=== PATIENT | female | born 1930 | race Caucasian/White ===

== ENCOUNTER 2016-08-28 20:53 | Emergency (ER) | payer MEDICARE, BC ==
[~2016-08-28] VITALS: Ht 154.9 cm; Wt 90.7 kg
[2016-08-28 22:00] VITALS: BP 139/90
[2016-08-28 22:04] LABS: BASO % 0 % (0-3); EOS % 2 % (0-3); HEMATOCRIT 35.1 % (36.0-47.0); HEMOGLOBIN 11.6 g/dL (12.0-15.5); LYMPH # 2.1 x10^3/uL (1.0-4.8); LYMPH % 24 % (24-48); MEAN CORPUSCULAR HEMOGLOBIN 31 pg (25-35); MEAN CORPUSCULAR HGB CONC 33 g/dL (31-37); MEAN CORPUSCULAR VOLUME 93 fL (79-100); MONO % 10 % (0-9); NEUT % 64 % (31-73); PLATELET COUNT 313 x10^3/uL (140-400); RED BLOOD COUNT 3.76 x10^6/uL (3.50-5.40); RED CELL DISTRIBUTION WIDTH 14.5 % (11.5-14.5); WHITE BLOOD COUNT 8.8 x10^3/uL (4.0-11.0)
[2016-08-28 22:15] LABS: CALCIUM 9.4 mg/dL (8.5-10.1); CREATININE 0.9 mg/dL (0.6-1.0); GFR 59.5; POTASSIUM 4.2 mmol/L (3.5-5.1)
[2016-08-28 22:22] LABS: ALBUMIN 3.1 g/dL (3.4-5.0); DIRECT BILIRUBIN 0.1 mg/dL (0.0-0.2); TOTAL BILIRUBIN 0.2 mg/dL (0.2-1.0); TOTAL PROTEIN 6.8 g/dL (6.4-8.2)
--- NOTE | 2016-08-28 22:51 | PHYS DOC ---
Past Medical History Past Medical History: Arthritis, Diabetes-Type II, Fibromyalgia, Hypertension Additional Past Medical Histor: NEUROPATHY Past Surgical History: Hysterectomy, Tonsillectomy Additional Past Surgical Histo: CATARACTS AND LENS IMPLANT TO BILAT EYES, COLON ABSCESS/RESECTION. Alcohol Use: None Drug Use: None Adult General Chief Complaint Chief Complaint: SHORTNESS OF BREATH HPI HPI Patient is a 85 year old female with history significant for hypertension and diabetes presents here today complaining of feeling short of breath earlier. Patient reports that she felt "weird feeling all over her body "with nausea. Patient reports that she thought that she was hungry earlier today so she walked over to the refrigerator to get something to eat while she was walking there she had a fleeting moment of shortness of breath. Patient reports she sat down and just didn't feel well. Patient reports his symptoms are pretty nonspecific. She ended up calling EMS because she still had this "weird feeling "all of her body. Patient is unable to levered any further about this weird feeling that she can't. Patient denies any fevers shakes chills, nausea vomiting diarrhea, chest pain, bowel pain, dysuria frequency or urgency. Patient denies any recent cough or URI symptoms. Patient denies any weakness, vision blurred vision headaches. Patient reports that she is had a full cardiac workup approximately 3-4 years ago and her implant polisher told her that her heart was normal. Patient is never had a cardiac catheter before. Patient has had a hysterectomy in the past however no other surgeries. She does not smoke drink or do any drugs. Patient is allergic to coffee. Patient's physical examination he has been unremarkable. Patient's alert awake and oriented 3. Patient's neuro exam is nonfocal. She is moving all her extremities well. Patient reports she normally walks with a walker.. Patient's heart-lung belly exam were all within normal limits. Patient was in no respiratory distress. Her lungs were clear with no wheezing rales or rhonchi. Her heart was regular rate and rhythm Patient's ER hospital course was significant for a normal workup in the ED. Patient's CBC chemistry troponin and BNP were all within normal limits. Patient' s chest x-ray revealed normal heart size without any infiltrates or effusions. A/P #1 short of breath. Etiology of the shortness of breath was unclear however the patient currently is asymptomatic. Patient's pulse ox is 95-99% in the ER. Patient's workup in the ER has not revealed any etiology for the "weird feeling " that she has been experiencing. Patient currently feels well. I discussed with the patient all the lab results and she feels very reassured and feels very comfortable with going home. Patient currently has no indication for further ER evaluation or inpatient. Review of Systems Review of Systems Constitutional: Denies fever or chills [] Eyes: Denies change in visual acuity, redness, or eye pain [] All other review systems are negative except as documented in the history of present illness portion Allergies Allergies Allergies Coded Allergies Type Severity Reaction Last Updated Verified Tetracyclines Allergy Intermediate 03/27/16 Yes amitriptyline Allergy Intermediate 03/27/16 Yes codeine Allergy Intermediate 03/27/16 Yes coffee (Coffea arabica) Allergy Intermediate 03/27/16 Yes erythromycin base Allergy Intermediate 03/27/16 Yes meperidine Allergy Intermediate 03/27/16 Yes morphine Allergy Intermediate 03/27/16 Yes prednisone Allergy Intermediate 03/27/16 Yes sucralose Allergy Intermediate 03/27/16 Yes Physical Exam Physical Exam Constitutional: Well developed, well nourished, no acute distress, non-toxic appearance. [] HENT: Normocephalic, atraumatic, bilateral external ears normal, oropharynx moist, no oral exudates, nose normal. [] Eyes: PERRLA, EOMI, conjunctiva normal, no discharge. [] Neck: Normal range of motion, no tenderness, supple, no stridor. [] Cardiovascular:Heart rate regular rhythm, no murmur [] Lungs & Thorax: Bilateral breath sounds clear to auscultation [] Abdomen: Bowel sounds normal, soft, no tenderness, no masses, no pulsatile masses. [] Skin: Warm, dry, no erythema, no rash. [] Back: No tenderness, no CVA tenderness. [] Extremities: No tenderness, no cyanosis, no clubbing, ROM intact, no edema. [] Neurologic: Alert and oriented X 3, normal motor function, normal sensory function, no focal deficits noted. [] Psychologic: Affect normal, judgement normal, mood normal. [] Current Patient Data Vital Signs Vital Signs Date Time Temp Pulse Resp B/P Pulse Ox O2 Delivery O2 Flow Rate FiO2 08/28/16 20:59 98.5 87 24 180/80 98 Room Air 98.5 Lab Values Laboratory Tests Test 08/28/16 21:38 White Blood Count 8.8x10^3/uL (4.0-11.0) Red Blood Count 3.76x10^6/uL (3.50-5.40) Hemoglobin 11.6g/dL (12.0-15.5) L Hematocrit 35.1% (36.0-47.0) L Mean Corpuscular Volume 93fL (79-100) Mean Corpuscular Hemoglobin 31pg (25-35) Mean Corpuscular Hemoglobin Concent 33g/dL (31-37) Red Cell Distribution Width 14.5% (11.5-14.5) Platelet Count 313x10^3/uL (140-400) Neutrophils (%) (Auto) 64% (31-73) Lymphocytes (%) (Auto) 24% (24-48) Monocytes (%) (Auto) 10% (0-9) H Eosinophils (%) (Auto) 2% (0-3) Basophils (%) (Auto) 0% (0-3) Neutrophils # (Auto) 5.7x10^3uL (1.8-7.7) Lymphocytes # (Auto) 2.1x10^3/uL (1.0-4.8) Monocytes # (Auto) 0.9x10^3/uL (0.0-1.1) Eosinophils # (Auto) 0.2x10^3/uL (0.0-0.7) Basophils # (Auto) 0.0x10^3/uL (0.0-0.2) Sodium Level 138mmol/L (136-145) Potassium Level 4.2mmol/L (3.5-5.1) Chloride Level 100mmol/L (98-107) Carbon Dioxide Level 28mmol/L (21-32) Anion Gap 10 (6-14) Blood Urea Nitrogen 27mg/dL (7-20) H Creatinine 0.9mg/dL (0.6-1.0) Estimated GFR (Cockcroft-Gault) 59.5 Glucose Level 176mg/dL (70-99) H Calcium Level 9.4mg/dL (8.5-10.1) Total Bilirubin 0.2mg/dL (0.2-1.0) Direct Bilirubin 0.1mg/dL (0.0-0.2) Aspartate Amino Transferase (AST) 20U/L (15-37) Alanine Aminotransferase (ALT) 14U/L (14-59) Alkaline Phosphatase 73U/L (46-116) Troponin I Quantitative < 0.017ng/mL (0.000-0.055) XP-Sin-V-Type Natriuretic Peptide 282pg/mL (0-449) Total Protein 6.8g/dL (6.4-8.2) Albumin 3.1g/dL (3.4-5.0) L Laboratory Tests 08/28/16 21:38 Laboratory Tests 08/28/16 21:38 EKG EKG [] Radiology/Procedures Radiology/Procedures [] Course & Med Decision Making Course & Med Decision Making Pertinent Labs and Imaging studies reviewed. (See chart for details) [] Dragon Disclaimer Dragon Disclaimer This electronic medical record was generated, in whole or in part, using a voice recognition dictation system. Departure Departure Impression: Primary Impression: Dyspnea Additional Impression: Weakness Disposition: 01 HOME, SELF-CARE Condition: IMPROVED Referrals: UNKNOWN PCP NAME (PCP) Patient Instructions: Shortness of Breath Additional Instructions: Please make an appointment to see her family doctor this week to be reevaluated. Please talk to him about whether or not you might need a B12 shot. Problem Qualifiers ANI PHAM MD Aug 28, 2016 22:51
--- NOTE | 2016-08-29 06:43 | EKG ---
[facility] [address] [place] [address] Test Date: 2016-08-28 Test Time: 21:00:55 Pat Name: JAMIE AGUILAR Department: Room: Gender: F [employer] Administrator: : 1930 Requested By: ANI PHAM Order Number: [id number] Reading MD: Virgil Cerna Measurements Intervals Gerald Rate: 89 P: 14 IN: 156 QRS: 12 QRSD: 66 T: 68 QT: 316 QTc: 390 Interpretive Statements SINUS RHYTHM LOW LIMB LEAD VOLTAGE T ABNORMALITY IN HIGH LATERAL LEADS RI6.01 Unconfirmed report No previous ECG available for comparison Electronically Signed On 08-29-2016 14:15:41 FIELD TRAINER by Virgil Cerna
--- NOTE | 2016-08-29 07:32 | RAD ---
EXAM: Chest one view. HISTORY: Shortness of breath, hypertension. COMPARISON: None. FINDINGS: A frontal view of the chest is obtained. Hyperinflation suggests chronic obstructive pulmonary disease. A mild opacity in the left costophrenic angle is most likely a fat pad versus atelectasis/scarring. There is no pneumothorax or pleural effusion. The heart is not enlarged. There are atherosclerotic calcifications of the aorta. IMPRESSION: 1. Hyperinflation suggests chronic obstructive pulmonary disease. 2. Mild left basilar atelectasis versus an epicardial fat pad.
== END 2016-08-28 23:30 | disposition home or self-care (01) ==
LOC: ER 20:53
DX: R06.00 Dyspnea, unspecified (principal); R53.1 Weakness; R11.0 Nausea; M19.90 Unspecified osteoarthritis, unspecified site; E11.40 Type 2 diabetes mellitus with diabetic neuropathy, unspecified; I10 Essential (primary) hypertension; M79.7 Fibromyalgia; Z90.710 Acquired absence of both cervix and uterus; Z88.5 Allergy status to narcotic agent; Z88.1 Allergy status to other antibiotic agents; Z88.8 Allergy status to other drugs, medicaments and biological substances; Z91.018 Allergy to other foods
CPT/HCPCS: 36415; 71010; 80048; 80076; 83880; 84484; 85027; 93005; 99285-25

== ENCOUNTER 2018-06-17 10:50 | Emergency (ER) | payer MEDICARE, BC ==
[~2018-06-17] VITALS: Ht 154.9 cm; Wt 90.7 kg
[2018-06-17] MEDS ORDERED: IV NORMAL SALINE 1000ML BAG 1,000 ML IV SCH (11:17)
--- NOTE | 2018-06-17 11:21 | PHYS DOC ---
Past Medical History Past Medical History: Arthritis, Diabetes-Type II, Fibromyalgia, Hypertension Additional Past Medical Histor: NEUROPATHY Past Surgical History: Hysterectomy, Tonsillectomy Additional Past Surgical Histo: CATARACTS AND LENS IMPLANT TO BILAT EYES, COLON ABSCESS/RESECTION. Alcohol Use: None Drug Use: None Adult General Chief Complaint Chief Complaint: DIARRHEA HPI HPI Patient is an 87-year-old female who arrives via EMS from her independent living facility, for complaints of diarrhea. She states she has been having diarrhea for about a month, but particularly worsened over the past week. She also complains of some generalized abdominal pain. She has not had any definite bloody stools. She has not had any fevers or chills, nausea or vomiting. She denies any recent travel or antibiotic use. There are no alleviating, or exacerbating factors to the patient's symptoms otherwise. Review of Systems Review of Systems Constitutional: Denies fever or chills [] Eyes: Denies change in visual acuity, redness, or eye pain [] HENT: Denies nasal congestion or sore throat [] Respiratory: Denies cough or shortness of breath [] Cardiovascular: The patient denies any shortness of breath, chest pain, palpitations, or orthopnea[] GI: No additional information not addressed in HPI [] : Denies dysuria or hematuria [] Musculoskeletal: Denies back pain or joint pain [] Integument: Denies rash or skin lesions [] Neurologic: Denies headache, focal weakness or sensory changes [] Endocrine: Denies polyuria or polydipsia [] All other systems were reviewed and found to be within normal limits, except as documented in this note. Current Medications Current Medications Current Medications Medications (Trade) Dose Ordered Sig/Ester Start Time Stop Time Status Last Admin Dose Admin Info (CONTRAST GIVEN -- Rx MONITORING) 1 each PRN DAILY PRN 06/17/18 13:30 06/19/18 13:29 Iohexol (Omnipaque 300 Mg/ml) 60 ml 1X ONCE 06/17/18 13:30 06/17/18 13:31 DC 06/17/18 13:47 60 ML Sodium Chloride 1,000 ml @ 100 mls/hr Q10H 06/17/18 11:17 06/17/18 21:16 06/17/18 11:17 100 MLS/HR Allergies Allergies Allergies Coded Allergies Type Severity Reaction Last Updated Verified Tetracyclines Allergy Intermediate 03/27/16 Yes amitriptyline Allergy Intermediate 03/27/16 Yes codeine Allergy Intermediate 03/27/16 Yes coffee (Coffea arabica) Allergy Intermediate 03/27/16 Yes erythromycin base Allergy Intermediate 03/27/16 Yes meperidine Allergy Intermediate 03/27/16 Yes morphine Allergy Intermediate 03/27/16 Yes prednisone Allergy Intermediate 03/27/16 Yes sucralose Allergy Intermediate 03/27/16 Yes Physical Exam Physical Exam PHYSICAL EXAM: CONSTITUTIONAL: Well developed, well nourished HEAD: normocephalic, atraumatic EENT: PERRL, EOMI. Conjunctivae normal color, sclerae non-icteric; moist mucous membranes. NECK: Supple, non-tender; no meningismus. LUNGS: Lungs CTA, breathing even and unlabored. Normal air movement. HEART: Regular rate and rhythm, no murmur CHEST: No deformity; non-tender ABDOMEN: The abdomen is soft, there is mild diffuse tenderness to palpation of the abdomen, without focal tenderness, rebound, or guarding, normal bowel sounds are present, no masses or bruits. EXTREM: Normal ROM; no deformity, no calf tenderness. Normal pulses palpable in all extremities. There is mild bilateral nonpitting pedal edema. SKIN: No rash; no diaphoresis NEURO: Alert; normal speech and cognition; CN's grossly intact; strength grossly intact without focal deficit. BACK: No CVA TTP. Current Patient Data Vital Signs Vital Signs Date Time Temp Pulse Resp B/P (MAP) Pulse Ox O2 Delivery O2 Flow Rate FiO2 06/17/18 10:50 98.0 72 16 181/82 (115) 99 Room Air 98.0 Lab Values Laboratory Tests Test 06/17/18 11:45 06/17/18 12:27 White Blood Count 8.7 x10^3/uL (4.0-11.0) Red Blood Count 4.01 x10^6/uL (3.50-5.40) Hemoglobin 12.4 g/dL (12.0-15.5) Hematocrit 37.5 % (36.0-47.0) Mean Corpuscular Volume 94 fL (79-100) Mean Corpuscular Hemoglobin 31 pg (25-35) Mean Corpuscular Hemoglobin Concent 33 g/dL (31-37) Red Cell Distribution Width 14.3 % (11.5-14.5) Platelet Count 326 x10^3/uL (140-400) Neutrophils (%) (Auto) 60 % (31-73) Lymphocytes (%) (Auto) 24 % (24-48) Monocytes (%) (Auto) 10 % (0-9) H Eosinophils (%) (Auto) 5 % (0-3) H Basophils (%) (Auto) 1 % (0-3) Neutrophils # (Auto) 5.2 x10^3uL (1.8-7.7) Lymphocytes # (Auto) 2.1 x10^3/uL (1.0-4.8) Monocytes # (Auto) 0.9 x10^3/uL (0.0-1.1) Eosinophils # (Auto) 0.5 x10^3/uL (0.0-0.7) Basophils # (Auto) 0.0 x10^3/uL (0.0-0.2) Sodium Level 141 mmol/L (136-145) Potassium Level 3.9 mmol/L (3.5-5.1) Chloride Level 103 mmol/L (98-107) Carbon Dioxide Level 31 mmol/L (21-32) Anion Gap 7 (6-14) Blood Urea Nitrogen 15 mg/dL (7-20) Creatinine 1.2 mg/dL (0.6-1.0) H Estimated GFR (Cockcroft-Gault) 42.5 BUN/Creatinine Ratio 13 (6-20) Glucose Level 107 mg/dL (70-99) H Lactic Acid Level 1.3 mmol/L (0.4-2.0) Calcium Level 9.5 mg/dL (8.5-10.1) Total Bilirubin 0.5 mg/dL (0.2-1.0) Aspartate Amino Transferase (AST) 24 U/L (15-37) Alanine Aminotransferase (ALT) 20 U/L (14-59) Alkaline Phosphatase 75 U/L (46-116) Total Protein 7.6 g/dL (6.4-8.2) Albumin 3.6 g/dL (3.4-5.0) Albumin/Globulin Ratio 0.9 (1.0-1.7) L Lipase 81 U/L (73-393) Urine Collection Type Unknown Urine Color Yellow Urine Clarity Clear Urine pH 8.0 Urine Specific [place] 1.010 Urine Protein Negative mg/dL (NEG-TRACE) Urine Glucose (UA) Negative mg/dL (NEG) Urine Ketones (Stick) Negative mg/dL (NEG) Urine Blood Negative (NEG) Urine Nitrite Negative (NEG) Urine Bilirubin Negative (NEG) Urine Urobilinogen Dipstick 0.2 mg/dL (0.2 mg/dL) Urine Leukocyte Esterase Moderate (NEG) Urine RBC 1-2 /HPF (0-2) Urine WBC 1-4 /HPF (0-4) Urine Squamous Epithelial Cells Few /LPF Urine Amorphous Sediment Present /HPF Urine Bacteria Many /HPF (0-FEW) Urine Hyaline Casts Few /HPF Urine Mucus Slight /LPF Urine Yeast Present /HPF Laboratory Tests 06/17/18 11:45 Laboratory Tests 06/17/18 11:45 EKG EKG [] Radiology/Procedures Radiology/Procedures [PROCEDURE: CT ABD PELV W/ IV CONTRST ONLY PQRS Compliance statement: One or more of the following individualized dose reduction techniques were utilized for this examination: 1. Automated exposure control. 2. Adjustment of the mA and/or kV according to patient size. 3. Use of iterative reconstruction technique. Indication:ABD PAIN, DIARRHEA. TECHNIQUE: CT abdomen and pelvis with IV contrast with multiplanar reformats. COMPARISON: None FINDINGS: Heart is normal in size. No pericardial or pleural effusion. Clear lung bases. Moderate sliding hiatal hernia. Liver, spleen, gallbladder, pancreas, adrenals within normal limits. No nephrolithiasis or hydronephrosis. No free pelvic fluid or ascites. No enlarged retroperitoneal or pelvic adenopathy. Moderate diffuse abdominal aortic atherosclerotic disease. Anastomotic sutures are seen in the rectosigmoid colon. Mild sigmoid diverticulosis. No bowel obstruction. Normal appendix. Status post hysterectomy. Urinary bladder is within normal limits. No pneumoperitoneum. No suspicious bony lesion. Lower lumbar spine facet arthropathy. Multilevel degenerative disc disease in the lumbar spine. IMPRESSION: 1. No acute findings. 2. Moderate sliding hiatal hernia. No bowel obstruction. ] Course & Med Decision Making Course & Med Decision Making Pertinent Labs and Imaging studies reviewed. (See chart for details) [3:10 PM: The patient's daughter arrived in the emergency department. She states that the patient has been having diarrhea for about a week or so, not for a month as the patient stated. She also states that several other family members have had symptoms consistent with gastroenteritis over the past several days. She is currently living in an independent living facility, but the facility also does have assisted living, and the patient's daughter states that she is in process in transferring the patient to the assisted living side of the facility. I discussed the continued use of Imodium, and need for close outpatient follow-up for stool studies if the patient's symptoms persist. She has not had a bowel movement since arrival in the emergency department, she is still unable to provide a stool specimen. I did discuss the case with the patient's daughter extensively. There is no dictation for admission at this time. The patient does walk with a walker at home and is no more unsteady at this time and she has been chronically. I do think she would benefit from assisted living instead of independent living, and the daughter agrees. I did run the case by the hospitalist, but we both agree there is no indication for admission at this time. Dragon Disclaimer Dragon Disclaimer This electronic medical record was generated, in whole or in part, using a voice recognition dictation system. Departure Departure Impression: Primary Impression: Diarrhea Disposition: 01 HOME, SELF-CARE Condition: STABLE Referrals: SALTY COOPER MD Patient Instructions: Diarrhea Additional Instructions: Return to medical care for any new or worsening symptoms, development of abdominal pain, confusion, weakness, fever, bloody diarrhea, or any other new or concerning symptoms. Follow-up with your primary care provider for further evaluation and treatment, and to provide a stool specimen if symptoms persist. GOOD ALVES MD Jun 17, 2018 11:21
[2018-06-17 12:37] LABS: BILIRUBIN,URINE NEGATIVE (NEG); CLARITY,URINE CLEAR; COLOR,URINE YELLOW; NITRITE,URINE NEGATIVE (NEG); PROTEIN,URINE NEGATIVE (NEG-TRACE); UROBILINOGEN,URINE 0.2 mg/dL (0.2 mg/dL)
[2018-06-17 12:58] LABS: BASO % 1 % (0-3); EOS # 0.5 x10^3/uL (0.0-0.7); EOS % 5 % (0-3); HEMATOCRIT 37.5 % (36.0-47.0); HEMOGLOBIN 12.4 g/dL (12.0-15.5); LYMPH # 2.1 x10^3/uL (1.0-4.8); LYMPH % 24 % (24-48); MEAN CORPUSCULAR HEMOGLOBIN 31 pg (25-35); MEAN CORPUSCULAR HGB CONC 33 g/dL (31-37); MEAN CORPUSCULAR VOLUME 94 fL (79-100); MONO # 0.9 x10^3/uL (0.0-1.1); MONO % 10 % (0-9); NEUT # 5.2 x10^3uL (1.8-7.7); NEUT % 60 % (31-73); PLATELET COUNT 326 x10^3/uL (140-400); RED BLOOD COUNT 4.01 x10^6/uL (3.50-5.40); RED CELL DISTRIBUTION WIDTH 14.3 % (11.5-14.5); WHITE BLOOD COUNT 8.7 x10^3/uL (4.0-11.0)
[2018-06-17 13:01] LABS: SQUAMOUS EPITHELIAL CELL,UR FEW /LPF
[2018-06-17 13:02] LABS: AMORPHOUS SEDIMENT,UR PRESENT /HPF; BACTERIA,URINE MANY /HPF (0-FEW); HYALINE CASTS, URINE FEW /HPF; YEAST,URINE PRESENT /HPF
[2018-06-17 13:07] LABS: CALCIUM 9.5 mg/dL (8.5-10.1); CREATININE 1.2 mg/dL (0.6-1.0); GFR 42.5; POTASSIUM 3.9 mmol/L (3.5-5.1)
[2018-06-17 13:18] LABS: ALBUMIN 3.6 g/dL (3.4-5.0); ALBUMIN/GLOBULIN RATIO 0.9 (1.0-1.7); TOTAL BILIRUBIN 0.5 mg/dL (0.2-1.0); TOTAL PROTEIN 7.6 g/dL (6.4-8.2)
[2018-06-17] MEDS ORDERED: IOHEXOL 300 MG/ML 100ML VIAL. IV ONE (13:30)
[2018-06-17] MEDS ORDERED: CONTRAST GIVEN. MC PRN (13:30)
--- NOTE | 2018-06-17 13:56 | RAD ---
PQRS Compliance statement: One or more of the following individualized dose reduction techniques were utilized for this examination: 1. Automated exposure control. 2. Adjustment of the mA and/or kV according to patient size. 3. Use of iterative reconstruction technique. Indication:ABD PAIN, DIARRHEA. TECHNIQUE: CT abdomen and pelvis with IV contrast with multiplanar reformats. COMPARISON: None FINDINGS: Heart is normal in size. No pericardial or pleural effusion. Clear lung bases. Moderate sliding hiatal hernia. Liver, spleen, gallbladder, pancreas, adrenals within normal limits. No nephrolithiasis or hydronephrosis. No free pelvic fluid or ascites. No enlarged retroperitoneal or pelvic adenopathy. Moderate diffuse abdominal aortic atherosclerotic disease. Anastomotic sutures are seen in the rectosigmoid colon. Mild sigmoid diverticulosis. No bowel obstruction. Normal appendix. Status post hysterectomy. Urinary bladder is within normal limits. No pneumoperitoneum. No suspicious bony lesion. Lower lumbar spine facet arthropathy. Multilevel degenerative disc disease in the lumbar spine. IMPRESSION: 1. No acute findings. 2. Moderate sliding hiatal hernia. No bowel obstruction. Electronically signed by: Herbie Membreno DO (06/17/2018 1:52 PM) [facility]
[2018-06-17 16:00] VITALS: BP 187/70
== END 2018-06-17 16:16 | disposition home or self-care (01) ==
LOC: ER 10:50
DX: R19.7 Diarrhea, unspecified (principal); K44.9 Diaphragmatic hernia without obstruction or gangrene; R10.84 Generalized abdominal pain; I10 Essential (primary) hypertension; E11.40 Type 2 diabetes mellitus with diabetic neuropathy, unspecified; Z90.710 Acquired absence of both cervix and uterus; Z88.1 Allergy status to other antibiotic agents; Z88.5 Allergy status to narcotic agent; Z91.011 Allergy to milk products; Z91.018 Allergy to other foods
CPT/HCPCS: 36415; 74177; 80053; 81001; 83605; 83690; 85025; 87086; 96360; 99284; J7030; Q9967

== ENCOUNTER 2019-03-28 16:38 | Emergency (ER) | payer BC, MEDICARE ==
[~2019-03-28] VITALS: Ht 157.5 cm; Wt 74.8 kg
--- NOTE | 2019-03-28 17:32 | RAD ---
KNEE LEFT 3V History: Pain. History of trauma. Technique: 3 views left knee Comparison: None. Findings: Normal alignment. No fracture. Vascular calcifications. No significant knee joint effusion. Dystrophic soft tissue calcifications. Mild medial and patellofemoral compartment DJD. Impression: 1. No acute osseous abnormality. Electronically signed by: Arnulfo Rausch DO (03/28/2019 5:29 PM) [id number]
--- NOTE | 2019-03-28 17:49 | RAD ---
CT Head W/O Contrast: History: Status post fall Comparison: March 27, 2016 Axial images were obtained without contrast. There is moderate diffuse atrophy. There is no mass effect, extraaxial fluid collections or hydrocephalus. There is no gross bleed. Mild to moderate, patchy periventricular and subcortical white matter hypoattenuation is seen. There is no focal loss of garcia-white matter distinction to suggest acute ischemia, i.e. stroke. There is mild motion artifact. Impression: No acute findings. RS Compliance Statement: One or more of the following individualized dose reduction techniques were utilized for this examination: 1. Automated exposure control 2. Adjustment of the mA and/or kV according to patient size 3. Use of iterative reconstruction technique Electronically signed by: Eusebio العلي III, MD (03/28/2019 5:46 PM) [id number]
--- NOTE | 2019-03-28 17:56 | RAD ---
Exam: CT lumbar spine without contrast INDICATION: Fall TECHNIQUE: Sequential axial images through the lumbar spine obtained without IV contrast. Sagittal and coronal reformatted images were reconstructed from the axial data and reviewed. Comparisons: None FINDINGS: Vertebral body heights are well-maintained. Grade 1 retrolisthesis of L1 on L2, L2 on L3. There is a grade 1 anterolisthesis of L5 on S1. No acute fracture in the lumbar spine. There is multilevel spondylotic changes lumbar spine, with broad-based disc bulges throughout the lumbar spine with varying degrees of facet arthropathy mild to moderate spinal canal stenosis is noted at L4-L5 secondary to disc bulge, ligament flavum thickening and facet arthropathy. Moderate-sized hiatal hernia is noted. Otherwise, Visualized paraspinal soft tissues are unremarkable. IMPRESSION: 1. Negative CT L-spine for acute traumatic injury. 2. Spondylotic changes described above. 3. Moderate-sized hiatal hernia. Exposure: One or more of the following in the visualized dose reduction techniques were utilized for this examination: 1. Automated exposure control 2. Adjustment of the MA and/or KV according to patient size 3. Use of iterative of reconstructive technique Electronically signed by: Aleksandr Triana MD (03/28/2019 5:53 PM) [facility]
[2019-03-28 18:22] LABS: BILIRUBIN,URINE NEGATIVE (NEG); CLARITY,URINE CLEAR; COLOR,URINE YELLOW; NITRITE,URINE NEGATIVE (NEG); PH,URINE 7.5; PROTEIN,URINE NEGATIVE (NEG-TRACE); UROBILINOGEN,URINE 0.2 mg/dL (0.2 mg/dL)
[2019-03-28 18:26] LABS: HYALINE CASTS, URINE MANY /HPF; SQUAMOUS EPITHELIAL CELL,UR MANY /LPF
[2019-03-28 18:27] LABS: BACTERIA,URINE FEW /HPF (0-FEW); WBC,URINE TNTC /HPF (0-4)
[2019-03-28] MEDS ORDERED: NITR100C62 PO (19:39)
--- NOTE | 2019-03-28 19:40 | PHYS DOC ---
Past Medical History Past Medical History: Arthritis, Diabetes-Type II, Fibromyalgia, Hypertension Additional Past Medical Histor: NEUROPATHY (ORQUIDEA LEE APRN) Past Surgical History: Hysterectomy, Tonsillectomy Additional Past Surgical Histo: CATARACTS AND LENS IMPLANT TO BILAT EYES, COLON ABSCESS/RESECTION. (ORQUIDEA LEE APRN) Alcohol Use: None Drug Use: None (ORQUIDEA LEE APRN) Attending Signature I have participated in the care of this patient and I have reviewed and agree with all pertinent clinical information above including history, exam, and recommendations. (DEWEY SARGENT MD) Adult General Chief Complaint Chief Complaint: MECHANICAL FALL HPI HPI Patient is a 88 year old with history of diabetes, hypertension, fibromyalgia, who presents to the ED today to be evaluated status post falling. Patient states she was walking outside with her walker when she got tangled up with her own pants and fell down. She states she landed on her buttocks. She denies any loss of consciousness. She really doesn't have any complaints of pain but she states she landed on her buttocks which is sore. Denies hitting her head on the ground. (ORQUIDEA LEE APRN) Review of Systems Review of Systems Constitutional: Denies fever or chills [] Eyes: Denies change in visual acuity, redness, or eye pain [] HENT: Denies nasal congestion or sore throat [] Respiratory: Denies cough or shortness of breath [] Cardiovascular: No additional information not addressed in HPI [] GI: Denies abdominal pain, nausea, vomiting, bloody stools or diarrhea [] : Denies dysuria or hematuria [] Musculoskeletal: Reports low back Integument: Denies rash or skin lesions [] Neurologic: Denies headache, focal weakness or sensory changes [] All other systems were reviewed and found to be within normal limits, except as documented in this note. (ORQUIDEA LEE APRN) Current Medications Current Medications Current Medications Medications (Trade) Dose Ordered Sig/Ester Start Time Stop Time Status Last Admin Dose Admin Ceftriaxone Sodium (Rocephin Im) 1 gm 1X ONCE 03/28/19 21:00 03/28/19 21:01 DC 03/28/19 21:57 1 GM Lidocaine HCl (Xylocaine-Mpf 1% 2ml Vial) 2 ml 1X ONCE 03/28/19 21:00 03/28/19 21:01 DC 03/28/19 21:57 2 ML (DEWEY SARGENT MD) Allergies Allergies Allergies Coded Allergies Type Severity Reaction Last Updated Verified Tetracyclines Allergy Intermediate 03/27/16 Yes amitriptyline Allergy Intermediate 03/27/16 Yes codeine Allergy Intermediate 03/27/16 Yes coffee (Coffea arabica) Allergy Intermediate 03/27/16 Yes erythromycin base Allergy Intermediate 03/27/16 Yes meperidine Allergy Intermediate 03/27/16 Yes morphine Allergy Intermediate 03/27/16 Yes prednisone Allergy Intermediate 03/27/16 Yes sucralose Allergy Intermediate 03/27/16 Yes (DEWEY SARGENT MD) Physical Exam Physical Exam Constitutional: Well developed, well nourished, no acute distress, non-toxic appearance. [] HENT: Normocephalic, atraumatic, bilateral external ears normal, oropharynx moist, no oral exudates, nose normal. [] Eyes: PERRLA, EOMI, conjunctiva normal, no discharge. [] Neck: Normal range of motion, no tenderness, supple, no stridor. [] Cardiovascular:Heart rate regular rhythm, no murmur [] Lungs & Thorax: Bilateral breath sounds clear to auscultation [] Abdomen: Bowel sounds normal, soft, no tenderness, no masses, no pulsatile masses. [] Skin: Warm, dry, no erythema, no rash. Bruising noted on the left elbow with no pain Back: No tenderness, no CVA tenderness. [] Extremities: No tenderness, no cyanosis, no clubbing, ROM intact, no edema. [] Neurologic: Alert and oriented X 3, normal motor function, normal sensory function, no focal deficits noted. Cranial nerves II through XII intact Psychologic: Affect normal, judgement normal, mood normal. [] (ORQUIDEA LEE APRN) Current Patient Data Vital Signs Vital Signs Date Time Temp Pulse Resp B/P (MAP) Pulse Ox O2 Delivery O2 Flow Rate FiO2 03/28/19 22:00 98 20 94 03/28/19 16:38 98.9 152/67 (95) Room Air 98.9 (DEWEY SARGENT MD) Lab Values Laboratory Tests Test 03/28/19 18:10 Urine Collection Type Unknown Urine Color Yellow Urine Clarity Clear Urine pH 7.5 Urine Specific [place] 1.015 Urine Protein Negative mg/dL (NEG-TRACE) Urine Glucose (UA) 100 mg/dL (NEG) Urine Ketones (Stick) Trace mg/dL (NEG) Urine Blood Small (NEG) Urine Nitrite Negative (NEG) Urine Bilirubin Negative (NEG) Urine Urobilinogen Dipstick 0.2 mg/dL (0.2 mg/dL) Urine Leukocyte Esterase Large (NEG) Urine RBC 6-10 /HPF (0-2) Urine WBC Tntc /HPF (0-4) Urine Squamous Epithelial Cells Many /LPF Urine Bacteria Few /HPF (0-FEW) Urine Hyaline Casts Many /HPF Urine Mucus Marked /LPF (DEWEY SARGENT MD) EKG EKG [] (ORQUIDEA LEE APRN) Radiology/Procedures Radiology/Procedures []PROCEDURE: CT HEAD WO CONTRAST CT Head W/O Contrast: History: Status post fall Comparison: March 27, 2016 Axial images were obtained without contrast. There is moderate diffuse atrophy. There is no mass effect, extraaxial fluid collections or hydrocephalus. There is no gross bleed. Mild to moderate, patchy periventricular and subcortical white matter hypoattenuation is seen. There is no focal loss of garcia-white matter distinction to suggest acute ischemia, i.e. stroke. There is mild motion artifact. Impression: No acute findings. PQRS Compliance Statement: One or more of the following individualized dose reduction techniques were utilized for this examination: 1. Automated exposure control 2. Adjustment of the mA and/or kV according to patient size 3. Use of iterative reconstruction technique Electronically signed by: Tima Mohr III, MD (03/28/2019 5:46 PM) [facility] DICTATED and SIGNED BY: TIMA MOHR III, MD DATE: 03/28/19 3644 PROCEDURE: KNEE LEFT 3V KNEE LEFT 3V History: Pain. History of trauma. Technique: 3 views left knee Comparison: None. Findings: Normal alignment. No fracture. Vascular calcifications. No significant knee joint effusion. Dystrophic soft tissue calcifications. Mild medial and patellofemoral compartment DJD. Impression: 1. No acute osseous abnormality. Electronically signed by: Arnulfo Rausch DO (03/28/2019 5:29 PM) [id number] DICTATED and SIGNED BY: ARNULFO RAUSCH DO DATE: 03/28/19 7029 PROCEDURE: CT LUMBAR SPINE WO CONTRAST Exam: CT lumbar spine without contrast INDICATION: Fall TECHNIQUE: Sequential axial images through the lumbar spine obtained without IV contrast. Sagittal and coronal reformatted images were reconstructed from the axial data and reviewed. Comparisons: None FINDINGS: Vertebral body heights are well-maintained. Grade 1 retrolisthesis of L1 on L2, L2 on L3. There is a grade 1 anterolisthesis of L5 on S1. No acute fracture in the lumbar spine. There is multilevel spondylotic changes lumbar spine, with broad-based disc bulges throughout the lumbar spine with varying degrees of facet arthropathy mild to moderate spinal canal stenosis is noted at L4-L5 secondary to disc bulge, ligament flavum thickening and facet arthropathy. Moderate-sized hiatal hernia is noted. Otherwise, Visualized paraspinal soft tissues are unremarkable. IMPRESSION: 1. Negative CT L-spine for acute traumatic injury. 2. Spondylotic changes described above. 3. Moderate-sized hiatal hernia. Exposure: One or more of the following in the visualized dose reduction techniques were utilized for this examination: 1. Automated exposure control 2. Adjustment of the MA and/or KV according to patient size 3. Use of iterative of reconstructive technique Electronically signed by: Aleksandr Stanley MD (03/28/2019 5:53 PM) [facility] DICTATED and SIGNED BY: ALEKSANDR STANLEY MD DATE: 03/28/19 1754 (ORQUIDEA LEE APRN) Course & Med Decision Making Course & Med Decision Making Pertinent Labs and Imaging studies reviewed. (See chart for details) This is a 88-year-old female patient presented to the ED today to be evaluated for status post falling, no loss of consciousness. CT of the head is negative for any acute findings. Left knee and lumbar spine CT is negative for any acute findings. Urine analysis is noted for UTI, discharged on MicroBid. Follow-up with PCP in one week. Patient was given Rocephin 1 g IM in the ED. I spoke to patient's daughter before patient was discharged, patient at times appears slightly confused. Daughter stated this has been going on for a while and she was suspicious patient could be having a UTI. Inquired from patient's daughter how safe patient will be discharged back to the independent living facility she came from, daughter states patient will be very safe and she prefers patient to be discharged back. (ORQUIDEA LEE APRN) Dragon Disclaimer Dragon Disclaimer This electronic medical record was generated, in whole or in part, using a voice recognition dictation system. (ORQUIDEA LEE APRN) Departure Departure Impression: Primary Impression: Lumbar contusion Additional Impressions: Fall from standing Urinary tract infection Disposition: 01 HOME, SELF-CARE Condition: STABLE Referrals: UNKNOWN PCP NAME (PCP) follow up with your doctor in one week Patient Instructions: Contusion, [id number], Urinary Tract Infection Additional Instructions: You were evaluated after falling. Your CAT scan of the head and lumbar spine as well as left knee x-rays are negative. You have urinary tract infection, we put you on antibiotics, ensure you complete them. Scripts [mac] 25 mg/ 5 ml No Conflict Check 20 ML PO for 7 Days, #280 ML 0 Refills Prov: DEWEY SARGENT MD 03/28/19 Nitrofurantoin Monohyd/M-Cryst (MACROBID 100 MG CAPSULE) 100 Mg Capsule 1 CAP PO BID, #14 CAP Prov: ORQUIDEA LEE APRN 03/28/19 Problem Qualifiers Primary Impression: Lumbar contusion Encounter type: initial encounter Qualified Codes: S30.0XXA - Contusion of lower back and pelvis, initial encounter Additional Impressions: Fall from standing Encounter type: initial encounter Qualified Codes: W19.XXXA - Unspecified fall, initial encounter Urinary tract infection Urinary tract infection type: site unspecified Hematuria presence: without hematuria Qualified Codes: N39.0 - Urinary tract infection, site not specified ORQUIDEA LEE APRN Mar 28, 2019 19:40 DEWEY SARGENT MD Mar 29, 2019 04:01
[2019-03-28] MEDS ORDERED: cefTRIAXone IM 1 GM VIAL IM ONE (21:00)
[2019-03-28] MEDS ORDERED: LIDOCAINE 1% PF 2 ML VIAL. INJ ONE (21:00)
[2019-03-28] MEDS ORDERED: [UNRECOGNIZED DRUG - OTHER] PO (21:43)
[2019-03-28 22:00] VITALS: BP 161/69
== END 2019-03-28 22:52 | disposition home or self-care (01) ==
LOC: ER 16:38
DX: S30.0XXA Contusion of lower back and pelvis, initial encounter (principal); N39.0 Urinary tract infection, site not specified; M25.462 Effusion, left knee; R51 Headache; K44.9 Diaphragmatic hernia without obstruction or gangrene; E11.40 Type 2 diabetes mellitus with diabetic neuropathy, unspecified; I10 Essential (primary) hypertension; Z90.710 Acquired absence of both cervix and uterus; Z88.1 Allergy status to other antibiotic agents; Z88.5 Allergy status to narcotic agent; Z91.011 Allergy to milk products; Z88.8 Allergy status to other drugs, medicaments and biological substances; W18.39XA Other fall on same level, initial encounter; Y93.89 Activity, other specified; Y92.89 Other specified places as the place of occurrence of the external cause; Y99.8 Other external cause status
CPT/HCPCS: 70450; 72131; 73562; 81001; 87086; 96372; 99285; J0696

== ENCOUNTER 2019-04-05 16:59 | Inpatient (IN) | payer MEDICARE, OTHER ==
[~2019-04-05] VITALS: Ht 154.9 cm; Wt 76.2 kg
[~2019-04-05 16:59] MED LIST: NITR100C62 PO; [UNRECOGNIZED DRUG - OTHER] PO
--- NOTE | 2019-04-05 17:32 | PHYS DOC ---
Past Medical History Past Medical History: Arthritis, Diabetes-Type II, Fibromyalgia, Hypertension, Other Additional Past Medical Histor: NEUROPATHY (CHUY GUTIÉRREZ APRN) Past Surgical History: Hysterectomy, Tonsillectomy, Other Additional Past Surgical Histo: CATARACTS AND LENS IMPLANT TO BILAT EYES, COLON ABSCESS/RESECTION. (CHUY GUTIÉRREZ APRN) Alcohol Use: None Drug Use: None (CHUY GUTIÉRREZ APRN) Attending Signature I have participated in the care of this patient and I have reviewed and agree with all pertinent clinical information above including history, exam, and recommendations. (DEWEY SARGENT MD) Adult General Chief Complaint Chief Complaint: ALTERED MENTAL STATUS HPI HPI Patient is a 88 year old female who presents with was brought in by EMS because daughter called and stated that the mother was acting more altered than usual and has not been taking her medications. Patient was diagnosed with a urinary tract infection on March 28, 2019 and was put on Macrobid. Daughter states s he's not been taking any of her medications. Patient states she has been taking her medications and she is unsure of why the daughter called EMS. (CHUY GUTIÉRREZ APRN) Review of Systems Review of Systems Neurologic: AMS. Denies headache, focal weakness or sensory changes [] All other systems were reviewed and found to be within normal limits, except as documented in this note. (CHUY GUTIÉRREZ APRN) Current Medications Current Medications Current Medications Medications (Trade) Dose Ordered Sig/Ester Start Time Stop Time Status Last Admin Dose Admin Acetaminophen (Tylenol) 650 mg PRN Q4HRS PRN 04/05/19 19:15 04/06/19 19:14 Fentanyl Citrate (Fentanyl 2ml Vial) 50 mcg PRN Q1HR PRN 04/05/19 19:15 04/06/19 19:14 UNV Ondansetron HCl (Zofran) 4 mg PRN Q8HRS PRN 04/05/19 19:15 04/06/19 19:14 Sodium Chloride 1,000 ml @ 1,000 mls/hr 1X ONCE 04/05/19 17:45 04/05/19 18:44 DC 04/05/19 18:20 1,000 MLS/HR (DEWEY SARGENT MD) Allergies Allergies Allergies Coded Allergies Type Severity Reaction Last Updated Verified Tetracyclines Allergy Intermediate 03/27/16 Yes amitriptyline Allergy Intermediate 03/27/16 Yes codeine Allergy Intermediate 03/27/16 Yes coffee (Coffea arabica) Allergy Intermediate 03/27/16 Yes erythromycin base Allergy Intermediate 03/27/16 Yes meperidine Allergy Intermediate 03/27/16 Yes morphine Allergy Intermediate 03/27/16 Yes prednisone Allergy Intermediate 03/27/16 Yes sucralose Allergy Intermediate 03/27/16 Yes (DEWEY SARGENT MD) Physical Exam Physical Exam Constitutional: Well developed, well nourished, no acute distress, non-toxic appearance. [] HENT: Normocephalic, atraumatic, bilateral external ears normal, oropharynx moist, no oral exudates, nose normal. [] Eyes: PERRLA, EOMI, conjunctiva normal, no discharge. [] Neck: Normal range of motion, no tenderness, supple, no stridor. [] Cardiovascular:Heart rate regular rhythm, no murmur [] Lungs & Thorax: Bilateral upper breath sounds clear and lower diminished to auscultation [] Abdomen: Bowel sounds normal, soft, no tenderness, no masses, no pulsatile masses. [] Skin: Warm, dry, no erythema, no rash. [] Back: No tenderness, no CVA tenderness. [] Extremities: No tenderness, no cyanosis, no clubbing, ROM intact, Right leg 1+ a nd left leg 2+ edema. [] Neurologic: Alert and oriented X 3, normal motor function, normal sensory function, no focal deficits noted. [] Psychologic: Affect normal, judgement normal, mood normal. [] (CHUY GUTIÉRREZ APRN) Current Patient Data Vital Signs Vital Signs Date Time Temp Pulse Resp B/P (MAP) Pulse Ox O2 Delivery O2 Flow Rate FiO2 04/05/19 19:33 85 24 99 04/05/19 17:05 98.3 200/92 (128) Room Air 98.3 (DEWEY SARGENT MD) Lab Values Laboratory Tests Test 04/05/19 18:15 04/05/19 19:08 White Blood Count 10.0 x10^3/uL (4.0-11.0) Red Blood Count 4.18 x10^6/uL (3.50-5.40) Hemoglobin 12.4 g/dL (12.0-15.5) Hematocrit 36.9 % (36.0-47.0) Mean Corpuscular Volume 88 fL (79-100) Mean Corpuscular Hemoglobin 30 pg (25-35) Mean Corpuscular Hemoglobin Concent 34 g/dL (31-37) Red Cell Distribution Width 13.9 % (11.5-14.5) Platelet Count 319 x10^3/uL (140-400) Neutrophils (%) (Auto) 55 % (31-73) Lymphocytes (%) (Auto) 31 % (24-48) Monocytes (%) (Auto) 11 % (0-9) H Eosinophils (%) (Auto) 2 % (0-3) Basophils (%) (Auto) 1 % (0-3) Neutrophils # (Auto) 5.4 x10^3/uL (1.8-7.7) Lymphocytes # (Auto) 3.1 x10^3/uL (1.0-4.8) Monocytes # (Auto) 1.1 x10^3/uL (0.0-1.1) Eosinophils # (Auto) 0.2 x10^3/uL (0.0-0.7) Basophils # (Auto) 0.1 x10^3/uL (0.0-0.2) Sodium Level 143 mmol/L (136-145) Potassium Level 3.4 mmol/L (3.5-5.1) L Chloride Level 105 mmol/L (98-107) Carbon Dioxide Level 29 mmol/L (21-32) Anion Gap 9 (6-14) Blood Urea Nitrogen 22 mg/dL (7-20) H Creatinine 0.8 mg/dL (0.6-1.0) Estimated GFR (Cockcroft-Gault) 67.7 BUN/Creatinine Ratio 28 (6-20) H Glucose Level 169 mg/dL (70-99) H Lactic Acid Level 2.0 mmol/L (0.4-2.0) Calcium Level 9.4 mg/dL (8.5-10.1) Total Bilirubin 0.5 mg/dL (0.2-1.0) Aspartate Amino Transferase (AST) 21 U/L (15-37) Alanine Aminotransferase (ALT) 17 U/L (14-59) Alkaline Phosphatase 84 U/L (46-116) Troponin I Quantitative < 0.017 ng/mL (0.000-0.055) Total Protein 6.8 g/dL (6.4-8.2) Albumin 3.3 g/dL (3.4-5.0) L Albumin/Globulin Ratio 0.9 (1.0-1.7) L Urine Collection Type Unknown Urine Color Yellow Urine Clarity Clear Urine pH 7.5 Urine Specific [place] 1.015 Urine Protein Negative mg/dL (NEG-TRACE) Urine Glucose (UA) 100 mg/dL (NEG) Urine Ketones (Stick) Trace mg/dL (NEG) Urine Blood Trace (NEG) Urine Nitrite Negative (NEG) Urine Bilirubin Negative (NEG) Urine Urobilinogen Dipstick 1.0 mg/dL (0.2 mg/dL) Urine Leukocyte Esterase Large (NEG) Urine RBC 3-5 /HPF (0-2) Urine WBC Tntc /HPF (0-4) Urine Squamous Epithelial Cells Many /LPF Urine Bacteria Few /HPF (0-FEW) Urine Hyaline Casts Moderate /HPF Urine Mucus Marked /LPF Laboratory Tests 04/05/19 18:15 Laboratory Tests 04/05/19 18:15 (DEWEY SARGENT MD) Lab Values Laboratory Tests Test 04/05/19 18:15 White Blood Count 10.0 x10^3/uL (4.0-11.0) Red Blood Count 4.18 x10^6/uL (3.50-5.40) Hemoglobin 12.4 g/dL (12.0-15.5) Hematocrit 36.9 % (36.0-47.0) Mean Corpuscular Volume 88 fL (79-100) Mean Corpuscular Hemoglobin 30 pg (25-35) Mean Corpuscular Hemoglobin Concent 34 g/dL (31-37) Red Cell Distribution Width 13.9 % (11.5-14.5) Platelet Count 319 x10^3/uL (140-400) Neutrophils (%) (Auto) 55 % (31-73) Lymphocytes (%) (Auto) 31 % (24-48) Monocytes (%) (Auto) 11 % (0-9) H Eosinophils (%) (Auto) 2 % (0-3) Basophils (%) (Auto) 1 % (0-3) Neutrophils # (Auto) 5.4 x10^3/uL (1.8-7.7) Lymphocytes # (Auto) 3.1 x10^3/uL (1.0-4.8) Monocytes # (Auto) 1.1 x10^3/uL (0.0-1.1) Eosinophils # (Auto) 0.2 x10^3/uL (0.0-0.7) Basophils # (Auto) 0.1 x10^3/uL (0.0-0.2) Sodium Level 143 mmol/L (136-145) Potassium Level 3.4 mmol/L (3.5-5.1) L Chloride Level 105 mmol/L (98-107) Carbon Dioxide Level 29 mmol/L (21-32) Anion Gap 9 (6-14) Blood Urea Nitrogen 22 mg/dL (7-20) H Creatinine 0.8 mg/dL (0.6-1.0) Estimated GFR (Cockcroft-Gault) 67.7 BUN/Creatinine Ratio 28 (6-20) H Glucose Level 169 mg/dL (70-99) H Lactic Acid Level 2.0 mmol/L (0.4-2.0) Calcium Level 9.4 mg/dL (8.5-10.1) Total Bilirubin 0.5 mg/dL (0.2-1.0) Aspartate Amino Transferase (AST) 21 U/L (15-37) Alanine Aminotransferase (ALT) 17 U/L (14-59) Alkaline Phosphatase 84 U/L (46-116) Troponin I Quantitative < 0.017 ng/mL (0.000-0.055) Total Protein 6.8 g/dL (6.4-8.2) Albumin 3.3 g/dL (3.4-5.0) L Albumin/Globulin Ratio 0.9 (1.0-1.7) L Laboratory Tests 04/05/19 18:15 Laboratory Tests 04/05/19 18:15 (CHUY GUTIÉRREZ APRN) EKG EKG Sinus Rhythm and no STEMI[] Interpretation Time: [address] Sargent (CHUY GUTIÉRREZ APRN) Radiology/Procedures Radiology/Procedures [] (CHUY GUTIÉRREZ APRN) Impressions: [facility] [address] [place] [address] IMAGING REPORT Signed PATIENT: JAIME AGUILAR ACCOUNT: [id number] : 1930 LOCATION: ER AGE: 88 SEX: F EXAM STATUS: PRE ER ORD. PHYSICIAN: CHUY GUTIÉRREZ APRN REASON: ams PROCEDURE: CT HEAD WO CONTRAST Exam: CT head INDICATION: Altered mental status TECHNIQUE: Sequential axial images through the head were obtained without the administration of IV contrast. Comparisons: 03/28/2019 FINDINGS: No focal parenchymal lesion or hemorrhage is identified. There is no midline shift or sulcal effacement. Hypodense area in the right posterior parietal lobe. Patchy hypodensity in the periventricular white matter which is similar when compared to the prior exam. Agosto-white distinction is preserved. The ventricular system is within normal limits without compression hydrocephalus. The basal cisterns are well maintained. The visualized portions of the paranasal sinuses and mastoid air cells are well-pneumatized. No acute fractures. IMPRESSION: Hypodense area in the posterior right parietal lobe, may represent an area of subacute ischemia. MRI is recommended for further evaluation. Exposure: One or more of the following in the visualized dose reduction techniques were utilized for this examination: 1. Automated exposure control 2. Adjustment of the MA and/or KV according to patient size Use of iterative of reconstructive technique Electronically signed by: Aleksandr Stanley MD (04/05/2019 5:36 PM) [facility] DICTATED and SIGNED BY: ALEKSANDR STANLEY MD DATE: 04/05/19 1736 [facility] [address] [place] [address] IMAGING REPORT Signed PATIENT: JAMIE AGUILAR ACCOUNT: [id number] : 1930 LOCATION: ER AGE: 88 SEX: F EXAM STATUS: PRE ER ORD. PHYSICIAN: CHUY GUTIÉRREZ APRN REASON: ams PROCEDURE: PORTABLE CHEST 1V PORTABLE CHEST 1V History: Altered mental status. Comparison: August 28, 2016 Findings: No consolidation or pleural effusion. Normal heart size. Hyperinflation. Impression: 1. Hyperinflation. 2. Otherwise, negative chest. Electronically signed by: Arnulfo Casas DO (04/05/2019 5:30 PM) [facility] DICTATED and SIGNED BY: ARNULFO CASAS DO DATE: 04/05/191729 [facility] [address] [place] [address] IMAGING REPORT Signed PATIENT: JAMIE AGUILAR ACCOUNT: [id number] : 1930 LOCATION: ER AGE: 88 SEX: F EXAM STATUS: REG ER ORD. PHYSICIAN: CHUY GUTIÉRREZ APRN REASON: swelling PROCEDURE: VENOUS LOWER EXTREMITY LEFT Exam: Left lower extremity venous duplex study INDICATION: Leg swelling TECHNIQUE: Using a combination of real-time ultrasound imaging and color-flow and pulse Doppler imaging techniques along with graded compression and augmentation, duplex evaluation of the deep venous systems of leftlower extremity was performed. Multiple images were obtained. Findings: Left posterior tibial veins not well visualized. Otherwise, There is no sonographic evidence for deep venous thrombosis involving the visualized deep venous structures of the left lower extremity. IMPRESSION: No acute DVT in the left lower extremity. Calf veins not well visualized. Electronically signed by: Aleksandr Stanley MD (04/05/2019 7:04 PM) [facility] DICTATED and SIGNED BY: ALEKSANDR STANLEY MD DATE: 04/05/191903 (CHUY GUTIÉRREZ APRN) Course & Med Decision Making Course & Med Decision Making Patient is a 88 year old female who presents with was brought in by EMS because daughter called and stated that the mother was acting more altered than usual and has not been taking her medications. Patient was diagnosed with a urinary tract infection on March 28, 2019 and was put on Macrobid. Daughter states s he's not been taking any of her medications. Patient states she has been taking her medications and she is unsure of why the daughter called EMS. Alert and oriented. Speaks in full clear sentences. Answers all questions appropriately. Patient had sex swelling to the left lower leg at 2+ is swelling to the right lower leg and 1+. Patient states that it's been there for a long time. Denies calf tenderness. Skin is pink warm and dry. Pedal pulses are strong and present. Cap refill less than 3 seconds. Lungs are clear in upper lobes but diminished in lower lobes. PERRLA. Patient denies dizziness, headache, abdominal pain, chest pain, shortness of air, nausea, vomiting, diarrhea, fever, numbness or tingling, visual changes, weakness. She denies any pain. She smells strongly of urine. Ct head shows: Hypodense area in the posterior right parietal lobe, may represent an area of subacute ischemia. MRI is recommended for further evaluation. I have consulted with Dr Sargent about this patient and the above findings. Daughter states that the patient has become more altered over the last week. Daughter states that the nursing facility of which the patient stays states that the patient has been wandering in and out of other peoples rooms and acting more confused than usual. I have spoken to the patient and to Dr. Priest for Admission. (CHUY GUTIÉRREZ APRN) Dragon Disclaimer Dragon Disclaimer This electronic medical record was generated, in whole or in part, using a voice recognition dictation system. (CHUY GUTIÉRREZ APRN) NIHSS Stroke Scale NIH Stroke Scale: NIH Stroke Scale Response (Comments) Value Level of Consciousness: 0 Alert/Responsive 0 LOC Questions: 0 Answers both correctly 0 LOC Commands: 0 Performs both tasks 0 Best Gaze: 0 Normal 0 Visual: 0 No visual loss 0 Facial Palsy: 0 Normal, symmetrical 0 Motor - Left Arm 0 No drift 0 Motor - Right Arm 0 No drift 0 Motor - Left Leg 0 No drift 0 Motor: Right Leg 0 No drift 0 Limb Ataxia: 0 Absent 0 Sensory: 0 No loss 0 Best Language: 0 Normal 0 Dysathria: 0 Normal 0 Extinction and Inattention: 0 Normal 0 Total 0 Departure Departure Impression: Primary Impression: Altered mental status Disposition: 09 ADMITTED INPATIENT Admitting Physician: WYATT (CHUY GUTIÉRREZ APRN) Condition: STABLE Referrals: UNKNOWN PCP NAME (PCP) Problem Qualifiers Primary Impression: Altered mental status Altered mental status type: unspecified Qualified Codes: R41.82 - Altered mental status, unspecified CHUY GUTIÉRREZ APRN Apr 05, 2019 17:32 DEWEY SARGENT MD Apr 06, 2019 09:39
--- NOTE | 2019-04-05 17:39 | RAD ---
Exam: CT head INDICATION: Altered mental status TECHNIQUE: Sequential axial images through the head were obtained without the administration of IV contrast. Comparisons: 03/28/2019 FINDINGS: No focal parenchymal lesion or hemorrhage is identified. There is no midline shift or sulcal effacement. Hypodense area in the right posterior parietal lobe. Patchy hypodensity in the periventricular white matter which is similar when compared to the prior exam. Agosto-white distinction is preserved. The ventricular system is within normal limits without compression hydrocephalus. The basal cisterns are well maintained. The visualized portions of the paranasal sinuses and mastoid air cells are well-pneumatized. No acute fractures. IMPRESSION: Hypodense area in the posterior right parietal lobe, may represent an area of subacute ischemia. MRI is recommended for further evaluation. Exposure: One or more of the following in the visualized dose reduction techniques were utilized for this examination: 1. Automated exposure control 2. Adjustment of the MA and/or KV according to patient size Use of iterative of reconstructive technique Electronically signed by: Aleksandr Triana MD (04/05/2019 5:36 PM) [facility]
[2019-04-05] MEDS ORDERED: IV NORMAL SALINE 1000ML BAG 1,000 ML IV ONE (17:45)
[2019-04-05 18:29] LABS: BASO # 0.1 x10^3/uL (0.0-0.2); BASO % 1 % (0-3); EOS # 0.2 x10^3/uL (0.0-0.7); EOS % 2 % (0-3); HEMATOCRIT 36.9 % (36.0-47.0); HEMOGLOBIN 12.4 g/dL (12.0-15.5); LYMPH # 3.1 x10^3/uL (1.0-4.8); LYMPH % 31 % (24-48); MEAN CORPUSCULAR HEMOGLOBIN 30 pg (25-35); MEAN CORPUSCULAR HGB CONC 34 g/dL (31-37); MEAN CORPUSCULAR VOLUME 88 fL (79-100); MONO # 1.1 x10^3/uL (0.0-1.1); MONO % 11 % (0-9); NEUT # 5.4 x10^3/uL (1.8-7.7); NEUT % 55 % (31-73); PLATELET COUNT 319 x10^3/uL (140-400); RED BLOOD COUNT 4.18 x10^6/uL (3.50-5.40); RED CELL DISTRIBUTION WIDTH 13.9 % (11.5-14.5)
[2019-04-05 18:39] LABS: CALCIUM 9.4 mg/dL (8.5-10.1); CREATININE 0.8 mg/dL (0.6-1.0); GFR 67.7; POTASSIUM 3.4 mmol/L (3.5-5.1)
[2019-04-05 18:46] LABS: ALBUMIN 3.3 g/dL (3.4-5.0); ALBUMIN/GLOBULIN RATIO 0.9 (1.0-1.7); TOTAL BILIRUBIN 0.5 mg/dL (0.2-1.0); TOTAL PROTEIN 6.8 g/dL (6.4-8.2)
--- NOTE | 2019-04-05 19:07 | RAD ---
Exam: Left lower extremity venous duplex study INDICATION: Leg swelling TECHNIQUE: Using a combination of real-time ultrasound imaging and color-flow and pulse Doppler imaging techniques along with graded compression and augmentation, duplex evaluation of the deep venous systems of leftlower extremity was performed. Multiple images were obtained. Findings: Left posterior tibial veins not well visualized. Otherwise, There is no sonographic evidence for deep venous thrombosis involving the visualized deep venous structures of the left lower extremity. IMPRESSION: No acute DVT in the left lower extremity. Calf veins not well visualized. Electronically signed by: Aleksandr Triana MD (04/05/2019 7:04 PM) [facility]
[2019-04-05] MEDS ORDERED: ONDANSETRON PF 4 MG/2 ML VIAL. IV PRN (19:15)
[2019-04-05] MEDS ORDERED: fentaNYL PF VIAL 100 MCG/2 ML VIAL IV PRN (19:15)
[2019-04-05] MEDS ORDERED: ACETAMINOPHEN 325 MG TABLET. PO PRN (19:15)
[2019-04-05 19:20] LABS: BILIRUBIN,URINE NEGATIVE (NEG); CLARITY,URINE CLEAR; COLOR,URINE YELLOW; NITRITE,URINE NEGATIVE (NEG); PH,URINE 7.5; PROTEIN,URINE NEGATIVE (NEG-TRACE)
[2019-04-05 19:32] LABS: HYALINE CASTS, URINE MODERATE /HPF; SQUAMOUS EPITHELIAL CELL,UR MANY /LPF
[2019-04-05 19:33] LABS: BACTERIA,URINE FEW /HPF (0-FEW); WBC,URINE TNTC /HPF (0-4)
--- NOTE | 2019-04-05 20:08 | HP ---
ADMIT DATE: 04/05/2019 CHIEF COMPLAINT: Mental status change, weakness. HISTORY OF PRESENT ILLNESS: The patient is a pleasant elderly female who presented with weakness and mental status change. Her daughter states she is not acting herself. She was brought in by ambulance. We checked a urinalysis. She does have a UTI. Her CAT scan of the brain is also a little abnormal. They recommended an MRI. I discussed the case with ER physician. We are going to admit the patient and consult Neurology. PAST MEDICAL HISTORY: Arthritis, diabetes, fibromyalgia, hypertension, neuropathy, hysterectomy, tonsillectomy, cataracts, colon abscess and resection. ALLERGIES: TETRACYCLINE, AMITRIPTYLINE, CODEINE, COFFEE, ERYTHROMYCIN, MEPERIDINE, MORPHINE, PREDNISONE AND SUCRALOSE. FAMILY HISTORY: Coronary artery disease. SOCIAL HISTORY: I think she lives with her daughter. She does not drink, smoke or take drugs. MEDICATIONS: Reviewed, please refer to the MRAD. REVIEW OF SYSTEMS: Unable to obtain. The patient is too confused. PHYSICAL EXAMINATION: VITALS: Within normal limits and are stable. GENERAL: No apparent distress. Alert and oriented. HEENT: Head is normocephalic, atraumatic, pupils were equally round and reactive to light and accommodation. NECK: Supple, no JVD, no thyromegaly was noted. LUNGS: Clear to auscultation in all lung english without rhonchi or wheezing. HEART: RRR, S1, S2 present. Peripheral pulses intact, no obvious murmurs were noted. ABDOMEN: Soft, nontender. Positive bowel sounds no organomegaly, normal bowel sounds. EXTREMITIES: The feet are very dirty, especially the left foot has got fecal debris on it. She has a massive bunion, the biggest I have ever seen. The toes are scrunched together also on the left. NEUROLOGIC: She is very confused. PSYCHIATRIC: Normal affect, normal mood. Stable. SKIN: No ulcerations or rashes, good skin turgor, no jaundice. VASCULAR: Good capillary refill, neurovascular bundle appears to be intact. LABORATORY DATA: White count is 10. Electrolytes, potassium is low at 3.4, BUN is high at 22. Urinalysis shows a large amount of leukocyte esterase. CT of the head shows a hypodense area in the posterior right parietal lobe, may represent a subacute stroke. ASSESSMENT AND PLAN: Mental status change, urinary tract infection, abnormal CAT scan, hypokalemia, foot wounds. The patient is being admitted. We will start IV antibiotics, IV fluids. Consult Neurology. Home meds, PT, OT, frequent labs. DVT prophylaxis. Full code. PROGNOSIS: Guarded. BIJUL Les MALDONADO DO DR: AARON/todd JOB#: [id number] / [id number]
[2019-04-05 21:45] VITALS: BP 186/75
[2019-04-05 23:15] VITALS: BP 185/61
[2019-04-06 02:51] VITALS: BP 146/70
[2019-04-06] MEDS ORDERED: OMEG-141 PO (04:54)
[2019-04-06] MEDS ORDERED: GABA300C18 PO (04:54)
[2019-04-06] MEDS ORDERED: MAGN400C PO (04:54)
[2019-04-06] MEDS ORDERED: INSU100V6 SQ (04:54)
[2019-04-06] MEDS ORDERED: INSU100I13 SQ (04:54)
[2019-04-06] MEDS ORDERED: FOLI1CAP10 PO (04:54)
[2019-04-06] MEDS ORDERED: BENA40TA3 PO (04:54)
[2019-04-06] MEDS ORDERED: ASPI325T8 PO (04:54)
[2019-04-06 07:00] VITALS: BP 154/71
[2019-04-06] MEDS: FOLIC/VIT B COMP W-C (RENAL) TABLET. PO SCH (08:30)
[2019-04-06] MEDS: GABAPENTIN 300 MG CAPSULE. PO SCH ×2 (08:30→22:05)
[2019-04-06] MEDS: MAGNESIUM OXIDE 400 MG TABLET PO SCH (08:30)
[2019-04-06] MEDS: OMEGA-3 FATTY ACIDS/FISH OIL 1,000 MG CAPSULE. PO SCH (08:30)
[2019-04-06] MEDS: LISINOPRIL 20 MG TABLET PO SCH (08:32)
[2019-04-06] MEDS: INSULIN LISPRO 300 UNITS/3 ML VIAL. SQ SCH ×3 (08:43→17:00)
[2019-04-06] MEDS ORDERED: ASPIRIN 325 MG TABLET PO SCH ×2 (09:00→21:00)
--- NOTE | 2019-04-06 09:18 | PDOC ---
PROGRESS NOTES History of Present Illness History of Present Illness ASSESSMENT AND PLAN: Mental status change, urinary tract infection, abnormal CAT scan head , Hypodense area in the right posterior parietal lobe. Patchy hypodensity in the periventricular white matter which is similar when compared to the prior exam. Agosto-white distinction is preserved. The ventricular system is within normal limits without compression hydrocephalus. The basal cisterns are well maintained. hypokalemia, foot wounds. admitted. IV antibiotics, IV fluid support. Consult Neurology. Home meds, PT, OT, frequent labs. DVT prophylaxis. Full code. 37 min pt exam, chart review, > 50% of time spent with exam, chart review, pt care coordination Vitals Vitals Vital Signs Date Time Temp Pulse Resp B/P (MAP) Pulse Ox O2 Delivery O2 Flow Rate FiO2 04/06/19 08:32 80 154/71 04/06/19 07:00 98.4 18 96 Room Air 98.4 Physical Exam Physical Exam VITALS: Within normal limits and are stable. GENERAL: No apparent distress. Alert and oriented. HEENT: Head is normocephalic, atraumatic, pupils were equally round and reactive to light and accommodation. NECK: Supple, no JVD, no thyromegaly was noted. LUNGS: Clear to auscultation in all lung english without rhonchi or wheezing. HEART: RRR, S1, S2 present. Peripheral pulses intact, no obvious murmurs were noted. ABDOMEN: Soft, nontender. Positive bowel sounds no organomegaly, normal bowel sounds. EXTREMITIES: feet fecal bunion, the biggest I have ever seen. The toes are pressured together also on the left. NEUROLOGIC: very confused. PSYCHIATRIC: Normal affect, normal mood. Stable. SKIN: No ulcerations or rashes, good skin turgor, no jaundice. VASCULAR: Good capillary refill, neurovascular bundle appears to be intact. Labs LABS Exam: CT head INDICATION: Altered mental status TECHNIQUE: Sequential axial images through the head were obtained without the administration of IV contrast. Comparisons: 03/28/2019 FINDINGS: No focal parenchymal lesion or hemorrhage is identified. There is no midline shift or sulcal effacement. Hypodense area in the right posterior parietal lobe. Patchy hypodensity in the periventricular white matter which is similar when compared to the prior exam. Agosto-white distinction is preserved. The ventricular system is within normal limits without compression hydrocephalus. The basal cisterns are well maintained. The visualized portions of the paranasal sinuses and mastoid air cells are well-pneumatized. No acute fractures. IMPRESSION: Hypodense area in the posterior right parietal lobe, may represent an area of subacute ischemia. MRI is recommended for further evaluation. Exposure: One or more of the following in the visualized dose reduction techniques were utilized for this examination: 1. Automated exposure control 2. Adjustment of the MA and/or KV according to patient size Use of iterative of reconstructive technique Electronically signed by: Aleksandr Stanley MD (04/05/2019 5:36 PM) [facility] DICTATED and SIGNED BY: ALEKSANDR STANLEY MD DATE: 04/05/19 1736 Laboratory Tests Test 04/05/19 18:15 04/05/19 19:08 04/05/19 21:45 04/05/19 22:30 White Blood Count 10.0 x10^3/uL (4.0-11.0) Red Blood Count 4.18 x10^6/uL (3.50-5.40) Hemoglobin 12.4 g/dL (12.0-15.5) Hematocrit 36.9 % (36.0-47.0) Mean Corpuscular Volume 88 fL (79-100) Mean Corpuscular Hemoglobin 30 pg (25-35) Mean Corpuscular Hemoglobin Concent 34 g/dL (31-37) Red Cell Distribution Width 13.9 % (11.5-14.5) Platelet Count 319 x10^3/uL (140-400) Neutrophils (%) (Auto) 55 % (31-73) Lymphocytes (%) (Auto) 31 % (24-48) Monocytes (%) (Auto) 11 % (0-9) Eosinophils (%) (Auto) 2 % (0-3) Basophils (%) (Auto) 1 % (0-3) Neutrophils # (Auto) 5.4 x10^3/uL (1.8-7.7) Lymphocytes # (Auto) 3.1 x10^3/uL (1.0-4.8) Monocytes # (Auto) 1.1 x10^3/uL (0.0-1.1) Eosinophils # (Auto) 0.2 x10^3/uL (0.0-0.7) Basophils # (Auto) 0.1 x10^3/uL (0.0-0.2) Sodium Level 143 mmol/L (136-145) Potassium Level 3.4 mmol/L (3.5-5.1) Chloride Level 105 mmol/L (98-107) Carbon Dioxide Level 29 mmol/L (21-32) Anion Gap 9 (6-14) Blood Urea Nitrogen 22 mg/dL (7-20) Creatinine 0.8 mg/dL (0.6-1.0) Estimated GFR (Cockcroft-Gault) 67.7 BUN/Creatinine Ratio 28 (6-20) Glucose Level 169 mg/dL (70-99) Lactic Acid Level 2.0 mmol/L (0.4-2.0) 0.8 mmol/L (0.4-2.0) Calcium Level 9.4 mg/dL (8.5-10.1) Total Bilirubin 0.5 mg/dL (0.2-1.0) Aspartate Amino Transf (AST/SGOT) 21 U/L (15-37) Alanine Aminotransferase (ALT/SGPT) 17 U/L (14-59) Alkaline Phosphatase 84 U/L (46-116) Troponin I Quantitative < 0.017 ng/mL (0.000-0.055) < 0.017 ng/mL (0.000-0.055) Total Protein 6.8 g/dL (6.4-8.2) Albumin 3.3 g/dL (3.4-5.0) Albumin/Globulin Ratio 0.9 (1.0-1.7) Urine Collection Type Unknown Urine Color Yellow Urine Clarity Clear Urine pH 7.5 Urine Specific [place] 1.015 Urine Protein Negative mg/dL (NEG-TRACE) Urine Glucose (UA) 100 mg/dL (NEG) Urine Ketones (Stick) Trace mg/dL (NEG) Urine Blood Trace (NEG) Urine Nitrite Negative (NEG) Urine Bilirubin Negative (NEG) Urine Urobilinogen Dipstick 1.0 mg/dL (0.2 mg/dL) Urine Leukocyte Esterase Large (NEG) Urine RBC 3-5 /HPF (0-2) Urine WBC Tntc /HPF (0-4) Urine Squamous Epithelial Cells Many /LPF Urine Bacteria Few /HPF (0-FEW) Urine Hyaline Casts Moderate /HPF Urine Mucus Marked /LPF Glucose (Fingerstick) 155 mg/dL (70-99) Test 04/06/19 07:15 Glucose (Fingerstick) 182 mg/dL (70-99) Assessment and Plan Assessmemt and Plan Problems Medical Problems: (1) Altered mental status Status: Acute Comment Review of Relevant I have reviewed the following items nathaniel (where applicable) has been applied. Labs Laboratory Tests Test 04/05/19 18:15 04/05/19 19:08 04/05/19 21:45 04/05/19 22:30 White Blood Count 10.0 x10^3/uL (4.0-11.0) Red Blood Count 4.18 x10^6/uL (3.50-5.40) Hemoglobin 12.4 g/dL (12.0-15.5) Hematocrit 36.9 % (36.0-47.0) Mean Corpuscular Volume 88 fL (79-100) Mean Corpuscular Hemoglobin 30 pg (25-35) Mean Corpuscular Hemoglobin Concent 34 g/dL (31-37) Red Cell Distribution Width 13.9 % (11.5-14.5) Platelet Count 319 x10^3/uL (140-400) Neutrophils (%) (Auto) 55 % (31-73) Lymphocytes (%) (Auto) 31 % (24-48) Monocytes (%) (Auto) 11 % (0-9) Eosinophils (%) (Auto) 2 % (0-3) Basophils (%) (Auto) 1 % (0-3) Neutrophils # (Auto) 5.4 x10^3/uL (1.8-7.7) Lymphocytes # (Auto) 3.1 x10^3/uL (1.0-4.8) Monocytes # (Auto) 1.1 x10^3/uL (0.0-1.1) Eosinophils # (Auto) 0.2 x10^3/uL (0.0-0.7) Basophils # (Auto) 0.1 x10^3/uL (0.0-0.2) Sodium Level 143 mmol/L (136-145) Potassium Level 3.4 mmol/L (3.5-5.1) Chloride Level 105 mmol/L (98-107) Carbon Dioxide Level 29 mmol/L (21-32) Anion Gap 9 (6-14) Blood Urea Nitrogen 22 mg/dL (7-20) Creatinine 0.8 mg/dL (0.6-1.0) Estimated GFR (Cockcroft-Gault) 67.7 BUN/Creatinine Ratio 28 (6-20) Glucose Level 169 mg/dL (70-99) Lactic Acid Level 2.0 mmol/L (0.4-2.0) 0.8 mmol/L (0.4-2.0) Calcium Level 9.4 mg/dL (8.5-10.1) Total Bilirubin 0.5 mg/dL (0.2-1.0) Aspartate Amino Transf (AST/SGOT) 21 U/L (15-37) Alanine Aminotransferase (ALT/SGPT) 17 U/L (14-59) Alkaline Phosphatase 84 U/L (46-116) Troponin I Quantitative < 0.017 ng/mL (0.000-0.055) < 0.017 ng/mL (0.000-0.055) Total Protein 6.8 g/dL (6.4-8.2) Albumin 3.3 g/dL (3.4-5.0) Albumin/Globulin Ratio 0.9 (1.0-1.7) Urine Collection Type Unknown Urine Color Yellow Urine Clarity Clear Urine pH 7.5 Urine Specific [place] 1.015 Urine Protein Negative mg/dL (NEG-TRACE) Urine Glucose (UA) 100 mg/dL (NEG) Urine Ketones (Stick) Trace mg/dL (NEG) Urine Blood Trace (NEG) Urine Nitrite Negative (NEG) Urine Bilirubin Negative (NEG) Urine Urobilinogen Dipstick 1.0 mg/dL (0.2 mg/dL) Urine Leukocyte Esterase Large (NEG) Urine RBC 3-5 /HPF (0-2) Urine WBC Tntc /HPF (0-4) Urine Squamous Epithelial Cells Many /LPF Urine Bacteria Few /HPF (0-FEW) Urine Hyaline Casts Moderate /HPF Urine Mucus Marked /LPF Glucose (Fingerstick) 155 mg/dL (70-99) Test 04/06/19 07:15 Glucose (Fingerstick) 182 mg/dL (70-99) Laboratory Tests Test 04/05/19 18:15 04/05/19 19:08 04/05/19 21:45 10/11/19 22:30 White Blood Count 10.0 x10^3/uL (4.0-11.0) Red Blood Count 4.18 x10^6/uL (3.50-5.40) Hemoglobin 12.4 g/dL (12.0-15.5) Hematocrit 36.9 % (36.0-47.0) Mean Corpuscular Volume 88 fL (79-100) Mean Corpuscular Hemoglobin 30 pg (25-35) Mean Corpuscular Hemoglobin Concent 34 g/dL (31-37) Red Cell Distribution Width 13.9 % (11.5-14.5) Platelet Count 319 x10^3/uL (140-400) Neutrophils (%) (Auto) 55 % (31-73) Lymphocytes (%) (Auto) 31 % (24-48) Monocytes (%) (Auto) 11 % (0-9) Eosinophils (%) (Auto) 2 % (0-3) Basophils (%) (Auto) 1 % (0-3) Neutrophils # (Auto) 5.4 x10^3/uL (1.8-7.7) Lymphocytes # (Auto) 3.1 x10^3/uL (1.0-4.8) Monocytes # (Auto) 1.1 x10^3/uL (0.0-1.1) Eosinophils # (Auto) 0.2 x10^3/uL (0.0-0.7) Basophils # (Auto) 0.1 x10^3/uL (0.0-0.2) Sodium Level 143 mmol/L (136-145) Potassium Level 3.4 mmol/L (3.5-5.1) Chloride Level 105 mmol/L (98-107) Carbon Dioxide Level 29 mmol/L (21-32) Anion Gap 9 (6-14) Blood Urea Nitrogen 22 mg/dL (7-20) Creatinine 0.8 mg/dL (0.6-1.0) Estimated GFR (Cockcroft-Gault) 67.7 BUN/Creatinine Ratio 28 (6-20) Glucose Level 169 mg/dL (70-99) Lactic Acid Level 2.0 mmol/L (0.4-2.0) 0.8 mmol/L (0.4-2.0) Calcium Level 9.4 mg/dL (8.5-10.1) Total Bilirubin 0.5 mg/dL (0.2-1.0) Aspartate Amino Transf (AST/SGOT) 21 U/L (15-37) Alanine Aminotransferase (ALT/SGPT) 17 U/L (14-59) Alkaline Phosphatase 84 U/L (46-116) Troponin I Quantitative < 0.017 ng/mL (0.000-0.055) < 0.017 ng/mL (0.000-0.055) Total Protein 6.8 g/dL (6.4-8.2) Albumin 3.3 g/dL (3.4-5.0) Albumin/Globulin Ratio 0.9 (1.0-1.7) Urine Collection Type Unknown Urine Color Yellow Urine Clarity Clear Urine pH 7.5 Urine Specific [place] 1.015 Urine Protein Negative mg/dL (NEG-TRACE) Urine Glucose (UA) 100 mg/dL (NEG) Urine Ketones (Stick) Trace mg/dL (NEG) Urine Blood Trace (NEG) Urine Nitrite Negative (NEG) Urine Bilirubin Negative (NEG) Urine Urobilinogen Dipstick 1.0 mg/dL (0.2 mg/dL) Urine Leukocyte Esterase Large (NEG) Urine RBC 3-5 /HPF (0-2) Urine WBC Tntc /HPF (0-4) Urine Squamous Epithelial Cells Many /LPF Urine Bacteria Few /HPF (0-FEW) Urine Hyaline Casts Moderate /HPF Urine Mucus Marked /LPF Glucose (Fingerstick) 155 mg/dL (70-99) Test 04/06/19 07:15 Glucose (Fingerstick) 182 mg/dL (70-99) Medications Current Medications Sodium Chloride 1,000 ml @ 1,000 mls/hr 1X ONCE IV Last administered on 04/05/19at 18:20; Start 04/05/19 at 17:45; Stop 04/05/19 at 18:44; Status DC Ondansetron HCl (Zofran) 4 mg PRN Q8HRS PRN IV NAUSEA/VOMITING; Start 04/05/19 at 19:15; Stop 04/06/19 at 19:14 Fentanyl Citrate (Fentanyl 2ml Vial) 50 mcg PRN Q1HR PRN IV PAIN; Start 04/05/19 at 19:15; Stop 04/06/19 at 19:14; Status UNV Acetaminophen (Tylenol) 650 mg PRN Q4HRS PRN PO FEVER; Start 04/05/19 at 19:15; Stop 04/06/19 at 19:14 Aspirin (Abena Aspirin) 325 mg DAILY PO ; Start 04/06/19 at 09:00 Gabapentin (Neurontin) 300 mg BID PO Last administered on 04/06/19 08:30; Start 04/06/19 at 09:00 Insulin Human Lispro (HumaLOG) 5 units TIDWMEALS SQ Last administered on 04/06/19at 08:43; Start 04/06/19 at 08:00 Lisinopril (Prinivil) 40 mg DAILY PO Last administered on 04/06/19at 08:32; Start 04/06/19 at 09:00 Vitamin B Complex/ Vitamin C (Lizzette-Jose Carlos) 1 tab DAILY PO Last administered on 04/06/19 08:30; Start 04/06/19 at 09:00 Insulin Glargine (Lantus Syringe) 10 unit QHS SQ ; Start 04/06/19 at 21:00 Magnesium Oxide (Magnesium Oxide) 400 mg DAILY PO Last administered on 04/06/19at 08:30; Start 04/06/19 at 09:00 Fish Oil (Fish Oil) 1,000 mg DAILY PO Last administered on 04/06/19 08:30; Start 04/06/19 at 09:00 Active Scripts Active [mac] 25 mg/ 5 ml 20 Ml PO 7 Days Macrobid 100 Mg Capsule (Nitrofurantoin Monohyd/M-Cryst) 100 Mg Capsule 1 Cap PO BID Reported Lantus Solostar (Insulin Glargine,Hum.rec.anlog) 100 Unit/1 Ml Insuln.pen 10 Unit SQ QHS Humalog (Insulin Lispro) 100 Unit/1 Ml Vial 5 Unit SQ TIDWMEALS Benazepril Hcl 40 Mg Tablet 40 Mg PO DAILY Fish Oil [place]-3 Softgel ([place]-3S/Dha/Epa/Fish Oil) 1 Each Capsule. 1 Each PO DAILY Renal Caps Softgel (Folic Acid/Vitamin B Comp W-C) 1 Mg Capsule 1 Mg PO DAILY Aspirin 325 Mg Tablet 325 Mg PO DAILY Magnesium (Magnesium Oxide) 400 Mg Capsule 500 Mg PO DAILY Gabapentin (Gabapentin) 300 Mg Capsule 300 Mg PO BID Vitals/I & O Vital Sign - Last 24 Hours 04/05/19 04/05/19 04/05/19 04/05/19 17:05 17:35 18:03 19:03 Temp 98.3 98.3 Pulse 92 86 92 86 Resp 16 20 24 13 B/P (MAP) 200/92 (128) Pulse Ox 100 100 100 100 O2 Delivery Room Air 04/05/19 04/05/19 04/05/19 04/05/19 19:33 21:45 23:00 23:15 Temp 97.9 98.4 97.9 98.4 Pulse 85 81 79 Resp 24 18 18 B/P (MAP) 186/75 (112) 185/61 (102) Pulse Ox 99 100 97 O2 Delivery Room Air Room Air Room Air 04/06/19 04/06/19 04/06/19 02:51 07:00 08:32 Temp 98.2 98.4 98.2 98.4 Pulse 83 80 80 Resp 18 18 B/P (MAP) 146/70 (95) 154/71 (98) 154/71 Pulse Ox 94 96 O2 Delivery Room Air Room Air Intake and Output 04/05/19 04/05/19 04/06/19 15:00 23:00 07:00 Intake Total 0 ml Balance 0 ml MARCY STARKEY MD Apr 06, 2019 09:18
[2019-04-06 11:00] VITALS: BP 130/55
--- NOTE | 2019-04-06 13:11 | PDOC2 ---
NEUROLOGY CONSULT Date of Admission Date of Admission DATE: 04/06/19 TIME: 13:07 Reason for Consult Reason for Consult: Altered mental status, abnormal head CT Referring Physician Referring Physician: Dr. Priest Source Source: Chart review, Patient History of Present Illness History of Present Illness The patient is an 88-year-old right-handed female whose daughter brought her in for altered mental status. She has been found to have an abnormal head CT and urinary tract infection. She is feeling better today. At baseline, the patient lives on her own and get some help from the family. She gets around with a walker or a wheelchair because of her neuropathy. There is no history of stroke, seizure, or head injury. Past Medical History Cardiovascular: HTN CENTRAL NERVOUS SYSTEM: Periperal neuropathy GI: Constipation Musculoskeletal: Osteoarthritis Renal/: UTI Endocrine: Diabetes Past Surgical History Past Surgical History: Cataract Removal, Tonsillectomy, Hysterectomy Family History Family History: No pertinent hx Social History Social History , no alcohol or tobacco Current Medications Current Medications Current Medications Sodium Chloride 1,000 ml @ 1,000 mls/hr 1X ONCE IV Last administered on 04/05/19at 18:20; Start 04/05/19 at 17:45; Stop 04/05/19 at 18:44; Status DC Ondansetron HCl (Zofran) 4 mg PRN Q8HRS PRN IV NAUSEA/VOMITING; Start 04/05/19 at 19:15; Stop 04/06/19 at 19:14 Fentanyl Citrate (Fentanyl 2ml Vial) 50 mcg PRN Q1HR PRN IV PAIN; Start 04/05/19 at 19:15; Stop 04/06/19 at 19:14; Status UNV Acetaminophen (Tylenol) 650 mg PRN Q4HRS PRN PO FEVER; Start 04/05/19 at 19:15; Stop 04/06/19 at 19:14 Aspirin (Abena Aspirin) 325 mg DAILY PO ; Start 04/06/19 at 09:00; Stop 04/06/19 at 11:02; Status DC Gabapentin (Neurontin) 300 mg BID PO Last administered on 04/06/19at 08:30; Start 04/06/19 at 09:00 Insulin Human Lispro (HumaLOG) 5 units TIDWMEALS SQ Last administered on 04/06/19at 12:51; Start 04/06/19 at 08:00 Lisinopril (Prinivil) 40 mg DAILY PO Last administered on 04/06/19at 08:32; Start 04/06/19 at 09:00 Vitamin B Complex/ Vitamin C (Lizzette-Jose Carlos) 1 tab DAILY PO Last administered on 04/06/19at 08:30; Start 04/06/19 at 09:00 Insulin Glargine (Lantus Syringe) 10 unit QHS SQ ; Start 04/06/19 at 21:00 Magnesium Oxide (Magnesium Oxide) 400 mg DAILY PO Last administered on 04/06/19at 08:30; Start 04/06/19 at 09:00 Fish Oil (Fish Oil) 1,000 mg DAILY PO Last administered on 04/06/19at 08:30; Start 04/06/19 at 09:00 Aspirin (Abena Aspirin) 325 mg QHS PO ; Start 04/06/19 at 21:00 Active Scripts Active [mac] 25 mg/ 5 ml 20 Ml PO 7 Days Macrobid 100 Mg Capsule (Nitrofurantoin Monohyd/M-Cryst) 100 Mg Capsule 1 Cap PO BID Reported Lantus Solostar (Insulin Glargine,Hum.rec.anlog) 100 Unit/1 Ml Insuln.pen 10 Uni t SQ QHS Humalog (Insulin Lispro) 100 Unit/1 Ml Vial 5 Unit SQ TIDWMEALS Benazepril Hcl 40 Mg Tablet 40 Mg PO DAILY Fish Oil [place]on-3 Softgel ([place]-3S/Dha/Epa/Fish Oil) 1 Each Capsule.dr 1 Each PO DAILY Renal Caps Softgel (Folic Acid/Vitamin B Comp W-C) 1 Mg Capsule 1 Mg PO DAILY Aspirin 325 Mg Tablet 325 Mg PO DAILY Magnesium (Magnesium Oxide) 400 Mg Capsule 500 Mg PO DAILY Gabapentin (Gabapentin) 300 Mg Capsule 300 Mg PO BID Allergies Allergies: Coded Allergies: Tetracyclines (Verified Allergy, Intermediate, 03/27/16) amitriptyline (Verified Allergy, Intermediate, 03/27/16) codeine (Verified Allergy, Intermediate, 03/27/16) coffee (Coffea arabica) (Verified Allergy, Intermediate, 03/27/16) erythromycin base (Verified Allergy, Intermediate, 03/27/16) meperidine (Verified Allergy, Intermediate, 03/27/16) morphine (Verified Allergy, Intermediate, 03/27/16) prednisone (Verified Allergy, Intermediate, 03/27/16) sucralose (Verified Allergy, Intermediate, 03/27/16) ROS Review of System Negative for fever, chills, weight loss, shortness of breath, chest pain, indigestion, hematochezia, melena, and dysuria. Full 14-point review of systems is negative. Physical Exam Physical Examination General: Well-developed, well-nourished white female in no acute distress HEENT: Normocephalic andatraumatic.Temporal arteriespulsatile and nontender. Neck: Supple without bruit, no meningismus Musculoskeletal: Stability:see neurologic. Gait exam:see neurologic. Tone:see neurologic.Strength:see neurologic. Neurological: Mental Status:intact, orientation, memory, attention span/concentration, language, fund of knowledge normal. Cranial Nerves:Pupils equal and reactive to light, extraocular movements areintact, visual english are full to confrontation. Facial sensation is normal. There is no facial asymmetry. Vestibulo-ocular reflex is intact. Palate elevates and tongue protrudes in midline. All other cranial related problems are negative except as mentioned before.Reflexes:1+ and symmetric with flexor plantar responses. Motor:5/5 strength with normal tone and bulk. Coordination:Finger-nose finger and buso-ae-verm testing are normal. Rapid alternating movements and fine finger movements are intact. Gait:not tested. Sensory:stocking loss Vitals VITALS Vital Signs Date Time Temp Pulse Resp B/P (MAP) Pulse Ox O2 Delivery O2 Flow Rate FiO2 04/06/19 11:00 98.3 74 18 130/55 (80) 95 Room Air 98.3 Labs Labs Laboratory Tests Test 04/05/19 18:15 04/05/19 19:08 04/05/19 21:45 04/05/19 22:30 White Blood Count 10.0 x10^3/uL (4.0-11.0) Red Blood Count 4.18 x10^6/uL (3.50-5.40) Hemoglobin 12.4 g/dL (12.0-15.5) Hematocrit 36.9 % (36.0-47.0) Mean Corpuscular Volume 88 fL (79-100) Mean Corpuscular Hemoglobin 30 pg (25-35) Mean Corpuscular Hemoglobin Concent 34 g/dL (31-37) Red Cell Distribution Width 13.9 % (11.5-14.5) Platelet Count 319 x10^3/uL (140-400) Neutrophils (%) (Auto) 55 % (31-73) Lymphocytes (%) (Auto) 31 % (24-48) Monocytes (%) (Auto) 11 % (0-9) Eosinophils (%) (Auto) 2 % (0-3) Basophils (%) (Auto) 1 % (0-3) Neutrophils # (Auto) 5.4 x10^3/uL (1.8-7.7) Lymphocytes # (Auto) 3.1 x10^3/uL (1.0-4.8) Monocytes # (Auto) 1.1 x10^3/uL (0.0-1.1) Eosinophils # (Auto) 0.2 x10^3/uL (0.0-0.7) Basophils # (Auto) 0.1 x10^3/uL (0.0-0.2) Sodium Level 143 mmol/L (136-145) Potassium Level 3.4 mmol/L (3.5-5.1) Chloride Level 105 mmol/L (98-107) Carbon Dioxide Level 29 mmol/L (21-32) Anion Gap 9 (6-14) Blood Urea Nitrogen 22 mg/dL (7-20) Creatinine 0.8 mg/dL (0.6-1.0) Estimated GFR (Cockcroft-Gault) 67.7 BUN/Creatinine Ratio 28 (6-20) Glucose Level 169 mg/dL (70-99) Lactic Acid Level 2.0 mmol/L (0.4-2.0) 0.8 mmol/L (0.4-2.0) Calcium Level 9.4 mg/dL (8.5-10.1) Total Bilirubin 0.5 mg/dL (0.2-1.0) Aspartate Amino Transf (AST/SGOT) 21 U/L (15-37) Alanine Aminotransferase (ALT/SGPT) 17 U/L (14-59) Alkaline Phosphatase 84 U/L (46-116) Troponin I Quantitative < 0.017 ng/mL (0.000-0.055) < 0.017 ng/mL (0.000-0.055) Total Protein 6.8 g/dL (6.4-8.2) Albumin 3.3 g/dL (3.4-5.0) Albumin/Globulin Ratio 0.9 (1.0-1.7) Urine Collection Type Unknown Urine Color Yellow Urine Clarity Clear Urine pH 7.5 Urine Specific [place] 1.015 Urine Protein Negative mg/dL (NEG-TRACE) Urine Glucose (UA) 100 mg/dL (NEG) Urine Ketones (Stick) Trace mg/dL (NEG) Urine Blood Trace (NEG) Urine Nitrite Negative (NEG) Urine Bilirubin Negative (NEG) Urine Urobilinogen Dipstick 1.0 mg/dL (0.2 mg/dL) Urine Leukocyte Esterase Large (NEG) Urine RBC 3-5 /HPF (0-2) Urine WBC Tntc /HPF (0-4) Urine Squamous Epithelial Cells Many /LPF Urine Bacteria Few /HPF (0-FEW) Urine Hyaline Casts Moderate /HPF Urine Mucus Marked /LPF Glucose (Fingerstick) 155 mg/dL (70-99) Test 04/06/19 07:15 04/06/19 11:42 Glucose (Fingerstick) 182 mg/dL (70-99) 137 mg/dL (70-99) Laboratory Tests Test 04/05/19 18:15 04/05/19 19:08 04/05/19 21:45 04/05/19 22:30 White Blood Count 10.0 x10^3/uL (4.0-11.0) Red Blood Count 4.18 x10^6/uL (3.50-5.40) Hemoglobin 12.4 g/dL (12.0-15.5) Hematocrit 36.9 % (36.0-47.0) Mean Corpuscular Volume 88 fL (79-100) Mean Corpuscular Hemoglobin 30 pg (25-35) Mean Corpuscular Hemoglobin Concent 34 g/dL (31-37) Red Cell Distribution Width 13.9 % (11.5-14.5) Platelet Count 319 x10^3/uL (140-400) Neutrophils (%) (Auto) 55 % (31-73) Lymphocytes (%) (Auto) 31 % (24-48) Monocytes (%) (Auto) 11 % (0-9) Eosinophils (%) (Auto) 2 % (0-3) Basophils (%) (Auto) 1 % (0-3) Neutrophils # (Auto) 5.4 x10^3/uL (1.8-7.7) Lymphocytes # (Auto) 3.1 x10^3/uL (1.0-4.8) Monocytes # (Auto) 1.1 x10^3/uL (0.0-1.1) Eosinophils # (Auto) 0.2 x10^3/uL (0.0-0.7) Basophils # (Auto) 0.1 x10^3/uL (0.0-0.2) Sodium Level 143 mmol/L (136-145) Potassium Level 3.4 mmol/L (3.5-5.1) Chloride Level 105 mmol/L (98-107) Carbon Dioxide Level 29 mmol/L (21-32) Anion Gap 9 (6-14) Blood Urea Nitrogen 22 mg/dL (7-20) Creatinine 0.8 mg/dL (0.6-1.0) Estimated GFR (Cockcroft-Gault) 67.7 BUN/Creatinine Ratio 28 (6-20) Glucose Level 169 mg/dL (70-99) Lactic Acid Level 2.0 mmol/L (0.4-2.0) 0.8 mmol/L (0.4-2.0) Calcium Level 9.4 mg/dL (8.5-10.1) Total Bilirubin 0.5 mg/dL (0.2-1.0) Aspartate Amino Transf (AST/SGOT) 21 U/L (15-37) Alanine Aminotransferase (ALT/SGPT) 17 U/L (14-59) Alkaline Phosphatase 84 U/L (46-116) Troponin I Quantitative < 0.017 ng/mL (0.000-0.055) < 0.017 ng/mL (0.000-0.055) Total Protein 6.8 g/dL (6.4-8.2) Albumin 3.3 g/dL (3.4-5.0) Albumin/Globulin Ratio 0.9 (1.0-1.7) Urine Collection Type Unknown Urine Color Yellow Urine Clarity Clear Urine pH 7.5 Urine Specific [place] 1.015 Urine Protein Negative mg/dL (NEG-TRACE) Urine Glucose (UA) 100 mg/dL (NEG) Urine Ketones (Stick) Trace mg/dL (NEG) Urine Blood Trace (NEG) Urine Nitrite Negative (NEG) Urine Bilirubin Negative (NEG) Urine Urobilinogen Dipstick 1.0 mg/dL (0.2 mg/dL) Urine Leukocyte Esterase Large (NEG) Urine RBC 3-5 /HPF (0-2) Urine WBC Tntc /HPF (0-4) Urine Squamous Epithelial Cells Many /LPF Urine Bacteria Few /HPF (0-FEW) Urine Hyaline Casts Moderate /HPF Urine Mucus Marked /LPF Glucose (Fingerstick) 155 mg/dL (70-99) Test 04/06/19 07:15 04/06/19 11:42 Glucose (Fingerstick) 182 mg/dL (70-99) 137 mg/dL (70-99) Images Images T head INDICATION: Altered mental status TECHNIQUE: Sequential axial images through the head were obtained without the administration of IV contrast. Comparisons: 03/28/2019 FINDINGS: No focal parenchymal lesion or hemorrhage is identified. There is no midline shift or sulcal effacement. Hypodense area in the right posterior parietal lobe. Patchy hypodensity in the periventricular white matter which is similar when compared to the prior exam. Agosto-white distinction is preserved. The ventricular system is within normal limits without compression hydrocephalus. The basal cisterns are well maintained. The visualized portions of the paranasal sinuses and mastoid air cells are well-pneumatized. No acute fractures. IMPRESSION: Hypodense area in the posterior right parietal lobe, may represent an area of subacute ischemia. MRI is recommended for further evaluation. Assessment/Plan Assessment/Plan Impression: Abnormal head CT, probably just an incidental finding Metabolic encephalopathy, cleared, urinary tract infection Diabetic peripheral neuropathy. Recommendations: I ordered a brain MRI Treat urinary tract infection Return to assisted when medically stable. Thank you for letting me help with the patient's care. JUDY TEJEDA MD Apr 06, 2019 13:10
[2019-04-06 15:00] VITALS: BP 132/45
--- NOTE | 2019-04-06 17:11 | RAD ---
Clinical indications: Altered mental status.. Technique: T1 and T2 and FLAIR MRI sequences of the whole brain were performed. Images were obtained in axial, coronal, and sagittal planes. Diffusion weighted MRI sequence was performed as well. Findings: There is a moderate-sized area of restricted diffusion within the posterior right temporal lobe. There are multiple punctate foci of restricted diffusion within the right parietal lobe. There is a punctate focus of restricted diffusion within the posterior right frontal lobe. The findings are consistent with acute or subacute infarcts within the last 14 days.. There is moderate bilateral periventricular white matter hyperintensities consistent with chronic small vessel ischemic disease. But there are some areas of hyperintensity within the areas are restricted diffusion of the posterior right frontal lobe and right parietal lobe. There is confluent edema of the posterior right temporal lobe corresponding to the area of restricted diffusion. Therefore, this may represent an infarct of at least 24 hours old.. No intracranial mass lesion or mass-effect is seen. No midline shift or hydrocephalus or extra-axial fluid collection is seen. No intracranial hemorrhage is identified. There is loss of normal vascular flow signal void within the right internal carotid artery.. The internal auditory canals have a symmetric appearance and no cerebellopontine angle mass is present. No opacification of the paranasal sinuses or mastoid sinuses is seen. No cerebellar tonsillar ectopia is seen. No pituitary mass is identified. Impression: Acute or subacute infarcts of at least 24 hours old (given the edema along with the restricted diffusion) involving the posterior right temporal lobe and the right parietal lobe and the posterior right frontal lobe.. In addition, there is loss of normal signal void within the right internal carotid artery. This may be seen with slow flow or occlusion of the right internal carotid artery. Note-this preliminary critical result was called to the patient's floor nurse Dwaine at 5:00 PM on April 06, 2019. Electronically signed by: Troy Vera MD (04/06/2019 5:09 PM) [facility] [place]
[2019-04-06] MEDS ORDERED: ACETAMINOPHEN 325 MG TABLET. PO PRN (17:15)
[2019-04-06] MEDS ORDERED: ASPIRIN RECTAL 300 MG SUPP. PR PRN (17:15)
[2019-04-06] MEDS ORDERED: ACETAMINOPHEN 650 MG SUPP.RECT. PR PRN (17:15)
--- NOTE | 2019-04-06 17:23 | NUR ---
Received critical MRI results. Paged Dr Morataya. Spoke with JESÚS Shah from ICU, she recommended doing bedside swallow test until page returned. Did bedside swallow, it appears swallowing is intact. Spoke with Dr Morataya, he stated he has seen the results and will place orders.
--- NOTE | 2019-04-06 18:10 | NUR ---
Did a NIH Stroke Scale on this pt after Lance the RN was given MRI results of acute infarct. Pt did score a '0'. Naseem Barton RN
--- NOTE | 2019-04-06 18:29 | NUR ---
1700 meds: critical MRII results came back around med pass time. US and [facility] were being done, administered meds when pt was available.
[2019-04-06 19:25] VITALS: BP 141/47
[2019-04-06] MEDS: cefTRIAXone IV Push 1 GM VIAL. IVP SCH (19:26)
[2019-04-06] MEDS: LACTOBACILLUS RHAMNOSUS GG 1 CAPSULE. PO SCH (22:05)
[2019-04-06 23:22] VITALS: BP 145/50
[2019-04-06] MEDS: INSULIN GLARGINE SYRINGE. SQ SCH (23:52)
[2019-04-07 03:24] VITALS: BP 122/50
[2019-04-07 07:20] VITALS: BP 136/53
[2019-04-07] MEDS: ASPIRIN ENTERIC COATED 325 MG TABLET.DR. PO SCH (09:03)
[2019-04-07] MEDS: OMEGA-3 FATTY ACIDS/FISH OIL 1,000 MG CAPSULE. PO SCH (09:03)
[2019-04-07] MEDS: MAGNESIUM OXIDE 400 MG TABLET PO SCH (09:03)
[2019-04-07] MEDS: LACTOBACILLUS RHAMNOSUS GG 1 CAPSULE. PO SCH ×2 (09:03→20:56)
[2019-04-07] MEDS: FOLIC/VIT B COMP W-C (RENAL) TABLET. PO SCH (09:03)
[2019-04-07] MEDS: GABAPENTIN 300 MG CAPSULE. PO SCH ×2 (09:03→20:56)
[2019-04-07] MEDS: LISINOPRIL 20 MG TABLET PO SCH (09:04)
[2019-04-07] MEDS: INSULIN LISPRO 300 UNITS/3 ML VIAL. SQ SCH ×3 (09:15→17:56)
--- NOTE | 2019-04-07 09:15 | RAD ---
Carotid doppler ultrasound History: CVA, abnormal MRI Multiple grayscale, color, and duplex spectral analysis waveform sonographic images were acquired of the carotid, subclavian, and vertebral arteries. Comparison: None Findings: RIGHT: PSV cm/sec EDV cm/sec Common carotid artery 72 8 Maximal internal carotid artery 65 9 Subclavian artery External carotid artery 80 Vertebral artery 43 ICA/CCA ratio 0.9 LEFT: PSV cm/sec EDV cm/sec Common carotid artery 72 13 Maximum internal carotid artery 106 26 Subclavian artery External carotid artery 115 Vertebral artery 93 ICA/CCA ratio 1.47 Velocities used to determine stenosis are known to correlate with NASCET angiographic criteria. There is antegrade flow in the bilateral vertebral arteries. While there were velocities obtained for what was believed to represent right internal carotid artery, reportedly this was difficult to confidently visualize. Impression: 1. There is no evidence of a hemodynamically significant stenosis although reportedly right internal carotid artery was not completely visualized and uncertain if possible collateral vessel instead of [place] vessel. CTA imaging may be beneficial for clarification of findings given the abnormal MRI findings. Electronically signed by: David Gutierrez MD (04/07/2019 9:13 AM) [facility]
--- NOTE | 2019-04-07 10:09 | NUR ---
Contacted Dr Rivas re: left sided facial droop. He stated he will place orders for a stat CT. Removed food and water from pt's room until speech therapy can evaluate patient, speech therapist has been paged. Will continue to monitor pt.
--- NOTE | 2019-04-07 10:26 | PDOC ---
PROGRESS NOTES History of Present Illness History of Present Illness ASSESSMENT AND PLAN: Mental status change, urinary tract infection, abnormal CAT scan head , Hypodense area in the right posterior parietal lobe. Patchy hypodensity in the periventricular white matter which is similar when compared to the prior exam. Agosto-white distinction is preserved. The ventricular system is within normal limits without compression hydrocephalus. The basal cisterns are well maintained. hypokalemia, foot wounds. 04/07 ct head ill-defined low-density of the right cerebral hemisphere overall somewhat progressed comparing with previous CT exam, also other areas of recent ischemia as seen on MRI brain exam. MRI would more accurately quantify degree of true change. 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 There is some reconstitution of right insular branches. calcified plaque of the carotid siphons bilaterally with degree of narrowing poorly characterized although probably more significant narrowing of the right cavernous internal carotid artery. There is poor visualization of the petrous internal carotid arteries bilaterally during exam for accurate evaluation. admitted. IV antibiotics, IV fluid support. Consult Neurology. Home meds, PT, OT, frequent labs. DVT prophylaxis. Full code. Stat CT angiogram and repeat head CT 04/07 38 min pt exam, chart review CC TIME , > 50% of time spent with exam, chart review, pt care coordination Vitals Vitals Vital Signs Date Time Temp Pulse Resp B/P (MAP) Pulse Ox O2 Delivery O2 Flow Rate FiO2 04/07/19 09:04 80 136/53 04/07/19 08:00 Room Air 04/07/19 07:20 98.7 18 94 98.7 Physical Exam Physical Exam VITALS: Within normal limits and are stable. GENERAL: No apparent distress. Alert and oriented.SOME NEW [place]URRED SPEECH TODAY NOTED HEENT: Head is normocephalic, atraumatic, pupils were equally round and reactive to light and accommodation. NECK: Supple, no JVD, no thyromegaly was noted. LUNGS: Clear to auscultation in all lung english without rhonchi or wheezing. HEART: RRR, S1, S2 present. Peripheral pulses intact, no obvious murmurs were noted. ABDOMEN: Soft, nontender. Positive bowel sounds no organomegaly, normal bowel sounds. EXTREMITIES: feet bunion, the biggest I have ever seen. The toes are pressured together also on the left. NEUROLOGIC: confused. PSYCHIATRIC: Normal affect, normal mood. Stable. SKIN: No ulcerations or rashes, good skin turgor, no jaundice. VASCULAR: Good capillary refill, neurovascular bundle appears to be intact. General: Cooperative Lungs: Clear Abdomen: Soft, No tenderness Extremities: No cyanosis Labs LABS STATUS: ADM IN ORD. PHYSICIAN: JUDY TEJEDA MD REASON: Neurological change PROCEDURE: CT ANGIOGRAPHY HEAD AND NECK CTA head and neck History: Neurological change, abnormal MRI Technique: After bolus of intravenous contrast, volumetric CT data acquisition was acquired of the head and neck. Multiplanar reconstruction images to include MIP and 3-D reconstruction images are submitted. Exposure: One or more of the following individualized dose reduction techniques were utilized for this examination: 1. Automated exposure control 2. Adjustment of the mA and/or kV according to patient size 3. Use of iterative reconstruction technique. Comparison: MRI brain exam April 06, 2019 Any determination of stenosis is based on NASCET criteria. CTA head: Findings: There is motion degradation. There is more abrupt occlusion of the right M1 segment distally. There is some reconstitution of right insular branches. There is calcified plaque of the bilateral carotid siphons, difficult to accurately quantify degree of narrowing due to calcified plaque, likely more significant narrowing of the right cavernous internal carotid artery. There is poor opacification of the petrous segments of the internal carotid arteries bilaterally during exam, limited characterization. There is likely at least moderate narrowing of the left cavernous internal carotid artery by calcified plaque. Both vertebral arteries constitute the basilar artery. There is visualization of segments of bilateral PICAs, AICAs not well-visualized on this motion degraded exam. There is mild calcified plaque of the proximal basilar artery without significant stenosis, other mild wall irregularity of the basilar artery. There is visualization of segments of bilateral superior cerebellar arteries. No significant posterior communicating arteries are visualized on either side. Impression: 1. There is abrupt occlusion of the distal right M1 segment. There is some reconstitution of right insular branches. 2. There is calcified plaque of the carotid siphons bilaterally with degree of narrowing poorly characterized although probably more significant narrowing of the right cavernous internal carotid artery. There is poor visualization of the petrous internal carotid arteries bilaterally during exam for accurate evaluation. Neck CTA: Findings: There is motion degradation. There are normal anatomic origins of the great vessels. Vertebral arteries are patent bilaterally without significant stenosis or dissection flap. There is calcified plaque of the left carotid bulb and proximal left internal carotid artery, maximal luminal diameter reduction of the left internal carotid artery proximally less than 50%. Maximal luminal reduction of the left carotid bulb is also less than 50%. There is some medial deviation of the right carotid artery into the retropharyngeal region. There is calcified and noncalcified plaque of the right carotid bulbs, also some scattered plaque of the right cervical internal carotid artery. Right cervical internal carotid artery is diffusely smaller in caliber compared with the left. No discrete dissection flap is confidently identified. There is degenerative disc disease greatest C5-6. There is grade 1 anterior spondylolisthesis C4-5 and to lesser degree C3-4, multilevel cervical facet degenerative change. There is likely mild central canal stenosis at C5-6. There is incomplete unification of posterior arch of C1 on developmental basis. There are bilateral thyroid nodules, on the left about 2.2 cm and on the right probably about 2 cm with some associated calcifications. Impression: 1. Right cervical internal carotid artery is diffusely small in caliber compared with the left. There is plaque of the left carotid bulb and proximal left internal carotid artery without significant stenosis. 2. There are thyroid nodules. Findings discussed with patient's nurse Dwaine at 04/07/2019 1:31 PM. FOR INTERNAL CODING PURPOSES RESULT CODE: (C) Electronically signed by: Lizandro Fritz MD (04/07/2019 1:34 PM) [facility] DICTATED and SIGNED BY: LIZANDRO FRITZ MD DATE: 04/07/[address] HEAD WO CONTRAST History: Neurological change Comparison: MRI brain exam 04/06/[address] exam 04/05/2019 Technique: Noncontrast CT imaging was performed of the head. Exposure: One or more of the following individualized dose reduction techniques were utilized for this examination: 1. Automated exposure control 2. Adjustment of the mA and/or kV according to patient size 3. Use of iterative reconstruction technique. Findings: There is motion degradation. No convincing acute intracranial hemorrhage is identified. There is again low density extending to the cortical surface centered in the right temporal lobe. There is a somewhat greater degree of ill-defined low-density of the right frontal parietal lobes also at which there was degree of restricted diffusion on MRI brain exam. There is again other scattered ill-defined low-density of the supratentorial parenchyma bilaterally. There is no new midline shift. Ventricular size is stable, within normal limits. There are elier bullosa greater in size on the right. There is patchy minimal ethmoid air cell mucosal thickening. Mastoid air cells are overall aerated. Impression: 1. Exam is degraded by motion. There is no convincing evidence of acute intracranial hemorrhage. There is again focus of lower density extending to the cortical surface centered in the right temporal lobe, evidence of recent infarct as demonstrated on MRI brain exam. There is a ill-defined low-density of the right cerebral hemisphere overall somewhat progressed comparing with previous CT exam, also other areas of recent ischemia as seen on MRI brain exam. MRI would more accurately quantify degree of true change. Electronically signed by: Lizandro Fritz MD (04/07/2019 1:13 PM) [facility] Laboratory Tests Test 04/06/19 11:42 04/06/19 17:04 04/06/19 23:45 04/07/19 07:28 Glucose (Fingerstick) 137 mg/dL (70-99) 160 mg/dL (70-99) 147 mg/dL (70-99) 146 mg/dL (70-99) Assessment and Plan Assessmemt and Plan Problems Medical Problems: (1) Altered mental status Status: Acute Comment Review of Relevant I have reviewed the following items nathaniel (where applicable) has been applied. Labs Laboratory Tests Test 04/05/19 18:15 04/05/19 19:08 04/05/19 21:45 04/05/19 22:30 White Blood Count 10.0 x10^3/uL (4.0-11.0) Red Blood Count 4.18 x10^6/uL (3.50-5.40) Hemoglobin 12.4 g/dL (12.0-15.5) Hematocrit 36.9 % (36.0-47.0) Mean Corpuscular Volume 88 fL (79-100) Mean Corpuscular Hemoglobin 30 pg (25-35) Mean Corpuscular Hemoglobin Concent 34 g/dL (31-37) Red Cell Distribution Width 13.9 % (11.5-14.5) Platelet Count 319 x10^3/uL (140-400) Neutrophils (%) (Auto) 55 % (31-73) Lymphocytes (%) (Auto) 31 % (24-48) Monocytes (%) (Auto) 11 % (0-9) Eosinophils (%) (Auto) 2 % (0-3) Basophils (%) (Auto) 1 % (0-3) Neutrophils # (Auto) 5.4 x10^3/uL (1.8-7.7) Lymphocytes # (Auto) 3.1 x10^3/uL (1.0-4.8) Monocytes # (Auto) 1.1 x10^3/uL (0.0-1.1) Eosinophils # (Auto) 0.2 x10^3/uL (0.0-0.7) Basophils # (Auto) 0.1 x10^3/uL (0.0-0.2) Sodium Level 143 mmol/L (136-145) Potassium Level 3.4 mmol/L (3.5-5.1) Chloride Level 105 mmol/L (98-107) Carbon Dioxide Level 29 mmol/L (21-32) Anion Gap 9 (6-14) Blood Urea Nitrogen 22 mg/dL (7-20) Creatinine 0.8 mg/dL (0.6-1.0) Estimated GFR (Cockcroft-Gault) 67.7 BUN/Creatinine Ratio 28 (6-20) Glucose Level 169 mg/dL (70-99) Lactic Acid Level 2.0 mmol/L (0.4-2.0) 0.8 mmol/L (0.4-2.0) Calcium Level 9.4 mg/dL (8.5-10.1) Total Bilirubin 0.5 mg/dL (0.2-1.0) Aspartate Amino Transf (AST/SGOT) 21 U/L (15-37) Alanine Aminotransferase (ALT/SGPT) 17 U/L (14-59) Alkaline Phosphatase 84 U/L (46-116) Troponin I Quantitative < 0.017 ng/mL (0.000-0.055) < 0.017 ng/mL (0.000-0.055) Total Protein 6.8 g/dL (6.4-8.2) Albumin 3.3 g/dL (3.4-5.0) Albumin/Globulin Ratio 0.9 (1.0-1.7) Urine Collection Type Unknown Urine Color Yellow Urine Clarity Clear Urine pH 7.5 Urine Specific [place] 1.015 Urine Protein Negative mg/dL (NEG-TRACE) Urine Glucose (UA) 100 mg/dL (NEG) Urine Ketones (Stick) Trace mg/dL (NEG) Urine Blood Trace (NEG) Urine Nitrite Negative (NEG) Urine Bilirubin Negative (NEG) Urine Urobilinogen Dipstick 1.0 mg/dL (0.2 mg/dL) Urine Leukocyte Esterase Large (NEG) Urine RBC 3-5 /HPF (0-2) Urine WBC Tntc /HPF (0-4) Urine Squamous Epithelial Cells Many /LPF Urine Bacteria Few /HPF (0-FEW) Urine Hyaline Casts Moderate /HPF Urine Mucus Marked /LPF Glucose (Fingerstick) 155 mg/dL (70-99) Test 04/06/19 07:15 04/06/19 11:42 04/06/19 17:04 04/06/19 23:45 Glucose (Fingerstick) 182 mg/dL (70-99) 137 mg/dL (70-99) 160 mg/dL (70-99) 147 mg/dL (70-99) Test 04/07/19 07:28 Glucose (Fingerstick) 146 mg/dL (70-99) Laboratory Tests Test 04/06/19 11:42 04/06/19 17:04 04/06/19 23:45 04/07/19 07:28 Glucose (Fingerstick) 137 mg/dL (70-99) 160 mg/dL (70-99) 147 mg/dL (70-99) 146 mg/dL (70-99) Microbiology 04/05/19 Blood Culture - Preliminary, Resulted NO GROWTH AFTER 1 DAY Medications Current Medications Sodium Chloride 1,000 ml @ 1,000 mls/hr 1X ONCE IV Last administered on 04/05/19at 18:20; Start 04/05/19 at 17:45; Stop 04/05/19 at 18:44; Status DC Ondansetron HCl (Zofran) 4 mg PRN Q8HRS PRN IV NAUSEA/VOMITING; Start 04/05/19 at 19:15; Stop 04/06/19 at 19:14; Status DC Fentanyl Citrate (Fentanyl 2ml Vial) 50 mcg PRN Q1HR PRN IV PAIN; Start 04/05/19 at 19:15; Stop 04/06/19 at 19:14; Status UNV Acetaminophen (Tylenol) 650 mg PRN Q4HRS PRN PO FEVER; Start 04/05/19 at 19:15; Stop 04/06/19 at 19:14; Status DC Aspirin (Abena Aspirin) 325 mg DAILY PO ; Start 04/06/19 at 09:00; Stop 06/13 at 11:02; Status DC Gabapentin (Neurontin) 300 mg BID PO Last administered on 04/07/19 09:03; Start 04/06/19 at 09:00 Insulin Human Lispro (HumaLOG) 5 units TIDWMEALS SQ Last administered on 04/07/19 09:15; Start 04/06/19 at 08:00 Lisinopril (Prinivil) 40 mg DAILY PO Last administered on 04/07/19 09:04; Start 04/06/19 at 09:00 Vitamin B Complex/ Vitamin C (Lizzette-Jose Carlos) 1 tab DAILY PO Last administered on 04/07/19 09:03; Start 04/06/19 at 09:00 Insulin Glargine (Lantus Syringe) 10 unit QHS SQ Last administered on 04/06/19 23:52; Start 04/06/19 at 21:00 Magnesium Oxide (Magnesium Oxide) 400 mg DAILY PO Last administered on 04/07/19 09:03; Start 04/06/19 at 09:00 Fish Oil (Fish Oil) 1,000 mg DAILY PO Last administered on 04/07/19 09:03; Start 04/06/19 at 09:00 Aspirin (Baena Aspirin) 325 mg QHS PO ; Start 04/06/19 at 21:00; Stop 04/06/19 at 17:17; Status DC Ceftriaxone Sodium (Rocephin) 1 gm Q24H IVP Last administered on 04/06/19at 19:26; Start 04/06/19 at 17:00 Lactobacillus Rhamnosus (Culturelle) 1 cap BID PO Last administered on 04/07/19 09:03; Start 04/06/19 at 21:00 Acetaminophen (Tylenol) 650 mg PRN Q6HRS PRN PO TEMP > 100.4F; Start 04/06/19 at 17:15 Acetaminophen (Tylenol Supp) 650 mg PRN Q4HRS PRN MT TEMP > 100.4F; Start 04/06/19 at 17:15 Aspirin (Ecotrin) 325 mg DAILYWBKFT PO Last administered on 04/07/19at 09:03; Start 04/07/19 at 08:00 Aspirin (Aspirin Rectal Supp) 300 mg PRN DAILY PRN MT IF UNABLE TO TAKE PO; Start 04/06/19 at 17:15 Active Scripts Active [mac] 25 mg/ 5 ml 20 Ml PO 7 Days Macrobid 100 Mg Capsule (Nitrofurantoin Monohyd/M-Cryst) 100 Mg Capsule 1 Cap PO BID Reported Lantus Solostar (Insulin Glargine,Hum.rec.anlog) 100 Unit/1 Ml Insuln.pen 10 Unit SQ QHS Humalog (Insulin Lispro) 100 Unit/1 Ml Vial 5 Unit SQ TIDWMEALS Benazepril Hcl 40 Mg Tablet 40 Mg PO DAILY Fish Oil [place]-3 Softgel ([place]-3S/Dha/Epa/Fish Oil) 1 Each Capsule.dr 1 Each PO DAILY Renal Caps Softgel (Folic Acid/Vitamin B Comp W-C) 1 Mg Capsule 1 Mg PO DAILY Aspirin 325 Mg Tablet 325 Mg PO DAILY Magnesium (Magnesium Oxide) 400 Mg Capsule 500 Mg PO DAILY Gabapentin (Gabapentin) 300 Mg Capsule 300 Mg PO BID Vitals/I & O Vital Sign - Last 24 Hours 04/06/19 04/06/19 04/06/19 04/06/19 11:00 15:00 19:25 20:00 Temp 98.3 98.0 98.7 98.3 98.0 98.7 Pulse 74 83 87 Resp 18 18 B/P (MAP) 130/55 (80) 132/45 (74) 141/47 (78) Pulse Ox 95 97 98 O2 Delivery Room Air Room Air Room Air Room Air 04/06/19 04/07/19 04/07/19 04/07/19 23:22 03:24 07:20 08:00 Temp 98.8 98.4 98.7 98.8 98.4 98.7 Pulse 82 75 80 Resp 18 18 18 B/P (MAP) 145/50 (81) 122/50 (74) 136/53 (80) Pulse Ox 94 95 94 O2 Delivery Room Air Room Air Room Air Room Air 04/07/19 09:04 Pulse 80 B/P (MAP) 136/53 Intake and Output 10/12/19 10/12/19 10/13/19 15:00 23:00 07:00 Intake Total 520 ml 360 ml Balance 520 ml 360 ml MARCY STARKEY MD Apr 07, 2019 10:26
--- NOTE | 2019-04-07 11:30 | PDOC ---
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 Possible slow flow or occlusion of right internal carotid artery, but carotid studies are negative She worsened this morning earlier, but is now better .Metabolic encephalopathy, cleared, urinary tract infection Diabetic peripheral neuropathy. Plan Stat CT angiogram and repeat head CT Continue aspirin, no role for heparin, not a candidate for alteplase, infarcts have already occurred Await echocardiogram Await lipid panel Rehabilitation modalities. Subjective No complaints, denies headache Objective Vital Signs Date Time Temp Pulse Resp B/P (MAP) Pulse Ox O2 Delivery O2 Flow Rate FiO2 04/07/19 09:04 80 136/53 04/07/19 08:00 Room Air 04/07/19 07:20 98.7 18 94 98.7 Intake and Output 04/07/19 07:00 Intake Total 880 ml Balance 880 ml Intake Oral 880 ml # Voids 2 PHYSICAL EXAM Alert. Oriented to time, place and person. PERRL. EOMI. CN: Left central facial weakness, dysarthric speech Muscle tone: normal. Muscle strength: 4/5 on right DTR: 1+ Plantar reflex: flexor Gait: not examined in bed. Sensory exam: stocking loss. No cerebellar signs elicited. Review of Relevant I have reviewed the following items nathaniel (where applicable) has been applied. Labs Laboratory Tests Test 04/05/19 18:15 04/05/19 19:08 04/05/19 21:45 04/05/19 22:30 White Blood Count 10.0 x10^3/uL (4.0-11.0) Red Blood Count 4.18 x10^6/uL (3.50-5.40) Hemoglobin 12.4 g/dL (12.0-15.5) Hematocrit 36.9 % (36.0-47.0) Mean Corpuscular Volume 88 fL (79-100) Mean Corpuscular Hemoglobin 30 pg (25-35) Mean Corpuscular Hemoglobin Concent 34 g/dL (31-37) Red Cell Distribution Width 13.9 % (11.5-14.5) Platelet Count 319 x10^3/uL (140-400) Neutrophils (%) (Auto) 55 % (31-73) Lymphocytes (%) (Auto) 31 % (24-48) Monocytes (%) (Auto) 11 % (0-9) Eosinophils (%) (Auto) 2 % (0-3) Basophils (%) (Auto) 1 % (0-3) Neutrophils # (Auto) 5.4 x10^3/uL (1.8-7.7) Lymphocytes # (Auto) 3.1 x10^3/uL (1.0-4.8) Monocytes # (Auto) 1.1 x10^3/uL (0.0-1.1) Eosinophils # (Auto) 0.2 x10^3/uL (0.0-0.7) Basophils # (Auto) 0.1 x10^3/uL (0.0-0.2) Sodium Level 143 mmol/L (136-145) Potassium Level 3.4 mmol/L (3.5-5.1) Chloride Level 105 mmol/L (98-107) Carbon Dioxide Level 29 mmol/L (21-32) Anion Gap 9 (6-14) Blood Urea Nitrogen 22 mg/dL (7-20) Creatinine 0.8 mg/dL (0.6-1.0) Estimated GFR (Cockcroft-Gault) 67.7 BUN/Creatinine Ratio 28 (6-20) Glucose Level 169 mg/dL (70-99) Lactic Acid Level 2.0 mmol/L (0.4-2.0) 0.8 mmol/L (0.4-2.0) Calcium Level 9.4 mg/dL (8.5-10.1) Total Bilirubin 0.5 mg/dL (0.2-1.0) Aspartate Amino Transf (AST/SGOT) 21 U/L (15-37) Alanine Aminotransferase (ALT/SGPT) 17 U/L (14-59) Alkaline Phosphatase 84 U/L (46-116) Troponin I Quantitative < 0.017 ng/mL (0.000-0.055) < 0.017 ng/mL (0.000-0.055) Total Protein 6.8 g/dL (6.4-8.2) Albumin 3.3 g/dL (3.4-5.0) Albumin/Globulin Ratio 0.9 (1.0-1.7) Urine Collection Type Unknown Urine Color Yellow Urine Clarity Clear Urine pH 7.5 Urine Specific [place] 1.015 Urine Protein Negative mg/dL (NEG-TRACE) Urine Glucose (UA) 100 mg/dL (NEG) Urine Ketones (Stick) Trace mg/dL (NEG) Urine Blood Trace (NEG) Urine Nitrite Negative (NEG) Urine Bilirubin Negative (NEG) Urine Urobilinogen Dipstick 1.0 mg/dL (0.2 mg/dL) Urine Leukocyte Esterase Large (NEG) Urine RBC 3-5 /HPF (0-2) Urine WBC Tntc /HPF (0-4) Urine Squamous Epithelial Cells Many /LPF Urine Bacteria Few /HPF (0-FEW) Urine Hyaline Casts Moderate /HPF Urine Mucus Marked /LPF Glucose (Fingerstick) 155 mg/dL (70-99) Test 04/06/19 07:15 04/06/19 11:42 04/06/19 17:04 04/06/19 23:45 Glucose (Fingerstick) 182 mg/dL (70-99) 137 mg/dL (70-99) 160 mg/dL (70-99) 147 mg/dL (70-99) Test 04/07/19 07:28 Glucose (Fingerstick) 146 mg/dL (70-99) Laboratory Tests Test 04/06/19 11:42 04/06/19 17:04 04/06/19 23:45 04/07/19 07:28 Glucose (Fingerstick) 137 mg/dL (70-99) 160 mg/dL (70-99) 147 mg/dL (70-99) 146 mg/dL (70-99) Microbiology 04/05/19 Blood Culture - Preliminary, Resulted NO GROWTH AFTER 1 DAY Medications Current Medications Sodium Chloride 1,000 ml @ 1,000 mls/hr 1X ONCE IV Last administered on 04/05/19at 18:20; Start 04/05/19 at 17:45; Stop 04/05/19 at 18:44; Status DC Ondansetron HCl (Zofran) 4 mg PRN Q8HRS PRN IV NAUSEA/VOMITING; Start 04/05/19 at 19:15; Stop 04/06/19 at 19:14; Status DC Fentanyl Citrate (Fentanyl 2ml Vial) 50 mcg PRN Q1HR PRN IV PAIN; Start 04/05/19 at 19:15; Stop 04/06/19 at 19:14; Status UNV Acetaminophen (Tylenol) 650 mg PRN Q4HRS PRN PO FEVER; Start 04/05/19 at 19:15; Stop 04/06/19 at 19:14; Status DC Aspirin (Abena Aspirin) 325 mg DAILY PO ; Start 04/06/19 at 09:00; Stop 04/06/19 at 11:02; Status DC Gabapentin (Neurontin) 300 mg BID PO Last administered on 04/07/19 09:03; Start 04/06/19 at 09:00 Insulin Human Lispro (HumaLOG) 5 units TIDWMEALS SQ Last administered on 04/07/19 09:15; Start 04/06/19 at 08:00 Lisinopril (Prinivil) 40 mg DAILY PO Last administered on 04/07/19 09:04; Start 04/06/19 at 09:00 Vitamin B Complex/ Vitamin C (Lizzette-Jose Carlos) 1 tab DAILY PO Last administered on 04/07/19 09:03; Start 04/06/19 at 09:00 Insulin Glargine (Lantus Syringe) 10 unit QHS SQ Last administered on 04/06/19a t 23:52; Start 04/06/19 at 21:00 Magnesium Oxide (Magnesium Oxide) 400 mg DAILY PO Last administered on 04/07/19 09:03; Start 04/06/19 at 09:00 Fish Oil (Fish Oil) 1,000 mg DAILY PO Last administered on 04/07/19 09:03; Start 04/06/19 at 09:00 Aspirin (Abena Aspirin) 325 mg QHS PO ; Start 04/06/19 at 21:00; Stop 04/06/19 at 17:17; Status DC Ceftriaxone Sodium (Rocephin) 1 gm Q24H IVP Last administered on 04/06/19 19:26; Start 04/06/19 at 17:00 Lactobacillus Rhamnosus (Culturelle) 1 cap BID PO Last administered on 04/07/19 09:03; Start 04/06/19 at 21:00 Acetaminophen (Tylenol) 650 mg PRN Q6HRS PRN PO TEMP > 100.4F; Start 04/06/19 at 17:15 Acetaminophen (Tylenol Supp) 650 mg PRN Q4HRS PRN [place] TEMP > 100.4F; Start 04/06/19 at 17:15 Aspirin (Ecotrin) 325 mg DAILYWBKFT PO Last administered on 04/07/19at 09:03; Start 04/07/19 at 08:00 Aspirin (Aspirin Rectal Supp) 300 mg PRN DAILY PRN [place] IF UNABLE TO TAKE PO; Start 04/06/19 at 17:15 Active Scripts Active [mac] 25 mg/ 5 ml 20 Ml PO 7 Days Macrobid 100 Mg Capsule (Nitrofurantoin Monohyd/M-Cryst) 100 Mg Capsule 1 Cap PO BID Reported Lantus Solostar (Insulin Glargine,Hum.rec.anlog) 100 Unit/1 Ml Insuln.pen 10 Unit SQ QHS Humalog (Insulin Lispro) 100 Unit/1 Ml Vial 5 Unit SQ TIDWMEALS Benazepril Hcl 40 Mg Tablet 40 Mg PO DAILY Fish Oil [place]-3 Softgel ([place]-3S/Dha/Epa/Fish Oil) 1 Each Capsule.dr 1 Each PO DAILY Renal Caps Softgel (Folic Acid/Vitamin B Comp W-C) 1 Mg Capsule 1 Mg PO DAILY Aspirin 325 Mg Tablet 325 Mg PO DAILY Magnesium (Magnesium Oxide) 400 Mg Capsule 500 Mg PO DAILY Gabapentin (Gabapentin) 300 Mg Capsule 300 Mg PO BID Vitals/I & O Vital Sign - Last 24 Hours 04/06/19 04/06/19 04/06/19 04/06/19 15:00 19:25 20:00 23:22 Temp 98.0 98.7 98.8 98.0 98.7 98.8 Pulse 83 87 82 Resp 18 18 B/P (MAP) 132/45 (74) 141/47 (78) 145/50 (81) Pulse Ox 97 98 94 O2 Delivery Room Air Room Air Room Air Room Air 04/07/19 04/07/19 04/07/19 04/07/19 03:24 07:20 08:00 09:04 Temp 98.4 98.7 98.4 98.7 Pulse 75 80 80 Resp 18 18 B/P (MAP) 122/50 (74) 136/53 (80) 136/53 Pulse Ox 95 94 O2 Delivery Room Air Room Air Room Air Intake and Output 04/06/19 04/06/19 04/07/19 15:00 23:00 07:00 Intake Total 520 ml 360 ml Balance 520 ml 360 ml Images BRAIN W/O CONTRAST Clinical indications: Altered mental status.. Technique: T1 and T2 and FLAIR MRI sequences of the whole brain were performed. Images were obtained in axial, coronal, and sagittal planes. Diffusion weighted MRI sequence was performed as well. Findings: There is a moderate-sized area of restricted diffusion within the posterior right temporal lobe. There are multiple punctate foci of restricted diffusion within the right parietal lobe. There is a punctate focus of restricted diffusion within the posterior right frontal lobe. The findings are consistent with acute or subacute infarcts within the last 14 days.. There is moderate bilateral periventricular white matter hyperintensities consistent with chronic small vessel ischemic disease. But there are some areas of hyperintensity within the areas are restricted diffusion of the posterior right frontal lobe and right parietal lobe. There is confluent edema of the posterior right temporal lobe corresponding to the area of restricted diffusion. Therefore, this may represent an infarct of at least 24 hours old.. No intracranial mass lesion or mass-effect is seen. No midline shift or hydrocephalus or extra-axial fluid collection is seen. No intracranial hemorrhage is identified. There is loss of normal vascular flow signal void within the right internal carotid artery.. The internal auditory canals have a symmetric appearance and no cerebellopontine angle mass is present. No opacification of the paranasal sinuses or mastoid sinuses is seen. No cerebellar tonsillar ectopia is seen. No pituitary mass is identified. Impression: Acute or subacute infarcts of at least 24 hours old (given the edema along with the restricted diffusion) involving the posterior right temporal lobe and the right parietal lobe and the posterior right frontal lobe.. In addition, there is loss of normal signal void within the right internal carotid artery. This may be seen with slow flow or occlusion of the right internal carotid artery. Carotid doppler ultrasound History: CVA, abnormal MRI Multiple grayscale, color, and duplex spectral analysis waveform sonographic images were acquired of the carotid, subclavian, and vertebral arteries. Comparison: None Findings: RIGHT: PSV cm/sec EDV cm/sec Common carotid artery 72 8 Maximal internal carotid artery 65 9 Subclavian artery External carotid artery 80 Vertebral artery 43 ICA/CCA ratio 0.9 LEFT: PSV cm/sec EDV cm/sec Common carotid artery 72 13 Maximum internal carotid artery 106 26 Subclavian artery External carotid artery 115 Vertebral artery 93 ICA/CCA ratio 1.47 Velocities used to determine stenosis are known to correlate with NASCET angiographic criteria. There is antegrade flow in the bilateral vertebral arteries. While there were velocities obtained for what was believed to represent right internal carotid artery, reportedly this was difficult to confidently visualize. Impression: 1. There is no evidence of a hemodynamically significant stenosis although reportedly right internal carotid artery was not completely visualized and uncertain if possible collateral vessel instead of [place] vessel. CTA imaging may be beneficial for clarification of findings given the abnormal MRI findings. JUDY TEJEDA MD Apr 07, 2019 11:30
[2019-04-07 11:36] VITALS: BP 143/41
--- NOTE | 2019-04-07 11:37 | EKG ---
[facility] [address] [place] [address] Test Date: 2019-04-05 Test Time: 17:38:30 Pat Name: JAMIE AGUILAR Department: Room: 654 1 Gender: F Behavioral Health Assistant: : 1930 Requested By: CHUY GUTIÉRREZ Order Number: [id number] Reading MD: Eber Marrero MD Measurements Intervals [place] Rate: 80 P: 0 AL: 324 QRS: 27 QRSD: 80 T: 37 QT: 356 QTc: 414 Interpretive Statements SINUS RHYTHM PROLONGED AL INTERVAL Electronically Signed On 04-15-2019 8:54:05 CDT by Eber Marrero MD
[2019-04-07] MEDS ORDERED: CONTRAST GIVEN. MC PRN (12:15)
[2019-04-07] MEDS ORDERED: IOHEXOL 300 MG/ML 100ML VIAL. IV ONE (12:15)
--- NOTE | 2019-04-07 13:16 | RAD ---
CT HEAD WO CONTRAST History: Neurological change Comparison: MRI brain exam 04/06/[address] exam 04/05/2019 Technique: Noncontrast CT imaging was performed of the head. Exposure: One or more of the following individualized dose reduction techniques were utilized for this examination: 1. Automated exposure control 2. Adjustment of the mA and/or kV according to patient size 3. Use of iterative reconstruction technique. Findings: There is motion degradation. No convincing acute intracranial hemorrhage is identified. There is again low density extending to the cortical surface centered in the right temporal lobe. There is a somewhat greater degree of ill-defined low-density of the right frontal parietal lobes also at which there was degree of restricted diffusion on MRI brain exam. There is again other scattered ill-defined low-density of the supratentorial parenchyma bilaterally. There is no new midline shift. Ventricular size is stable, within normal limits. There are elier bullosa greater in size on the right. There is patchy minimal ethmoid air cell mucosal thickening. Mastoid air cells are overall aerated. Impression: 1. Exam is degraded by motion. There is no convincing evidence of acute intracranial hemorrhage. There is again focus of lower density extending to the cortical surface centered in the right temporal lobe, evidence of recent infarct as demonstrated on MRI brain exam. There is a ill-defined low-density of the right cerebral hemisphere overall somewhat progressed comparing with previous CT exam, also other areas of recent ischemia as seen on MRI brain exam. MRI would more accurately quantify degree of true change. Electronically signed by: David Gutierrez MD (04/07/2019 1:13 PM) [facility]
--- NOTE | 2019-04-07 13:36 | RAD ---
CTA head and neck History: Neurological change, abnormal MRI Technique: After bolus of intravenous contrast, volumetric CT data acquisition was acquired of the head and neck. Multiplanar reconstruction images to include MIP and 3-D reconstruction images are submitted. Exposure: One or more of the following individualized dose reduction techniques were utilized for this examination: 1. Automated exposure control 2. Adjustment of the mA and/or kV according to patient size 3. Use of iterative reconstruction technique. Comparison: MRI brain exam April 06, 2019 Any determination of stenosis is based on NASCET criteria. CTA head: Findings: There is motion degradation. There is more abrupt occlusion of the right M1 segment distally. There is some reconstitution of right insular branches. There is calcified plaque of the bilateral carotid siphons, difficult to accurately quantify degree of narrowing due to calcified plaque, likely more significant narrowing of the right cavernous internal carotid artery. There is poor opacification of the petrous segments of the internal carotid arteries bilaterally during exam, limited characterization. There is likely at least moderate narrowing of the left cavernous internal carotid artery by calcified plaque. Both vertebral arteries constitute the basilar artery. There is visualization of segments of bilateral PICAs, AICAs not well-visualized on this motion degraded exam. There is mild calcified plaque of the proximal basilar artery without significant stenosis, other mild wall irregularity of the basilar artery. There is visualization of segments of bilateral superior cerebellar arteries. No significant posterior communicating arteries are visualized on either side. Impression: 1. There is abrupt occlusion of the distal right M1 segment. There is some reconstitution of right insular branches. 2. There is calcified plaque of the carotid siphons bilaterally with degree of narrowing poorly characterized although probably more significant narrowing of the right cavernous internal carotid artery. There is poor visualization of the petrous internal carotid arteries bilaterally during exam for accurate evaluation. Neck CTA: Findings: There is motion degradation. There are normal anatomic origins of the great vessels. Vertebral arteries are patent bilaterally without significant stenosis or dissection flap. There is calcified plaque of the left carotid bulb and proximal left internal carotid artery, maximal luminal diameter reduction of the left internal carotid artery proximally less than 50%. Maximal luminal reduction of the left carotid bulb is also less than 50%. There is some medial deviation of the right carotid artery into the retropharyngeal region. There is calcified and noncalcified plaque of the right carotid bulbs, also some scattered plaque of the right cervical internal carotid artery. Right cervical internal carotid artery is diffusely smaller in caliber compared with the left. No discrete dissection flap is confidently identified. There is degenerative disc disease greatest C5-6. There is grade 1 anterior spondylolisthesis C4-5 and to lesser degree C3-4, multilevel cervical facet degenerative change. There is likely mild central canal stenosis at C5-6. There is incomplete unification of posterior arch of C1 on developmental basis. There are bilateral thyroid nodules, on the left about 2.2 cm and on the right probably about 2 cm with some associated calcifications. Impression: 1. Right cervical internal carotid artery is diffusely small in caliber compared with the left. There is plaque of the left carotid bulb and proximal left internal carotid artery without significant stenosis. 2. There are thyroid nodules. Findings discussed with patient's nurse Dwaine at 04/07/2019 1:31 PM. FOR INTERNAL CODING PURPOSES RESULT CODE: (C) Electronically signed by: David Gutierrez MD (04/07/2019 1:34 PM) [facility]
[2019-04-07 14:48] VITALS: BP 142/39
[2019-04-07] MEDS: cefTRIAXone IV Push 1 GM VIAL. IVP SCH (17:42)
[2019-04-07] MEDS: IV NORMAL SALINE 1000ML BAG 1,000 ML IV SCH (17:42)
[2019-04-07 19:23] VITALS: BP 137/48
[2019-04-07] MEDS ORDERED: ONDANSETRON PF 4 MG/2 ML VIAL. IVP PRN (20:15)
[2019-04-07] MEDS ORDERED: DEXTROSE 50% 25 GM / 50ML DISP.SYRIN. IV PRN (20:15)
[2019-04-07] MEDS: INSULIN GLARGINE SYRINGE. SQ SCH (20:56)
[2019-04-07 23:14] VITALS: BP 147/51
[2019-04-08 03:00] VITALS: BP 144/53
--- NOTE | 2019-04-08 06:01 | NUR ---
pt iv infiltrated, waiting for picc line placement.
[2019-04-08 07:37] LABS: BASO # 0.1 x10^3/uL (0.0-0.2); BASO % 1 % (0-3); EOS # 0.3 x10^3/uL (0.0-0.7); EOS % 2 % (0-3); HEMATOCRIT 37.6 % (36.0-47.0); HEMOGLOBIN 12.4 g/dL (12.0-15.5); LYMPH # 2.3 x10^3/uL (1.0-4.8); LYMPH % 21 % (24-48); MEAN CORPUSCULAR HEMOGLOBIN 30 pg (25-35); MEAN CORPUSCULAR HGB CONC 33 g/dL (31-37); MEAN CORPUSCULAR VOLUME 90 fL (79-100); MONO # 1.1 x10^3/uL (0.0-1.1); MONO % 9 % (0-9); NEUT # 7.6 x10^3/uL (1.8-7.7); NEUT % 67 % (31-73); PLATELET COUNT 278 x10^3/uL (140-400); RED BLOOD COUNT 4.18 x10^6/uL (3.50-5.40); RED CELL DISTRIBUTION WIDTH 13.9 % (11.5-14.5); WHITE BLOOD COUNT 11.4 x10^3/uL (4.0-11.0)
[2019-04-08 07:43] LABS: PROTHROMBIN TIME PATIENT 13.7 SEC (11.7-14.0)
[2019-04-08 08:00] VITALS: BP 168/59
[2019-04-08] MEDS: INSULIN LISPRO 300 UNITS/3 ML VIAL. SQ SCH ×6 (08:00→17:00)
[2019-04-08] MEDS: ASPIRIN ENTERIC COATED 325 MG TABLET.DR. PO SCH (08:00)
[2019-04-08 08:07] LABS: CALCIUM 9.1 mg/dL (8.5-10.1); CHOLESTEROL/HDL RATIO 3.1; CREATININE 0.9 mg/dL (0.6-1.0); GFR 59.1; POTASSIUM 3.4 mmol/L (3.5-5.1)
--- NOTE | 2019-04-08 08:33 | PDOC ---
PROGRESS NOTES Chief Complaint Chief Complaint ASSESSMENT AND PLAN: Mental status change, urinary tract infection, abnormal CAT scan head , Hypodense area in the right posterior parietal lobe. Patchy hypodensity in the periventricular white matter which is similar when compared to the prior exam. Agosto-white distinction is preserved. The ventricular system is within normal limits without compression hydrocephalus. The basal cisterns are well maintained. hypokalemia, foot wounds. 04/07 ct head ill-defined low-density of the right cerebral hemisphere overall somewhat progressed comparing with previous CT exam, also other areas of recent ischemia as seen on MRI brain exam. MRI would more accurately quantify degree of true change. 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 There is some reconstitution of right insular branches. calcified plaque of the carotid siphons bilaterally with degree of narrowing poorly characterized although probably more significant narrowing of the right cavernous internal carotid artery. There is poor visualization of the petrous internal carotid arteries bilaterally during exam for accurate evaluation. admitted. IV antibiotics, IV fluid support. Consult Neurology. Home meds, PT, OT, frequent labs. DVT prophylaxis. Full code. 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 Still having trouble with swallowing today. D/w family bedside skilled services on d/c would be appropriate as they were concerned she has stopped taking her diabetes and h ypertension medications at home and has stopped taking her RA meds as well. She is asking for food. Denies CP or SOB Vitals Vitals Vital Signs Date Time Temp Pulse Resp B/P (MAP) Pulse Ox O2 Delivery O2 Flow Rate FiO2 04/08/19 08:03 90 16 94 Room Air 04/08/19 08:00 98.2 168/59 (95) 98.2 Physical Exam Physical Exam VITALS: Within normal limits and are stable. GENERAL: No apparent distress. Alert and oriented.SOME NEW SLURRED SPEECH TODAY NOTED HEENT: Head is normocephalic, atraumatic, pupils were equally round and reactive to light and accommodation. NECK: Supple, no JVD, no thyromegaly was noted. LUNGS: Clear to auscultation in all lung english without rhonchi or wheezing. HEART: RRR, S1, S2 present. Peripheral pulses intact, no obvious murmurs were noted. ABDOMEN: Soft, nontender. Positive bowel sounds no organomegaly, normal bowel sounds. EXTREMITIES: feet bunion, the biggest I have ever seen. The toes are pressured together also on the left. NEUROLOGIC: confused. PSYCHIATRIC: Normal affect, normal mood. Stable. SKIN: No ulcerations or rashes, good skin turgor, no jaundice. VASCULAR: Good capillary refill, neurovascular bundle appears to be intact. General: Cooperative Lungs: Clear Abdomen: Soft, No tenderness Extremities: No cyanosis Labs LABS Laboratory Tests Test 04/07/19 11:32 04/07/19 16:24 04/07/19 20:48 04/07/19 21:23 Glucose (Fingerstick) 118 mg/dL (70-99) 146 mg/dL (70-99) 50 mg/dL (70-99) 85 mg/dL (70-99) Test 04/07/19 23:37 04/08/19 04:49 04/08/19 06:45 04/08/19 07:27 Glucose (Fingerstick) 110 mg/dL (70-99) 133 mg/dL (70-99) 147 mg/dL (70-99) White Blood Count 11.4 x10^3/uL (4.0-11.0) Red Blood Count 4.18 x10^6/uL (3.50-5.40) Hemoglobin 12.4 g/dL (12.0-15.5) Hematocrit 37.6 % (36.0-47.0) Mean Corpuscular Volume 90 fL (79-100) Mean Corpuscular Hemoglobin 30 pg (25-35) Mean Corpuscular Hemoglobin Concent 33 g/dL (31-37) Red Cell Distribution Width 13.9 % (11.5-14.5) Platelet Count 278 x10^3/uL (140-400) Neutrophils (%) (Auto) 67 % (31-73) Lymphocytes (%) (Auto) 21 % (24-48) Monocytes (%) (Auto) 9 % (0-9) Eosinophils (%) (Auto) 2 % (0-3) Basophils (%) (Auto) 1 % (0-3) Neutrophils # (Auto) 7.6 x10^3/uL (1.8-7.7) Lymphocytes # (Auto) 2.3 x10^3/uL (1.0-4.8) Monocytes # (Auto) 1.1 x10^3/uL (0.0-1.1) Eosinophils # (Auto) 0.3 x10^3/uL (0.0-0.7) Basophils # (Auto) 0.1 x10^3/uL (0.0-0.2) Prothrombin Time 13.7 SEC (11.7-14.0) Prothromb Time International Ratio 1.1 (0.8-1.1) Sodium Level 141 mmol/L (136-145) Potassium Level 3.4 mmol/L (3.5-5.1) Chloride Level 104 mmol/L (98-107) Carbon Dioxide Level 28 mmol/L (21-32) Anion Gap 9 (6-14) Blood Urea Nitrogen 25 mg/dL (7-20) Creatinine 0.9 mg/dL (0.6-1.0) Estimated GFR (Cockcroft-Gault) 59.1 Glucose Level 136 mg/dL (70-99) Calcium Level 9.1 mg/dL (8.5-10.1) Triglycerides Level 73 mg/dL (0-150) Cholesterol Level 152 mg/dL (0-200) LDL Cholesterol, Calculated 88 mg/dL (0-100) VLDL Cholesterol, Calculated 15 mg/dL (0-40) Non-HDL Cholesterol Calculated 103 mg/dL (0-129) HDL Cholesterol 49 mg/dL (40-60) Cholesterol/HDL Ratio 3.1 Assessment and Plan Assessmemt and Plan Problems Medical Problems: (1) Altered mental status Status: Acute Comment Review of Relevant I have reviewed the following items nathaniel (where applicable) has been applied. Labs Laboratory Tests Test 04/06/19 11:42 04/06/19 17:04 04/06/19 23:45 04/07/19 07:28 Glucose (Fingerstick) 137 mg/dL (70-99) 160 mg/dL (70-99) 147 mg/dL (70-99) 146 mg/dL (70-99) Test 04/07/19 11:32 04/07/19 16:24 04/07/19 20:48 04/07/19 21:23 Glucose (Fingerstick) 118 mg/dL (70-99) 146 mg/dL (70-99) 50 mg/dL (70-99) 85 mg/dL (70-99) Test 04/07/19 23:37 04/08/19 04:49 04/08/19 06:45 04/08/19 07:27 Glucose (Fingerstick) 110 mg/dL (70-99) 133 mg/dL (70-99) 147 mg/dL (70-99) White Blood Count 11.4 x10^3/uL (4.0-11.0) Red Blood Count 4.18 x10^6/uL (3.50-5.40) Hemoglobin 12.4 g/dL (12.0-15.5) Hematocrit 37.6 % (36.0-47.0) Mean Corpuscular Volume 90 fL (79-100) Mean Corpuscular Hemoglobin 30 pg (25-35) Mean Corpuscular Hemoglobin Concent 33 g/dL (31-37) Red Cell Distribution Width 13.9 % (11.5-14.5) Platelet Count 278 x10^3/uL (140-400) Neutrophils (%) (Auto) 67 % (31-73) Lymphocytes (%) (Auto) 21 % (24-48) Monocytes (%) (Auto) 9 % (0-9) Eosinophils (%) (Auto) 2 % (0-3) Basophils (%) (Auto) 1 % (0-3) Neutrophils # (Auto) 7.6 x10^3/uL (1.8-7.7) Lymphocytes # (Auto) 2.3 x10^3/uL (1.0-4.8) Monocytes # (Auto) 1.1 x10^3/uL (0.0-1.1) Eosinophils # (Auto) 0.3 x10^3/uL (0.0-0.7) Basophils # (Auto) 0.1 x10^3/uL (0.0-0.2) Prothrombin Time 13.7 SEC (11.7-14.0) Prothromb Time International Ratio 1.1 (0.8-1.1) Sodium Level 141 mmol/L (136-145) Potassium Level 3.4 mmol/L (3.5-5.1) Chloride Level 104 mmol/L (98-107) Carbon Dioxide Level 28 mmol/L (21-32) Anion Gap 9 (6-14) Blood Urea Nitrogen 25 mg/dL (7-20) Creatinine 0.9 mg/dL (0.6-1.0) Estimated GFR (Cockcroft-Gault) 59.1 Glucose Level 136 mg/dL (70-99) Calcium Level 9.1 mg/dL (8.5-10.1) Triglycerides Level 73 mg/dL (0-150) Cholesterol Level 152 mg/dL (0-200) LDL Cholesterol, Calculated 88 mg/dL (0-100) VLDL Cholesterol, Calculated 15 mg/dL (0-40) Non-HDL Cholesterol Calculated 103 mg/dL (0-129) HDL Cholesterol 49 mg/dL (40-60) Cholesterol/HDL Ratio 3.1 Laboratory Tests Test 04/07/19 11:32 04/07/19 16:24 04/07/19 20:48 04/07/19 21:23 Glucose (Fingerstick) 118 mg/dL (70-99) 146 mg/dL (70-99) 50 mg/dL (70-99) 85 mg/dL (70-99) Test 04/07/19 23:37 04/08/19 04:49 04/08/19 06:45 04/08/19 07:27 Glucose (Fingerstick) 110 mg/dL (70-99) 133 mg/dL (70-99) 147 mg/dL (70-99) White Blood Count 11.4 x10^3/uL (4.0-11.0) Red Blood Count 4.18 x10^6/uL (3.50-5.40) Hemoglobin 12.4 g/dL (12.0-15.5) Hematocrit 37.6 % (36.0-47.0) Mean Corpuscular Volume 90 fL (79-100) Mean Corpuscular Hemoglobin 30 pg (25-35) Mean Corpuscular Hemoglobin Concent 33 g/dL (31-37) Red Cell Distribution Width 13.9 % (11.5-14.5) Platelet Count 278 x10^3/uL (140-400) Neutrophils (%) (Auto) 67 % (31-73) Lymphocytes (%) (Auto) 21 % (24-48) Monocytes (%) (Auto) 9 % (0-9) Eosinophils (%) (Auto) 2 % (0-3) Basophils (%) (Auto) 1 % (0-3) Neutrophils # (Auto) 7.6 x10^3/uL (1.8-7.7) Lymphocytes # (Auto) 2.3 x10^3/uL (1.0-4.8) Monocytes # (Auto) 1.1 x10^3/uL (0.0-1.1) Eosinophils # (Auto) 0.3 x10^3/uL (0.0-0.7) Basophils # (Auto) 0.1 x10^3/uL (0.0-0.2) Prothrombin Time 13.7 SEC (11.7-14.0) Prothromb Time International Ratio 1.1 (0.8-1.1) Sodium Level 141 mmol/L (136-145) Potassium Level 3.4 mmol/L (3.5-5.1) Chloride Level 104 mmol/L (98-107) Carbon Dioxide Level 28 mmol/L (21-32) Anion Gap 9 (6-14) Blood Urea Nitrogen 25 mg/dL (7-20) Creatinine 0.9 mg/dL (0.6-1.0) Estimated GFR (Cockcroft-Gault) 59.1 Glucose Level 136 mg/dL (70-99) Calcium Level 9.1 mg/dL (8.5-10.1) Triglycerides Level 73 mg/dL (0-150) Cholesterol Level 152 mg/dL (0-200) LDL Cholesterol, Calculated 88 mg/dL (0-100) VLDL Cholesterol, Calculated 15 mg/dL (0-40) Non-HDL Cholesterol Calculated 103 mg/dL (0-129) HDL Cholesterol 49 mg/dL (40-60) Cholesterol/HDL Ratio 3.1 Microbiology 04/05/19 Urine Culture - Final, Complete 04/05/19 Urine Culture Result 1 (JESS) - Final, Complete 04/05/19 Blood Culture - Preliminary, Resulted NO GROWTH AFTER 2 DAYS Medications Current Medications Sodium Chloride 1,000 ml @ 1,000 mls/hr 1X ONCE IV Last administered on 04/05at 18:20; Start 04/05/19 at 17:45; Stop 04/05/19 at 18:44; Status DC Ondansetron HCl (Zofran) 4 mg PRN Q8HRS PRN IV NAUSEA/VOMITING; Start 04/05/19 at 19:15; Stop 04/06/19 at 19:14; Status DC Fentanyl Citrate (Fentanyl 2ml Vial) 50 mcg PRN Q1HR PRN IV PAIN; Start 04/05/19 at 19:15; Stop 04/06/19 at 19:14; Status UNV Acetaminophen (Tylenol) 650 mg PRN Q4HRS PRN PO FEVER; Start 04/05/19 at 19:15; Stop 04/06/19 at 19:14; Status DC Aspirin (Cognitive Code Aspirin) 325 mg DAILY PO ; Start 04/06/19 at 09:00; Stop 04/06/19 at 11:02; Status DC Gabapentin (Neurontin) 300 mg BID PO Last administered on 04/07/19 09:03; Start 04/06/19 at 09:00 Insulin Human Lispro (HumaLOG) 5 units TIDWMEALS SQ Last administered on 04/07/19 17:56; Start 04/06/19 at 08:00 Lisinopril (Prinivil) 40 mg DAILY PO Last administered on 04/07/19 09:04; Start 04/06/19 at 09:00 Vitamin B Complex/ Vitamin C (Lizzette-Jose Carlos) 1 tab DAILY PO Last administered on 04/07/19 09:03; Start 04/06/19 at 09:00 Insulin Glargine (Lantus Syringe) 10 unit QHS SQ Last administered on 04/06/19at 23:52; Start 04/06/19 at 21:00 Magnesium Oxide (Magnesium Oxide) 400 mg DAILY PO Last administered on 04/07/19 09:03; Start 04/06/19 at 09:00 Fish Oil (Fish Oil) 1,000 mg DAILY PO Last administered on 04/07/19 09:03; Start 04/06/19 at 09:00 Aspirin (Abena Aspirin) 325 mg QHS PO ; Start 04/06/19 at 21:00; Stop 04/06/19 at 17:17; Status DC Ceftriaxone Sodium (Rocephin) 1 gm Q24H IVP Last administered on 04/07/19at 17:42; Start 04/06/19 at 17:00 Lactobacillus Rhamnosus (Culturelle) 1 cap BID PO Last administered on 04/07/19at 09:03; Start 04/06/19 at 21:00 Acetaminophen (Tylenol) 650 mg PRN Q6HRS PRN PO TEMP > 100.4F; Start 04/06/19 at 17:15 Acetaminophen (Tylenol Supp) 650 mg PRN Q4HRS PRN OR TEMP > 100.4F; Start 04/06/19 at 17:15 Aspirin (Ecotrin) 325 mg DAILYWBKFT PO Last administered on 04/07/19at 09:03; Start 04/07/19 at 08:00 Aspirin (Aspirin Rectal Supp) 300 mg PRN DAILY PRN OR IF UNABLE TO TAKE PO; Start 04/06/19 at 17:15 Iohexol (Omnipaque 300 Mg/ml) 75 ml 1X ONCE IV Last administered on 04/07/19at 12:15; Start 04/07/19 at 12:15; Stop 04/07/19 at 12:16; Status DC Info (CONTRAST GIVEN -- Rx MONITORING) 1 each PRN DAILY PRN MC SEE COMMENTS; Start 04/07/19 at 12:15; Stop 04/09/19 at 12:14 Sodium Chloride 1,000 ml @ 50 mls/hr Q20H IV Last administered on 04/07/19at 17:42; Start 04/07/19 at 16:00 Insulin Human Lispro (HumaLOG) 0-7 UNITS TIDWMEALS SQ ; Start 04/08/19 at 08:00 Dextrose (Dextrose 50%-Water Syringe) 12.5 gm PRN Q15MIN PRN IV SEE COMMENTS Last administered on 04/07/19at 20:53; Start 04/07/19 at 20:15 Ondansetron HCl (Zofran) 4 mg PRN Q6HRS PRN IVP NAUSEA/VOMITING; Start 04/07/19 at 20:15 Active Scripts Active [mac] 25 mg/ 5 ml 20 Ml PO 7 Days Macrobid 100 Mg Capsule (Nitrofurantoin Monohyd/M-Cryst) 100 Mg Capsule 1 Cap PO BID Reported Lantus Solostar (Insulin Glargine,Hum.rec.anlog) 100 Unit/1 Ml Insuln.pen 10 Unit SQ QHS Humalog (Insulin Lispro) 100 Unit/1 Ml Vial 5 Unit SQ TIDWMEALS Benazepril Hcl 40 Mg Tablet 40 Mg PO DAILY Fish Oil [place]-3 Softgel ([place]-3S/Dha/Epa/Fish Oil) 1 Each Capsule. 1 Each PO DAILY Renal Caps Softgel (Folic Acid/Vitamin B Comp W-C) 1 Mg Capsule 1 Mg PO DAILY Aspirin 325 Mg Tablet 325 Mg PO DAILY Magnesium (Magnesium Oxide) 400 Mg Capsule 500 Mg PO DAILY Gabapentin (Gabapentin) 300 Mg Capsule 300 Mg PO BID Vitals/I & O Vital Sign - Last 24 Hours 04/07/19 04/07/19 04/07/19 04/07/19 09:04 11:36 14:48 19:23 Temp 98.4 98.3 98.9 98.4 98.3 98.9 Pulse 80 77 73 84 Resp 17 18 20 B/P (MAP) 136/53 143/41 (75) 142/39 (73) 137/48 (77) Pulse Ox 99 95 94 O2 Delivery Room Air Room Air Room Air 04/07/19 04/07/19 04/08/19 04/08/19 20:00 23:14 03:00 08:00 Temp 98.2 98.1 98.2 98.2 98.1 98.2 Pulse 77 81 81 Resp 18 18 18 B/P (MAP) 147/51 (83) 144/53 (83) 168/59 (95) Pulse Ox 98 95 95 O2 Delivery Room Air Room Air Room Air Room Air 04/08/19 08:03 Pulse 90 Resp 16 Pulse Ox 94 O2 Delivery Room Air Intake and Output 04/07/19 04/07/19 04/08/19 14:59 22:59 06:59 Intake Total 500 ml 0 ml Balance 500 ml 0 ml Images CTA head - 1. Right cervical internal carotid artery is diffusely small in caliber compared with the left. There is plaque of the left carotid bulb and proximal left internal carotid artery without significant stenosis. 2. There are thyroid nodules. RAMON BENITES MD Apr 08, 2019 08:33
[2019-04-08] MEDS ORDERED: POTASSIUM CHLORIDE 20 MEQ TABLET.ER. PO ONE (08:45)
[2019-04-08] MEDS: FOLIC/VIT B COMP W-C (RENAL) TABLET. PO SCH (09:00)
[2019-04-08] MEDS: MAGNESIUM OXIDE 400 MG TABLET PO SCH (09:00)
[2019-04-08] MEDS: OMEGA-3 FATTY ACIDS/FISH OIL 1,000 MG CAPSULE. PO SCH (09:00)
[2019-04-08] MEDS: LACTOBACILLUS RHAMNOSUS GG 1 CAPSULE. PO SCH ×3 (09:00→20:39)
[2019-04-08] MEDS: GABAPENTIN 300 MG CAPSULE. PO SCH ×3 (09:00→20:39)
[2019-04-08] MEDS: LISINOPRIL 20 MG TABLET PO SCH (09:00)
--- NOTE | 2019-04-08 10:02 | NUR ---
This RN confirmed with patient's dtr Etta Kaye on phone she is aware of PICC line insertion for today, thought it was done last night and OK with procedure. Patient verb. understanding POC. Nursing concession supervisor Bri ESPINOSA notified [facility] and [facility] to be here to insert PICC. Patient remains NPO, will notify Dr. Yap as oral potassium ordered.
--- NOTE | 2019-04-08 10:35 | NUR ---
Oral potassium ordered, patient NPO. Will clarify order with Dr. Yap, see nursing communication. Lionel ESPINOSA [facility] here for patient PICC insertion now.
[2019-04-08] MEDS: IV NORMAL SALINE 1000ML BAG 1,000 ML IV SCH (11:24)
--- NOTE | 2019-04-08 11:29 | RAD ---
Examination: PORTABLE CHEST 1V History: PICC insertion. Partial retraction of the PICC. Comparison/Correlation: 04/08/2019 Portable Chest X-ray Exam performed at 10:50 AM Findings: Portable upright frontal view of the chest was obtained. Right-sided PICC is mildly retracted terminating overlying the superior vena cava-right atrium junction. No pneumothorax. Lung english are clear although motion left costophrenic angle is limited. No conclusive infiltrate or effusion. Impression: Right-sided PICC terminates overlying the superior vena cava-right atrium junction. No suspicious process. No definite infiltrate. Consider lateral view needed for further assessment. Electronically signed by: Figueroa Quintero MD (04/08/2019 11:27 AM) [facility]
--- NOTE | 2019-04-08 11:29 | RAD ---
Examination: PORTABLE CHEST 1V History: PICC line insertion Comparison/Correlation: 04/05/2019 Portable Chest X-ray Exam Findings: Portable upright frontal view chest was obtained. Right-sided PICC is noted terminating overlying the right atrium. Heart size and pulmonary vasculature are normal. No pneumothorax. Evaluation of the left costophrenic angle is limited due to overlapping soft tissues. No definite pleural effusion. No conclusive infiltrate. Osteopenia noted. Impression: Right-sided PICC overlying the right atrium. No acute process. No pneumothorax. Electronically signed by: Figueroa Quintero MD (04/08/2019 11:26 AM) [facility]
[2019-04-08] MEDS ORDERED: POTASSIUM CHL 20MEQ PREMIX 50 ML IV ONE (13:00)
--- NOTE | 2019-04-08 13:09 | PDOC ---
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 Occlusion of right middle cerebral artery Metabolic encephalopathy, cleared, urinary tract infection Diabetic peripheral neuropathy. Favorable lipid profile Plan Continue aspirin, no role for heparin, alteplase, interventional radiology Await echocardiogram Given patient's age and lipid panel results, I believe the risks outweigh the benefits of a statin Rehabilitation modalities, will need SNU Subjective No complaints Objective Vital Signs Date Time Temp Pulse Resp B/P (MAP) Pulse Ox O2 Delivery O2 Flow Rate FiO2 04/08/19 09:00 90 168/59 04/08/19 08:03 16 94 Room Air 04/08/19 08:00 98.2 98.2 Intake and Output 04/08/19 07:00 Intake Total 500 ml Balance 500 ml Intake Oral 500 ml # Voids 3 PHYSICAL EXAM Alert. Oriented to time, place and person. PERRL. EOMI. CN: Left central facial weakness, dysarthric speech Muscle tone: normal. Muscle strength: 4/5 on right DTR: 1+ Plantar reflex: flexor Gait: not examined in bed. Sensory exam: stocking loss. No cerebellar signs elicited. Review of Relevant I have reviewed the following items nathaniel (where applicable) has been applied. Labs Laboratory Tests Test 04/06/19 17:04 04/06/19 23:45 04/07/19 07:28 04/07/19 11:32 Glucose (Fingerstick) 160 mg/dL (70-99) 147 mg/dL (70-99) 146 mg/dL (70-99) 118 mg/dL (70-99) Test 04/07/19 16:24 04/07/19 20:48 04/07/19 21:23 04/07/19 23:37 Glucose (Fingerstick) 146 mg/dL (70-99) 50 mg/dL (70-99) 85 mg/dL (70-99) 110 mg/dL (70-99) Test 04/08/19 04:49 04/08/19 06:45 04/08/19 07:27 04/08/19 12:24 Glucose (Fingerstick) 133 mg/dL (70-99) 147 mg/dL (70-99) 136 mg/dL (70-99) White Blood Count 11.4 x10^3/uL (4.0-11.0) Red Blood Count 4.18 x10^6/uL (3.50-5.40) Hemoglobin 12.4 g/dL (12.0-15.5) Hematocrit 37.6 % (36.0-47.0) Mean Corpuscular Volume 90 fL (79-100) Mean Corpuscular Hemoglobin 30 pg (25-35) Mean Corpuscular Hemoglobin Concent 33 g/dL (31-37) Red Cell Distribution Width 13.9 % (11.5-14.5) Platelet Count 278 x10^3/uL (140-400) Neutrophils (%) (Auto) 67 % (31-73) Lymphocytes (%) (Auto) 21 % (24-48) Monocytes (%) (Auto) 9 % (0-9) Eosinophils (%) (Auto) 2 % (0-3) Basophils (%) (Auto) 1 % (0-3) Neutrophils # (Auto) 7.6 x10^3/uL (1.8-7.7) Lymphocytes # (Auto) 2.3 x10^3/uL (1.0-4.8) Monocytes # (Auto) 1.1 x10^3/uL (0.0-1.1) Eosinophils # (Auto) 0.3 x10^3/uL (0.0-0.7) Basophils # (Auto) 0.1 x10^3/uL (0.0-0.2) Prothrombin Time 13.7 SEC (11.7-14.0) Prothromb Time International Ratio 1.1 (0.8-1.1) Sodium Level 141 mmol/L (136-145) Potassium Level 3.4 mmol/L (3.5-5.1) Chloride Level 104 mmol/L (98-107) Carbon Dioxide Level 28 mmol/L (21-32) Anion Gap 9 (6-14) Blood Urea Nitrogen 25 mg/dL (7-20) Creatinine 0.9 mg/dL (0.6-1.0) Estimated GFR (Cockcroft-Gault) 59.1 Glucose Level 136 mg/dL (70-99) Calcium Level 9.1 mg/dL (8.5-10.1) Magnesium Level 2.4 mg/dL (1.8-2.4) Triglycerides Level 73 mg/dL (0-150) Cholesterol Level 152 mg/dL (0-200) LDL Cholesterol, Calculated 88 mg/dL (0-100) VLDL Cholesterol, Calculated 15 mg/dL (0-40) Non-HDL Cholesterol Calculated 103 mg/dL (0-129) HDL Cholesterol 49 mg/dL (40-60) Cholesterol/HDL Ratio 3.1 Laboratory Tests Test 04/07/19 16:24 04/07/19 20:48 04/07/19 21:23 04/07/19 23:37 Glucose (Fingerstick) 146 mg/dL (70-99) 50 mg/dL (70-99) 85 mg/dL (70-99) 110 mg/dL (70-99) Test 04/08/19 04:49 04/08/19 06:45 04/08/19 07:27 04/08/19 12:24 Glucose (Fingerstick) 133 mg/dL (70-99) 147 mg/dL (70-99) 136 mg/dL (70-99) White Blood Count 11.4 x10^3/uL (4.0-11.0) Red Blood Count 4.18 x10^6/uL (3.50-5.40) Hemoglobin 12.4 g/dL (12.0-15.5) Hematocrit 37.6 % (36.0-47.0) Mean Corpuscular Volume 90 fL (79-100) Mean Corpuscular Hemoglobin 30 pg (25-35) Mean Corpuscular Hemoglobin Concent 33 g/dL (31-37) Red Cell Distribution Width 13.9 % (11.5-14.5) Platelet Count 278 x10^3/uL (140-400) Neutrophils (%) (Auto) 67 % (31-73) Lymphocytes (%) (Auto) 21 % (24-48) Monocytes (%) (Auto) 9 % (0-9) Eosinophils (%) (Auto) 2 % (0-3) Basophils (%) (Auto) 1 % (0-3) Neutrophils # (Auto) 7.6 x10^3/uL (1.8-7.7) Lymphocytes # (Auto) 2.3 x10^3/uL (1.0-4.8) Monocytes # (Auto) 1.1 x10^3/uL (0.0-1.1) Eosinophils # (Auto) 0.3 x10^3/uL (0.0-0.7) Basophils # (Auto) 0.1 x10^3/uL (0.0-0.2) Prothrombin Time 13.7 SEC (11.7-14.0) Prothromb Time International Ratio 1.1 (0.8-1.1) Sodium Level 141 mmol/L (136-145) Potassium Level 3.4 mmol/L (3.5-5.1) Chloride Level 104 mmol/L (98-107) Carbon Dioxide Level 28 mmol/L (21-32) Anion Gap 9 (6-14) Blood Urea Nitrogen 25 mg/dL (7-20) Creatinine 0.9 mg/dL (0.6-1.0) Estimated GFR (Cockcroft-Gault) 59.1 Glucose Level 136 mg/dL (70-99) Calcium Level 9.1 mg/dL (8.5-10.1) Magnesium Level 2.4 mg/dL (1.8-2.4) Triglycerides Level 73 mg/dL (0-150) Cholesterol Level 152 mg/dL (0-200) LDL Cholesterol, Calculated 88 mg/dL (0-100) VLDL Cholesterol, Calculated 15 mg/dL (0-40) Non-HDL Cholesterol Calculated 103 mg/dL (0-129) HDL Cholesterol 49 mg/dL (40-60) Cholesterol/HDL Ratio 3.1 Microbiology 04/05/19 Urine Culture - Final, Complete 04/05/19 Urine Culture Result 1 (JESS) - Final, Complete 04/05/19 Blood Culture - Preliminary, Resulted NO GROWTH AFTER 2 DAYS Medications Current Medications Sodium Chloride 1,000 ml @ 1,000 mls/hr 1X ONCE IV Last administered on 04/05/19at 18:20; Start 04/05/19 at 17:45; Stop 04/05/19 at 18:44; Status DC Ondansetron HCl (Zofran) 4 mg PRN Q8HRS PRN IV NAUSEA/VOMITING; Start 04/05/19 at 19:15; Stop 04/06/19 at 19:14; Status DC Fentanyl Citrate (Fentanyl 2ml Vial) 50 mcg PRN Q1HR PRN IV PAIN; Start 04/05/19 at 19:15; Stop 04/06/19 at 19:14; Status UNV Acetaminophen (Tylenol) 650 mg PRN Q4HRS PRN PO FEVER; Start 04/05/19 at 19:15; Stop 04/06/19 at 19:14; Status DC Aspirin (Abena Aspirin) 325 mg DAILY PO ; Start 04/06/19 at 09:00; Stop 04/06/19 at 11:02; Status DC Gabapentin (Neurontin) 300 mg BID PO Last administered on 04/07/19 09:03; Start 04/06/19 at 09:00 Insulin Human Lispro (HumaLOG) 5 units TIDWMEALS SQ Last administered on 04/07/19 17:56; Start 04/06/19 at 08:00 Lisinopril (Prinivil) 40 mg DAILY PO Last administered on 04/07/19 09:04; Start 04/06/19 at 09:00 Vitamin B Complex/ Vitamin C (Lizzette-Jose Carlos) 1 tab DAILY PO Last administered on 04/07/19 09:03; Start 04/06/19 at 09:00 Insulin Glargine (Lantus Syringe) 10 unit QHS SQ Last administered on 04/06/19 23:52; Start 04/06/19 at 21:00 Magnesium Oxide (Magnesium Oxide) 400 mg DAILY PO Last administered on 04/07/19 09:03; Start 04/06/19 at 09:00 Fish Oil (Fish Oil) 1,000 mg DAILY PO Last administered on 04/07/19 09:03; Start 04/06/19 at 09:00 Aspirin (Abena Aspirin) 325 mg QHS PO ; Start 04/06/19 at 21:00; Stop 04/06/19 at 17:17; Status DC Ceftriaxone Sodium (Rocephin) 1 gm Q24H IVP Last administered on 04/07/19at 17 :42; Start 04/06/19 at 17:00 Lactobacillus Rhamnosus (Culturelle) 1 cap BID PO Last administered on 04/07/19 09:03; Start 04/06/19 at 21:00 Acetaminophen (Tylenol) 650 mg PRN Q6HRS PRN PO TEMP > 100.4F; Start 04/06/19 at 17:15 Acetaminophen (Tylenol Supp) 650 mg PRN Q4HRS PRN TX TEMP > 100.4F; Start 04/06/19 at 17:15 Aspirin (Ecotrin) 325 mg DAILYWBKFT PO Last administered on 04/07/19at 09:03; Start 04/07/19 at 08:00 Aspirin (Aspirin Rectal Supp) 300 mg PRN DAILY PRN TX IF UNABLE TO TAKE PO Last administered on 04/08/19at 09:34; Start 04/06/19 at 17:15 Iohexol (Omnipaque 300 Mg/ml) 75 ml 1X ONCE IV Last administered on 04/07/19at 12:15; Start 04/07/19 at 12:15; Stop 04/07/19 at 12:16; Status DC Info (CONTRAST GIVEN -- Rx MONITORING) 1 each PRN DAILY PRN MC SEE COMMENTS; Start 04/07/19 at 12:15; Stop 04/09/19 at 12:14 Sodium Chloride 1,000 ml @ 50 mls/hr Q20H IV Last administered on 04/08/19at 11:24; Start 04/07/19 at 16:00 Insulin Human Lispro (HumaLOG) 0-7 UNITS TIDWMEALS SQ ; Start 04/08/19 at 08:00 Dextrose (Dextrose 50%-Water Syringe) 12.5 gm PRN Q15MIN PRN IV SEE COMMENTS Last administered on 04/07/19at 20:53; Start 04/07/19 at 20:15 Ondansetron HCl (Zofran) 4 mg PRN Q6HRS PRN IVP NAUSEA/VOMITING; Start 04/07/19 at 20:15 Potassium Chloride (Klor-Con) 40 meq 1X ONCE PO ; Start 04/08/19 at 08:45; Stop 04/08/19 at 08:46; Status DC Potassium Chloride/Water 50 ml @ 50 mls/hr 1X ONCE IV ; Start 04/08/19 at 13:00; Stop 04/08/19 at 13:59 Active Scripts Active [mac] 25 mg/ 5 ml 20 Ml PO 7 Days Macrobid 100 Mg Capsule (Nitrofurantoin Monohyd/M-Cryst) 100 Mg Capsule 1 Cap PO BID Reported Lantus Solostar (Insulin Glargine,Hum.rec.anlog) 100 Unit/1 Ml Insuln.pen 10 Unit SQ QHS Humalog (Insulin Lispro) 100 Unit/1 Ml Vial 5 Unit SQ TIDWMEALS Benazepril Hcl 40 Mg Tablet 40 Mg PO DAILY Fish Oil [place]-3 Softgel ([place]-3S/Dha/Epa/Fish Oil) 1 Each Capsule. 1 Each PO DAILY Renal Caps Softgel (Folic Acid/Vitamin B Comp W-C) 1 Mg Capsule 1 Mg PO DAILY Aspirin 325 Mg Tablet 325 Mg PO DAILY Magnesium (Magnesium Oxide) 400 Mg Capsule 500 Mg PO DAILY Gabapentin (Gabapentin) 300 Mg Capsule 300 Mg PO BID Vitals/I & O Vital Sign - Last 24 Hours 04/07/19 04/07/19 04/07/19 04/07/19 14:48 19:23 20:00 23:14 Temp 98.3 98.9 98.2 98.3 98.9 98.2 Pulse 73 84 77 Resp 18 20 18 B/P (MAP) 142/39 (73) 137/48 (77) 147/51 (83) Pulse Ox 95 94 98 O2 Delivery Room Air Room Air Room Air Room Air 04/08/19 04/08/19 04/08/19 04/08/19 03:00 08:00 08:00 08:03 Temp 98.1 98.2 98.1 98.2 Pulse 81 81 90 Resp 18 18 16 B/P (MAP) 144/53 (83) 168/59 (95) Pulse Ox 95 95 94 O2 Delivery Room Air Room Air Room Air Room Air 04/08/19 09:00 Pulse 90 B/P (MAP) 168/59 Intake and Output 04/07/19 04/07/19 04/08/19 15:00 23:00 07:00 Intake Total 500 ml 0 ml Balance 500 ml 0 ml Images CTA head and neck History: Neurological change, abnormal MRI Technique: After bolus of intravenous contrast, volumetric CT data acquisition was acquired of the head and neck. Multiplanar reconstruction images to include MIP and 3-D reconstruction images are submitted. Exposure: One or more of the following individualized dose reduction techniques were utilized for this examination: 1. Automated exposure control 2. Adjustment of the mA and/or kV according to patient size 3. Use of iterative reconstruction technique. Comparison: MRI brain exam April 06, 2019 Any determination of stenosis is based on NASCET criteria. CTA head: Findings: There is motion degradation. There is more abrupt occlusion of the right M1 segment distally. There is some reconstitution of right insular branches. There is calcified plaque of the bilateral carotid siphons, difficult to accurately quantify degree of narrowing due to calcified plaque, likely more significant narrowing of the right cavernous internal carotid artery. There is poor opacification of the petrous segments of the internal carotid arteries bilaterally during exam, limited characterization. There is likely at least moderate narrowing of the left cavernous internal carotid artery by calcified plaque. Both vertebral arteries constitute the basilar artery. There is visualization of segments of bilateral PICAs, AICAs not well-visualized on this motion degraded exam. There is mild calcified plaque of the proximal basilar artery without significant stenosis, other mild wall irregularity of the basilar artery. There is visualization of segments of bilateral superior cerebellar arteries. No significant posterior communicating arteries are visualized on either side. Impression: 1. There is abrupt occlusion of the distal right M1 segment. There is some reconstitution of right insular branches. 2. There is calcified plaque of the carotid siphons bilaterally with degree of narrowing poorly characterized although probably more significant narrowing of the right cavernous internal carotid artery. There is poor visualization of the petrous internal carotid arteries bilaterally during exam for accurate evaluation. Neck CTA: Findings: There is motion degradation. There are normal anatomic origins of the great vessels. Vertebral arteries are patent bilaterally without significant stenosis or dissection flap. There is calcified plaque of the left carotid bulb and proximal left internal carotid artery, maximal luminal diameter reduction of the left internal carotid artery proximally less than 50%. Maximal luminal reduction of the left carotid bulb is also less than 50%. There is some medial deviation of the right carotid artery into the retropharyngeal region. There is calcified and noncalcified plaque of the right carotid bulbs, also some scattered plaque of the right cervical internal carotid artery. Right cervical internal carotid artery is diffusely smaller in caliber compared with the left. No discrete dissection flap is confidently identified. There is degenerative disc disease greatest C5-6. There is grade 1 anterior spondylolisthesis C4-5 and to lesser degree C3-4, multilevel cervical facet degenerative change. There is likely mild central canal stenosis at C5-6. There is incomplete unification of posterior arch of C1 on developmental basis. There are bilateral thyroid nodules, on the left about 2.2 cm and on the right probably about 2 cm with some associated calcifications. Impression: 1. Right cervical internal carotid artery is diffusely small in caliber compared with the left. There is plaque of the left carotid bulb and proximal left internal carotid artery without significant stenosis. 2. There are thyroid nodules. CT HEAD WO CONTRAST, 04/07 History: Neurological change Comparison: MRI brain exam 04/06/[address] exam 04/05/2019 Technique: Noncontrast CT imaging was performed of the head. Exposure: One or more of the following individualized dose reduction techniques were utilized for this examination: 1. Automated exposure control 2. Adjustment of the mA and/or kV according to patient size 3. Use of iterative reconstruction technique. Findings: There is motion degradation. No convincing acute intracranial hemorrhage is identified. There is again low density extending to the cortical surface centered in the right temporal lobe. There is a somewhat greater degree of ill-defined low-density of the right frontal parietal lobes also at which there was degree of restricted diffusion on MRI brain exam. There is again other scattered ill-defined low-density of the supratentorial parenchyma bilaterally. There is no new midline shift. Ventricular size is stable, within normal limits. There are elier bullosa greater in size on the right. There is patchy minimal ethmoid air cell mucosal thickening. Mastoid air cells are overall aerated. Impression: 1. Exam is degraded by motion. There is no convincing evidence of acute intracranial hemorrhage. There is again focus of lower density extending to the cortical surface centered in the right temporal lobe, evidence of recent infarct as demonstrated on MRI brain exam. There is a ill-defined low-density of the right cerebral hemisphere overall somewhat progressed comparing with previous CT exam, also other areas of recent ischemia as seen on MRI brain exam. MRI would more accurately quantify degree of true change. JUDY TEJEDA MD Apr 08, 2019 13:09
[2019-04-08 15:40] VITALS: BP 160/53
[2019-04-08] MEDS: cefTRIAXone IV Push 1 GM VIAL. IVP SCH (17:11)
[2019-04-08 19:10] VITALS: BP 187/55
[2019-04-08] MEDS: AMINO AC 3%/ELECTROLYTE/GLYCER 1,000 ML IV SCH (21:38)
[2019-04-08] MEDS: INSULIN GLARGINE SYRINGE. SQ SCH (21:40)
[2019-04-08 23:10] VITALS: BP 116/56
[2019-04-09 03:10] VITALS: BP 154/61
[2019-04-09 07:00] VITALS: BP 154/60
[2019-04-09] MEDS: INSULIN LISPRO 300 UNITS/3 ML VIAL. SQ SCH ×6 (08:00→17:00)
[2019-04-09] MEDS: IV NORMAL SALINE 1000ML BAG 1,000 ML IV SCH (08:00)
[2019-04-09] MEDS: ASPIRIN ENTERIC COATED 325 MG TABLET.DR. PO SCH (08:00)
[2019-04-09] MEDS: LACTOBACILLUS RHAMNOSUS GG 1 CAPSULE. PO SCH ×2 (09:00→21:00)
[2019-04-09] MEDS: MAGNESIUM OXIDE 400 MG TABLET PO SCH (09:00)
[2019-04-09] MEDS: GABAPENTIN 300 MG CAPSULE. PO SCH ×2 (09:00→21:00)
[2019-04-09] MEDS: LISINOPRIL 20 MG TABLET PO SCH (09:00)
[2019-04-09] MEDS: OMEGA-3 FATTY ACIDS/FISH OIL 1,000 MG CAPSULE. PO SCH (09:00)
[2019-04-09] MEDS: FOLIC/VIT B COMP W-C (RENAL) TABLET. PO SCH (09:00)
[2019-04-09] MEDS: AMINO AC 3%/ELECTROLYTE/GLYCER 1,000 ML IV SCH ×2 (10:33→23:00)
[2019-04-09] MEDS ORDERED: BARIUM SULFATE 40% (APPLE) 148 GM PWD. PO ONE (11:00)
--- NOTE | 2019-04-09 11:22 | PDOC2 ---
GI CONSULT Reason For Consult: on standby for possible PEG, s/p CVA HPI: HPI: Pleasant 88 y/o female admitted 04/05 w/ CVA. Failed bedside swallow eval and we are asked to see in case of need for PEG placement. Currently NPO on PPN and ASA suppository. History from patient and daughter. Denies reflux/heartburn, previous issues w/ dysphagia, n/v, abd pain, diarrhea, constipation, hematochezia, and melena. No previous EGD. Colonoscopy years ago. H/o colon resection w/ Dr. Johnson for what sounds like diverticulitis/abscess. No GB, liver, pancreas, or PUD history. CT A/P in 2018 noted moderate sliding hiatal hernia, anastomotic sutures at rectosigmoid colon, and sigmoid diverticulosis. PMH: PMH: HTN, DM, peripheral neuropathy, OA, UTI, OA, DDD, diverticulosis, hiatal hernia tonsillectomy, partial hysterectomy, colon resection and appendectomy FH: Family History: No pertinent hx Social History: Smoke: No ALCOHOL: none Drugs: None ROS: GEN: Denies fevers, chills, sweats HEENT: Denies blurred vision, sore throat CV: Denies chest pain RESP: Denies shortness of air, cough GI: Per HPI : Denies hematuria, dysuria ENDO: Denies weight changes NEURO: Denies confusion, dizziness MSK: left-sided weakness SKIN: Denies jaundice, pruritus Vitals: Vitals: Vital Signs Date Time Temp Pulse Resp B/P (MAP) Pulse Ox O2 Delivery O2 Flow Rate FiO2 04/09/19 08:00 Room Air 04/09/19 07:00 98.1 78 19 154/60 (91) 96 98.1 Labs: Labs: Laboratory Tests Test 04/08/19 12:24 04/08/19 16:48 04/08/19 21:00 04/09/19 07:37 Glucose (Fingerstick) 136 mg/dL 152 mg/dL 152 mg/dL 187 mg/dL URINE CULTURE Final Final report URINE CULTURE RES 1 Final Comment Mixed urogenital judy BLOOD CULTURE Preliminary NO GROWTH AFTER 3 DAYS Allergies: Coded Allergies: Tetracyclines (Verified Allergy, Intermediate, 03/27/16) amitriptyline (Verified Allergy, Intermediate, 03/27/16) codeine (Verified Allergy, Intermediate, 03/27/16) coffee (Coffea arabica) (Verified Allergy, Intermediate, 03/27/16) erythromycin base (Verified Allergy, Intermediate, 03/27/16) meperidine (Verified Allergy, Intermediate, 03/27/16) morphine (Verified Allergy, Intermediate, 03/27/16) prednisone (Verified Allergy, Intermediate, 03/27/16) sucralose (Verified Allergy, Intermediate, 03/27/16) Medications: Current Medications Medications (Trade) Dose Ordered Sig/Ester Route PRN Reason Start Time Stop Time Status Last Admin Dose Admin Potassium Chloride/Water 50 ml @ 50 mls/hr 1X ONCE IV 04/08/19 13:00 04/08/19 13:59 DC 04/08/19 13:16 Amino Acids/ Glycerin/ Electrolytes 1,000 ml @ 80 mls/hr [id number] IV 04/08/19 21:30 04/09/19 10:33 Imaging: Imaging: CXR 04/08 Impression: Right-sided PICC terminates overlying the superior vena cava-right atrium junction. No suspicious process. No definite infiltrate. Consider lateral view needed for further assessment. TAX STAFF ACCOUNTANT Bedside Swallow Eval 04/07 Bedside swallow eval completed. Dtrs Etta and Janell not in rm at time of eval. IMPRESSIONS: Moderate oropharyngeal dysphagia w/poss aspiration across tested consistencies as evidenced by subtle, wet phonation p.swallow. S/s aspiration appeared to occur more frequently when pharyngeal swallow was delayed in initiation. Pt may benefit from videoswallow to more clearly define swallow physiology and contribution of timing vs weakness to observed s/s at bedside. This may also be helpful in delineating severity of dysphagia and determining potential for resuming po intake. RECOMMENDATIONS: NPO meds and nutrition. Oral care w/oral care kit to reduce risk of aspiration related complications. TAX STAFF ACCOUNTANT to follow-up. Head/Neck CTA 04/07 Impression: 1. There is abrupt occlusion of the distal right M1 segment. There is some reconstitution of right insular branches. 2. There is calcified plaque of the carotid siphons bilaterally with degree of narrowing poorly characterized although probably more significant narrowing of the right cavernous internal carotid artery. There is poor visualization of the petrous internal carotid arteries bilaterally during exam for accurate evaluation. Impression: 1. Right cervical internal carotid artery is diffusely small in caliber compared with the left. There is plaque of the left carotid bulb and proximal left internal carotid artery without significant stenosis. 2. There are thyroid nodules. Head CT 04/07 Impression: 1. Exam is degraded by motion. There is no convincing evidence of acute intracranial hemorrhage. There is again focus of lower density extending to the cortical surface centered in the right temporal lobe, evidence of recent infarct as demonstrated on MRI brain exam. There is a ill-defined low-density of the right cerebral hemisphere overall somewhat progressed comparing with previous CT exam, also other areas of recent ischemia as seen on MRI brain exam. MRI would more accurately quantify degree of true change. Carotid Doppler 04/06 Impression: 1. There is no evidence of a hemodynamically significant stenosis although reportedly right internal carotid artery was not completely visualized and uncertain if possible collateral vessel instead of citizen [place] vessel. CTA imaging may be beneficial for clarification of findings given the abnormal MRI findings. Brain MRI 04/06 Impression: Acute or subacute infarcts of at least 24 hours old (given the edema along with the restricted diffusion) involving the posterior right temporal lobe and the right parietal lobe and the posterior right frontal lobe.. In addition, there is loss of normal signal void within the right internal carotid artery. This may be seen with slow flow or occlusion of the right internal carotid artery. LE US 04/05 IMPRESSION: No acute DVT in the left lower extremity. Calf veins not well visualized. Head CT 04/05 IMPRESSION: Hypodense area in the posterior right parietal lobe, may represent an area of subacute ischemia. MRI is recommended for further evaluation. PE: GEN: NAD - returned to room from walking w/ therapy HEENT: Atraumatic, PERRL LUNGS: CTAB HEART: RRR ABD: NABS, S/ND/NT EXTREMITY: No edema SKIN: No rashes, no jaundice NEURO/PSYCH: A & O 3, RUE weakness A/P: A/P: Dysphagia s/p CVA ?UTI Hiatal hernia - on past imaging CRC screen - had colonoscopy years ago H/o colon resection for diverticulitis/abscess -- Will follow, await TAX STAFF ACCOUNTANT follow-up. Can discuss PEG procedure/possible risks if indicated. GRISEL WINSTON Apr 09, 2019 11:22
--- NOTE | 2019-04-09 11:38 | PDOC ---
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 Occlusion of right middle cerebral artery Metabolic encephalopathy, cleared, urinary tract infection Diabetic peripheral neuropathy. Favorable lipid profile Dysphagia Plan Consulted G.I. to be on standby for PEG Continue aspirin, no role for heparin, alteplase, interventional radiology Await echocardiogram Given patient's age and lipid panel results, I believe the risks outweigh the benefits of a statin Rehabilitation modalities, will need SNU Discussed with patient's daughter who was concerned patient did not receive alteplase, I told her that with the unknown onset of the symptoms we would not have given this. Subjective No complaints, want some tea Objective Vital Signs Date Time Temp Pulse Resp B/P (MAP) Pulse Ox O2 Delivery O2 Flow Rate FiO2 04/09/19 08:00 Room Air 04/09/19 07:00 98.1 78 19 154/60 (91) 96 98.1 Intake and Output 04/09/19 06:59 Intake Total 0 ml Output Total 650 ml Balance -650 ml Intake Oral 0 ml Output Urine Total 650 ml # Voids 3 PHYSICAL EXAM Alert. Oriented to time, place and person. PERRL. EOMI. CN: Left central facial weakness, dysarthric speech Muscle tone: normal. Muscle strength: 4/5 on left DTR: 1+ Plantar reflex: flexor Gait: not examined in bed. Sensory exam: stocking loss. No cerebellar signs elicited. Review of Relevant I have reviewed the following items nathaniel (where applicable) has been applied. Labs Laboratory Tests Test 04/07/19 16:24 04/07/19 20:48 04/07/19 21:23 04/07/19 23:37 Glucose (Fingerstick) 146 mg/dL (70-99) 50 mg/dL (70-99) 85 mg/dL (70-99) 110 mg/dL (70-99) Test 04/08/19 04:49 04/08/19 06:45 04/08/19 07:27 04/08/19 12:24 Glucose (Fingerstick) 133 mg/dL (70-99) 147 mg/dL (70-99) 136 mg/dL (70-99) White Blood Count 11.4 x10^3/uL (4.0-11.0) Red Blood Count 4.18 x10^6/uL (3.50-5.40) Hemoglobin 12.4 g/dL (12.0-15.5) Hematocrit 37.6 % (36.0-47.0) Mean Corpuscular Volume 90 fL (79-100) Mean Corpuscular Hemoglobin 30 pg (25-35) Mean Corpuscular Hemoglobin Concent 33 g/dL (31-37) Red Cell Distribution Width 13.9 % (11.5-14.5) Platelet Count 278 x10^3/uL (140-400) Neutrophils (%) (Auto) 67 % (31-73) Lymphocytes (%) (Auto) 21 % (24-48) Monocytes (%) (Auto) 9 % (0-9) Eosinophils (%) (Auto) 2 % (0-3) Basophils (%) (Auto) 1 % (0-3) Neutrophils # (Auto) 7.6 x10^3/uL (1.8-7.7) Lymphocytes # (Auto) 2.3 x10^3/uL (1.0-4.8) Monocytes # (Auto) 1.1 x10^3/uL (0.0-1.1) Eosinophils # (Auto) 0.3 x10^3/uL (0.0-0.7) Basophils # (Auto) 0.1 x10^3/uL (0.0-0.2) Prothrombin Time 13.7 SEC (11.7-14.0) Prothromb Time International Ratio 1.1 (0.8-1.1) Sodium Level 141 mmol/L (136-145) Potassium Level 3.4 mmol/L (3.5-5.1) Chloride Level 104 mmol/L (98-107) Carbon Dioxide Level 28 mmol/L (21-32) Anion Gap 9 (6-14) Blood Urea Nitrogen 25 mg/dL (7-20) Creatinine 0.9 mg/dL (0.6-1.0) Estimated GFR (Cockcroft-Gault) 59.1 Glucose Level 136 mg/dL (70-99) Calcium Level 9.1 mg/dL (8.5-10.1) Magnesium Level 2.4 mg/dL (1.8-2.4) Triglycerides Level 73 mg/dL (0-150) Cholesterol Level 152 mg/dL (0-200) LDL Cholesterol, Calculated 88 mg/dL (0-100) VLDL Cholesterol, Calculated 15 mg/dL (0-40) Non-HDL Cholesterol Calculated 103 mg/dL (0-129) HDL Cholesterol 49 mg/dL (40-60) Cholesterol/HDL Ratio 3.1 Test 04/08/19 16:48 04/08/19 21:00 04/09/19 07:37 Glucose (Fingerstick) 152 mg/dL (70-99) 152 mg/dL (70-99) 187 mg/dL (70-99) Laboratory Tests Test 04/08/19 12:24 04/08/19 16:48 04/08/19 21:00 04/09/19 07:37 Glucose (Fingerstick) 136 mg/dL (70-99) 152 mg/dL (70-99) 152 mg/dL (70-99) 187 mg/dL (70-99) Microbiology 04/05/19 Urine Culture - Final, Complete 04/05/19 Urine Culture Result 1 (JESS) - Final, Complete 04/05/19 Blood Culture - Preliminary, Resulted NO GROWTH AFTER 3 DAYS Medications Current Medications Sodium Chloride 1,000 ml @ 1,000 mls/hr 1X ONCE IV Last administered on 04/05/19at 18:20; Start 04/05/19 at 17:45; Stop 04/05/19 at 18:44; Status DC Ondansetron HCl (Zofran) 4 mg PRN Q8HRS PRN IV NAUSEA/VOMITING; Start 04/05/19 at 19:15; Stop 04/06/19 at 19:14; Status DC Fentanyl Citrate (Fentanyl 2ml Vial) 50 mcg PRN Q1HR PRN IV PAIN; Start 04/05 at 19:15; Stop 04/06/19 at 19:14; Status UNV Acetaminophen (Tylenol) 650 mg PRN Q4HRS PRN PO FEVER; Start 04/05/19 at 19 :15; Stop 04/06/19 at 19:14; Status DC Aspirin (Abena Aspirin) 325 mg DAILY PO ; Start 04/06/19 at 09:00; Stop 04/06/19 at 11:02; Status DC Gabapentin (Neurontin) 300 mg BID PO Last administered on 04/07/19at 09:03; Start 04/06/19 at 09:00 Insulin Human Lispro (HumaLOG) 5 units TIDWMEALS SQ Last administered on 04/09/19 08:33; Start 04/06/19 at 08:00 Lisinopril (Prinivil) 40 mg DAILY PO Last administered on 04/07/19 09:04; Start 04/06/19 at 09:00 Vitamin B Complex/ Vitamin C (Lizzette-Jose Carlos) 1 tab DAILY PO Last administered on 04/07/19 09:03; Start 04/06/19 at 09:00 Insulin Glargine (Lantus Syringe) 10 unit QHS SQ Last administered on 04/08/19 21:40; Start 04/06/19 at 21:00 Magnesium Oxide (Magnesium Oxide) 400 mg DAILY PO Last administered on 04/07/19 09:03; Start 04/06/19 at 09:00 Fish Oil (Fish Oil) 1,000 mg DAILY PO Last administered on 04/07/19 09:03; S tart 04/06/19 at 09:00 Aspirin (Abena Aspirin) 325 mg QHS PO ; Start 04/06/19 at 21:00; Stop 04/06/19 at 17:17; Status DC Ceftriaxone Sodium (Rocephin) 1 gm Q24H IVP Last administered on 04/08/19 17:11; Start 04/06/19 at 17:00 Lactobacillus Rhamnosus (Culturelle) 1 cap BID PO Last administered on 04/07/19 09:03; Start 04/06/19 at 21:00 Acetaminophen (Tylenol) 650 mg PRN Q6HRS PRN PO TEMP > 100.4F; Start 04/06/19 at 17:15 Acetaminophen (Tylenol Supp) 650 mg PRN Q4HRS PRN LA TEMP > 100.4F; Start 04/06/19 at 17:15 Aspirin (Ecotrin) 325 mg DAILYWBKFT PO Last administered on 04/07/19 09:03; Start 04/07/19 at 08:00 Aspirin (Aspirin Rectal Supp) 300 mg PRN DAILY PRN LA IF UNABLE TO TAKE PO Last administered on 04/08/19 09:34; Start 04/06/19 at 17:15 Iohexol (Omnipaque 300 Mg/ml) 75 ml 1X ONCE IV Last administered on 04/07/19at 12:15; Start 04/07/19 at 12:15; Stop 04/07/19 at 12:16; Status DC Info (CONTRAST GIVEN -- Rx MONITORING) 1 each PRN DAILY PRN MC SEE COMMENTS; Start 04/07/19 at 12:15; Stop 04/09/19 at 12:14 Sodium Chloride 1,000 ml @ 50 mls/hr Q20H IV Last administered on 04/08/19at 11:24; Start 04/07/19 at 16:00 Insulin Human Lispro (HumaLOG) 0-7 UNITS TIDWMEALS SQ ; Start 04/08/19 at 08:00 Dextrose (Dextrose 50%-Water Syringe) 12.5 gm PRN Q15MIN PRN IV SEE COMMENTS Last administered on 04/07/19at 20:53; Start 04/07/19 at 20:15 Ondansetron HCl (Zofran) 4 mg PRN Q6HRS PRN IVP NAUSEA/VOMITING; Start 04/07/19 at 20:15 Potassium Chloride (Klor-Con) 40 meq 1X ONCE PO ; Start 04/08/19 at 08:45; Stop 04/08/19 at 08:46; Status DC Potassium Chloride/Water 50 ml @ 50 mls/hr 1X ONCE IV Last administered on 04/08/19at 13:16; Start 04/08/19 at 13:00; Stop 04/08/19 at 13:59; Status DC Amino Acids/ Glycerin/ Electrolytes 1,000 ml @ 80 mls/hr [id number] IV Last administered on 04/09/19at 10:33; Start 04/08/19 at 21:30 Barium Sulfate (Varibar Thin Liquid Apple) 148 gm 1X ONCE PO ; Start 04/09/19 at 11:00; Stop 04/09/19 at 11:01; Status DC Active Scripts Active [mac] 25 mg/ 5 ml 20 Ml PO 7 Days Macrobid 100 Mg Capsule (Nitrofurantoin Monohyd/M-Cryst) 100 Mg Capsule 1 Cap PO BID Reported Lantus Solostar (Insulin Glargine,Hum.rec.anlog) 100 Unit/1 Ml Insuln.pen 10 Unit SQ QHS Humalog (Insulin Lispro) 100 Unit/1 Ml Vial 5 Unit SQ TIDWMEALS Benazepril Hcl 40 Mg Tablet 40 Mg PO DAILY Fish Oil [place]-3 Softgel ([place]-3S/Dha/Epa/Fish Oil) 1 Each Capsule. 1 Each PO DAILY Renal Caps Softgel (Folic Acid/Vitamin B Comp W-C) 1 Mg Capsule 1 Mg PO DAILY Aspirin 325 Mg Tablet 325 Mg PO DAILY Magnesium (Magnesium Oxide) 400 Mg Capsule 500 Mg PO DAILY Gabapentin (Gabapentin) 300 Mg Capsule 300 Mg PO BID Vitals/I & O Vital Sign - Last 24 Hours 04/08/19 04/08/19 04/08/19 04/08/19 15:40 19:10 20:00 23:10 Temp 98.2 99.1 97.6 98.2 99.1 97.6 Pulse 92 94 90 Resp B/P (MAP) 160/53 (88) 187/55 (99) 116/56 (76) Pulse Ox 96 97 95 O2 Delivery Room Air Room Air Room Air Room Air 04/09/19 04/09/19 04/09/19 03:10 07:00 08:00 Temp 99.6 98.1 99.6 98.1 Pulse 89 78 Resp B/P (MAP) 154/61 (92) 154/60 (91) Pulse Ox 94 96 O2 Delivery Room Air Room Air Room Air Intake and Output 04/08/19 04/08/19 04/09/19 14:59 22:59 06:59 Intake Total 0 ml 0 ml 0 ml Output Total 500 ml 150 ml Balance -500 ml -150 ml 0 ml JUDY TEJEDA MD Apr 09, 2019 11:38
--- NOTE | 2019-04-09 11:54 | PDOC ---
PROGRESS NOTES Chief Complaint Chief Complaint Encephalopathy, metabolic, no acute CVA UTI Dysphagia, PErsistent POOR PO - on tpn GEn weakness- SNU candidated hypokalemia, corrected foot wounds, stable History of Present Illness History of Present Illness Still < 50% poor PO intake on dysphagia diet Tpn running ONly pPLace can take TPN BEing screened for [facility] but they will not take TPN or yifan Otherwise medical issues cleared, can take PO meds STill full code on chart, no fam member at bedside that i can discuss code status PLAN: MAy get palliative re code status and goals of po intake JESUS nuñez on SNU screen- dw her and she aware of my plan/goal of care Vitals Vitals Vital Signs Date Time Temp Pulse Resp B/P (MAP) Pulse Ox O2 Delivery O2 Flow Rate FiO2 04/09/19 08:00 Room Air 04/09/19 07:00 98.1 78 19 154/60 (91) 96 98.1 Physical Exam Physical Exam VITALS: Within normal limits and are stable. GENERAL: No apparent distress. Alert and oriented.SOME NEW SLURRED SPEECH TODAY NOTED HEENT: Head is normocephalic, atraumatic, pupils were equally round and reactive to light and accommodation. NECK: Supple, no JVD, no thyromegaly was noted. LUNGS: Clear to auscultation in all lung english without rhonchi or wheezing. HEART: RRR, S1, S2 present. Peripheral pulses intact, no obvious murmurs were noted. ABDOMEN: Soft, nontender. Positive bowel sounds no organomegaly, normal bowel sounds. EXTREMITIES: feet bunion, the biggest I have ever seen. The toes are pressured together also on the left. NEUROLOGIC: confused. PSYCHIATRIC: Normal affect, normal mood. Stable. SKIN: No ulcerations or rashes, good skin turgor, no jaundice. VASCULAR: Good capillary refill, neurovascular bundle appears to be intact. General: Cooperative, No acute distress Heart: Regular rate, No murmurs Lungs: Clear Abdomen: Soft, No tenderness Extremities: No clubbing, No cyanosis, No edema Labs LABS Laboratory Tests Test 04/08/19 12:24 04/08/19 16:48 04/08/19 21:00 04/09/19 07:37 Glucose (Fingerstick) 136 mg/dL (70-99) 152 mg/dL (70-99) 152 mg/dL (70-99) 187 mg/dL (70-99) Review of Systems Review of Systems dementia, cant assess ROS Assessment and Plan Assessmemt and Plan Problems Medical Problems: (1) Altered mental status Status: Acute Comment Review of Relevant I have reviewed the following items nathaniel (where applicable) has been applied. Labs Laboratory Tests Test 04/07/19 16:24 04/07/19 20:48 04/07/19 21:23 04/07/19 23:37 Glucose (Fingerstick) 146 mg/dL (70-99) 50 mg/dL (70-99) 85 mg/dL (70-99) 110 mg/dL (70-99) Test 04/08/19 04:49 04/08/19 06:45 04/08/19 07:27 04/08/19 12:24 Glucose (Fingerstick) 133 mg/dL (70-99) 147 mg/dL (70-99) 136 mg/dL (70-99) White Blood Count 11.4 x10^3/uL (4.0-11.0) Red Blood Count 4.18 x10^6/uL (3.50-5.40) Hemoglobin 12.4 g/dL (12.0-15.5) Hematocrit 37.6 % (36.0-47.0) Mean Corpuscular Volume 90 fL (79-100) Mean Corpuscular Hemoglobin 30 pg (25-35) Mean Corpuscular Hemoglobin Concent 33 g/dL (31-37) Red Cell Distribution Width 13.9 % (11.5-14.5) Platelet Count 278 x10^3/uL (140-400) Neutrophils (%) (Auto) 67 % (31-73) Lymphocytes (%) (Auto) 21 % (24-48) Monocytes (%) (Auto) 9 % (0-9) Eosinophils (%) (Auto) 2 % (0-3) Basophils (%) (Auto) 1 % (0-3) Neutrophils # (Auto) 7.6 x10^3/uL (1.8-7.7) Lymphocytes # (Auto) 2.3 x10^3/uL (1.0-4.8) Monocytes # (Auto) 1.1 x10^3/uL (0.0-1.1) Eosinophils # (Auto) 0.3 x10^3/uL (0.0-0.7) Basophils # (Auto) 0.1 x10^3/uL (0.0-0.2) Prothrombin Time 13.7 SEC (11.7-14.0) Prothromb Time International Ratio 1.1 (0.8-1.1) Sodium Level 141 mmol/L (136-145) Potassium Level 3.4 mmol/L (3.5-5.1) Chloride Level 104 mmol/L (98-107) Carbon Dioxide Level 28 mmol/L (21-32) Anion Gap 9 (6-14) Blood Urea Nitrogen 25 mg/dL (7-20) Creatinine 0.9 mg/dL (0.6-1.0) Estimated GFR (Cockcroft-Gault) 59.1 Glucose Level 136 mg/dL (70-99) Calcium Level 9.1 mg/dL (8.5-10.1) Magnesium Level 2.4 mg/dL (1.8-2.4) Triglycerides Level 73 mg/dL (0-150) Cholesterol Level 152 mg/dL (0-200) LDL Cholesterol, Calculated 88 mg/dL (0-100) VLDL Cholesterol, Calculated 15 mg/dL (0-40) Non-HDL Cholesterol Calculated 103 mg/dL (0-129) HDL Cholesterol 49 mg/dL (40-60) Cholesterol/HDL Ratio 3.1 Test 04/08/19 16:48 04/08/19 21:00 04/09/19 07:37 Glucose (Fingerstick) 152 mg/dL (70-99) 152 mg/dL (70-99) 187 mg/dL (70-99) Laboratory Tests Test 04/08/19 12:24 04/08/19 16:48 04/08/19 21:00 04/09/19 07:37 Glucose (Fingerstick) 136 mg/dL (70-99) 152 mg/dL (70-99) 152 mg/dL (70-99) 187 mg/dL (70-99) Microbiology 04/05/19 Urine Culture - Final, Complete 04/05/19 Urine Culture Result 1 (JESS) - Final, Complete 04/05/19 Blood Culture - Preliminary, Resulted NO GROWTH AFTER 3 DAYS Medications Current Medications Sodium Chloride 1,000 ml @ 1,000 mls/hr 1X ONCE IV Last administered on 04/05/19at 18:20; Start 04/05/19 at 17:45; Stop 04/05/19 at 18:44; Status DC Ondansetron HCl (Zofran) 4 mg PRN Q8HRS PRN IV NAUSEA/VOMITING; Start 04/05/19 at 19:15; Stop 04/06/19 at 19:14; Status DC Fentanyl Citrate (Fentanyl 2ml Vial) 50 mcg PRN Q1HR PRN IV PAIN; Start 04/05/19 at 19:15; Stop 04/06/19 at 19:14; Status UNV Acetaminophen (Tylenol) 650 mg PRN Q4HRS PRN PO FEVER; Start 04/05/19 at 19:15; Stop 04/06/19 at 19:14; Status DC Aspirin (Localize Direct Aspirin) 325 mg DAILY PO ; Start 04/06/19 at 09:00; Stop 04/06/19 at 11:02; Status DC Gabapentin (Neurontin) 300 mg BID PO Last administered on 04/07/19at 09:03; Start 04/06/19 at 09:00 Insulin Human Lispro (HumaLOG) 5 units TIDWMEALS SQ Last administered on 04/09/19at 08:33; Start 04/06/19 at 08:00 Lisinopril (Prinivil) 40 mg DAILY PO Last administered on 04/07/19at 09:04; Start 04/06/19 at 09:00 Vitamin B Complex/ Vitamin C (Lizzette-Jose Carlos) 1 tab DAILY PO Last administered on 04/07/19 09:03; Start 04/06/19 at 09:00 Insulin Glargine (Lantus Syringe) 10 unit QHS SQ Last administered on at 21:40; Start 04/06/19 at 21:00 Magnesium Oxide (Magnesium Oxide) 400 mg DAILY PO Last administered on 04/07/19 09:03; Start 04/06/19 at 09:00 Fish Oil (Fish Oil) 1,000 mg DAILY PO Last administered on 04/07/19at 09:03; Start 04/06/19 at 09:00 Aspirin (Abena Aspirin) 325 mg QHS PO ; Start 04/06/19 at 21:00; Stop 04/06/19 at 17:17; Status DC Ceftriaxone Sodium (Rocephin) 1 gm Q24H IVP Last administered on 04/08/19at 17:11; Start 04/06/19 at 17:00 Lactobacillus Rhamnosus (Culturelle) 1 cap BID PO Last administered on 04/07/19at 09:03; Start 04/06/19 at 21:00 Acetaminophen (Tylenol) 650 mg PRN Q6HRS PRN PO TEMP > 100.4F; Start 04/06/19 at 17:15 Acetaminophen (Tylenol Supp) 650 mg PRN Q4HRS PRN [place] TEMP > 100.4F; Start 04/06/19 at 17:15 Aspirin (Ecotrin) 325 mg DAILYWBKFT PO Last administered on 04/07/19at 09:03; Start 04/07/19 at 08:00 Aspirin (Aspirin Rectal Supp) 300 mg PRN DAILY PRN [place] IF UNABLE TO TAKE PO Last administered on 04/08/19at 09:34; Start 04/06/19 at 17:15 Iohexol (Omnipaque 300 Mg/ml) 75 ml 1X ONCE IV Last administered on 04/07/19at 12:15; Start 04/07/19 at 12:15; Stop 04/07/19 at 12:16; Status DC Info (CONTRAST GIVEN -- Rx MONITORING) 1 each PRN DAILY PRN MC SEE COMMENTS; Start 04/07/19 at 12:15; Stop 04/09/19 at 12:14 Sodium Chloride 1,000 ml @ 50 mls/hr Q20H IV Last administered on 04/08/19at 11:24; Start 04/07/19 at 16:00 Insulin Human Lispro (HumaLOG) 0-7 UNITS TIDWMEALS SQ ; Start 04/08/19 at 08:00 Dextrose (Dextrose 50%-Water Syringe) 12.5 gm PRN Q15MIN PRN IV SEE COMMENTS Last administered on 04/07/19at 20:53; Start 04/07/19 at 20:15 Ondansetron HCl (Zofran) 4 mg PRN Q6HRS PRN IVP NAUSEA/VOMITING; Start 04/07/19 at 20:15 Potassium Chloride (Klor-Con) 40 meq 1X ONCE PO ; Start 04/08/19 at 08:45; Stop 04/08/19 at 08:46; Status DC Potassium Chloride/Water 50 ml @ 50 mls/hr 1X ONCE IV Last administered on 04/08/19at 13:16; Start 04/08/19 at 13:00; Stop 04/08/19 at 13:59; Status DC Amino Acids/ Glycerin/ Electrolytes 1,000 ml @ 80 mls/hr [id number] IV Last administered on 04/09/19at 10:33; Start 04/08/19 at 21:30 Barium Sulfate (Varibar Thin Liquid Apple) 148 gm 1X ONCE PO Last administered on 04/09/19at 11:00; Start 04/09/19 at 11:00; Stop 04/09/19 at 11:01; Status DC Active Scripts Active [mac] 25 mg/ 5 ml 20 Ml PO 7 Days Macrobid 100 Mg Capsule (Nitrofurantoin Monohyd/M-Cryst) 100 Mg Capsule 1 Cap PO BID Reported Lantus Solostar (Insulin Glargine,Hum.rec.anlog) 100 Unit/1 Ml Insuln.pen 10 Unit SQ QHS Humalog (Insulin Lispro) 100 Unit/1 Ml Vial 5 Unit SQ TIDWMEALS Benazepril Hcl 40 Mg Tablet 40 Mg PO DAILY Fish Oil [place]-3 Softgel ([place]-3S/Dha/Epa/Fish Oil) 1 Each Capsule.dr 1 Each PO DAILY Renal Caps Softgel (Folic Acid/Vitamin B Comp W-C) 1 Mg Capsule 1 Mg PO DAILY Aspirin 325 Mg Tablet 325 Mg PO DAILY Magnesium (Magnesium Oxide) 400 Mg Capsule 500 Mg PO DAILY Gabapentin (Gabapentin) 300 Mg Capsule 300 Mg PO BID Vitals/I & O Vital Sign - Last 24 Hours 04/08/19 04/08/19 04/08/19 04/08/19 15:40 19:10 20:00 23:10 Temp 98.2 99.1 97.6 98.2 99.1 97.6 Pulse 92 94 90 Resp 19 B/P (MAP) 160/53 (88) 187/55 (99) 116/56 (76) Pulse Ox 96 97 95 O2 Delivery Room Air Room Air Room Air Room Air 04/09/19 04/09/19 04/09/19 03:10 07:00 08:00 Temp 99.6 98.1 99.6 98.1 Pulse 89 78 Resp 19 B/P (MAP) 154/61 (92) 154/60 (91) Pulse Ox 94 96 O2 Delivery Room Air Room Air Room Air Intake and Output 04/08/19 04/08/19 04/09/19 14:59 22:59 06:59 Intake Total 0 ml 0 ml 0 ml Output Total 500 ml 150 ml Balance -500 ml -150 ml 0 ml ANGELO MCDONNELL MD Apr 09, 2019 11:54
--- NOTE | 2019-04-09 12:13 | PDOC ---
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 Occlusion of right middle cerebral artery Metabolic encephalopathy, cleared, urinary tract infection Diabetic peripheral neuropathy. Favorable lipid profile Dysphagia GEn weakness FULL CODE History of Present Illness History of Present Illness Family at bedside, I discussed code status and PO food options- THEY WILL TALK WITH THE OTHER SISTER WHO IS THE DPOA AND IS NOT AT BEDSIDE. SO they could not make the decision NPO, BUNKER WORKER discussed, Video swallow recommended - order in Echo done? but not yet read Radhanet does not complain of anything CAme from [facility], agreeable to SNU SOunded like PEG was unattractive to family - yifan they will discuss if it comes to that point PLAN: Video swallow FULL CODE for now October t/o tele Dc tele ff up echo COnt procalamine for now SNU screen Vitals Vitals Vital Signs Date Time Temp Pulse Resp B/P (MAP) Pulse Ox O2 Delivery O2 Flow Rate FiO2 04/09/19 08:00 Room Air 04/09/19 07:00 98.1 78 19 154/60 (91) 96 98.1 Physical Exam Physical Exam VITALS: Within normal limits and are stable. GENERAL: No apparent distress. Alert and oriented.SOME NEW SLURRED SPEECH TODAY NOTED HEENT: Head is normocephalic, atraumatic, pupils were equally round and reactive to light and accommodation. NECK: Supple, no JVD, no thyromegaly was noted. LUNGS: Clear to auscultation in all lung english without rhonchi or wheezing. HEART: RRR, S1, S2 present. Peripheral pulses intact, no obvious murmurs were noted. ABDOMEN: Soft, nontender. Positive bowel sounds no organomegaly, normal bowel sounds. EXTREMITIES: feet bunion, the biggest I have ever seen. The toes are pressured together also on the left. NEUROLOGIC: confused. PSYCHIATRIC: Normal affect, normal mood. Stable. SKIN: No ulcerations or rashes, good skin turgor, no jaundice. VASCULAR: Good capillary refill, neurovascular bundle appears to be intact. General: Cooperative, No acute distress Heart: Regular rate, No murmurs Lungs: Clear Abdomen: Soft, No tenderness Extremities: No clubbing, No cyanosis, No edema Labs LABS Laboratory Tests Test 04/08/19 12:24 04/08/19 16:48 04/08/19 21:00 04/09/19 07:37 Glucose (Fingerstick) 136 mg/dL (70-99) 152 mg/dL (70-99) 152 mg/dL (70-99) 187 mg/dL (70-99) Review of Systems Review of Systems dementia, limited, buts he denies all14 pt Assessment and Plan Assessmemt and Plan Problems Medical Problems: (1) Altered mental status Status: Acute Comment Review of Relevant I have reviewed the following items nathaniel (where applicable) has been applied. Labs Laboratory Tests Test 04/07/19 16:24 04/07/19 20:48 04/07/19 21:23 04/07/19 23:37 Glucose (Fingerstick) 146 mg/dL (70-99) 50 mg/dL (70-99) 85 mg/dL (70-99) 110 mg/dL (70-99) Test 04/08/19 04:49 04/08/19 06:45 04/08/19 07:27 04/08/19 12:24 Glucose (Fingerstick) 133 mg/dL (70-99) 147 mg/dL (70-99) 136 mg/dL (70-99) White Blood Count 11.4 x10^3/uL (4.0-11.0) Red Blood Count 4.18 x10^6/uL (3.50-5.40) Hemoglobin 12.4 g/dL (12.0-15.5) Hematocrit 37.6 % (36.0-47.0) Mean Corpuscular Volume 90 fL (79-100) Mean Corpuscular Hemoglobin 30 pg (25-35) Mean Corpuscular Hemoglobin Concent 33 g/dL (31-37) Red Cell Distribution Width 13.9 % (11.5-14.5) Platelet Count 278 x10^3/uL (140-400) Neutrophils (%) (Auto) 67 % (31-73) Lymphocytes (%) (Auto) 21 % (24-48) Monocytes (%) (Auto) 9 % (0-9) Eosinophils (%) (Auto) 2 % (0-3) Basophils (%) (Auto) 1 % (0-3) Neutrophils # (Auto) 7.6 x10^3/uL (1.8-7.7) Lymphocytes # (Auto) 2.3 x10^3/uL (1.0-4.8) Monocytes # (Auto) 1.1 x10^3/uL (0.0-1.1) Eosinophils # (Auto) 0.3 x10^3/uL (0.0-0.7) Basophils # (Auto) 0.1 x10^3/uL (0.0-0.2) Prothrombin Time 13.7 SEC (11.7-14.0) Prothromb Time International Ratio 1.1 (0.8-1.1) Sodium Level 141 mmol/L (136-145) Potassium Level 3.4 mmol/L (3.5-5.1) Chloride Level 104 mmol/L (98-107) Carbon Dioxide Level 28 mmol/L (21-32) Anion Gap 9 (6-14) Blood Urea Nitrogen 25 mg/dL (7-20) Creatinine 0.9 mg/dL (0.6-1.0) Estimated GFR (Cockcroft-Gault) 59.1 Glucose Level 136 mg/dL (70-99) Calcium Level 9.1 mg/dL (8.5-10.1) Magnesium Level 2.4 mg/dL (1.8-2.4) Triglycerides Level 73 mg/dL (0-150) Cholesterol Level 152 mg/dL (0-200) LDL Cholesterol, Calculated 88 mg/dL (0-100) VLDL Cholesterol, Calculated 15 mg/dL (0-40) Non-HDL Cholesterol Calculated 103 mg/dL (0-129) HDL Cholesterol 49 mg/dL (40-60) Cholesterol/HDL Ratio 3.1 Test 04/08/19 16:48 04/08/19 21:00 04/09/19 07:37 Glucose (Fingerstick) 152 mg/dL (70-99) 152 mg/dL (70-99) 187 mg/dL (70-99) Laboratory Tests Test 04/08/19 12:24 04/08/19 16:48 04/08/19 21:00 04/09/19 07:37 Glucose (Fingerstick) 136 mg/dL (70-99) 152 mg/dL (70-99) 152 mg/dL (70-99) 187 mg/dL (70-99) Microbiology 04/05/19 Urine Culture - Final, Complete 04/05/19 Urine Culture Result 1 (JESS) - Final, Complete 04/05/19 Blood Culture - Preliminary, Resulted NO GROWTH AFTER 3 DAYS Medications Current Medications Sodium Chloride 1,000 ml @ 1,000 mls/hr 1X ONCE IV Last administered on 04/05/19at 18:20; Start 04/05/19 at 17:45; Stop 04/05/19 at 18:44; Status DC Ondansetron HCl (Zofran) 4 mg PRN Q8HRS PRN IV NAUSEA/VOMITING; Start 04/05/19 at 19:15; Stop 04/06/19 at 19:14; Status DC Fentanyl Citrate (Fentanyl 2ml Vial) 50 mcg PRN Q1HR PRN IV PAIN; Start 04/05/19 at 19:15; Stop 04/06/19 at 19:14; Status UNV Acetaminophen (Tylenol) 650 mg PRN Q4HRS PRN PO FEVER; Start 04/05/19 at 19:15; Stop 04/06/19 at 19:14; Status DC Aspirin (Abena Aspirin) 325 mg DAILY PO ; Start 04/06/19 at 09:00; Stop 04/06/19 at 11:02; Status DC Gabapentin (Neurontin) 300 mg BID PO Last administered on 04/07/19 09:03; Start 04/06/19 at 09:00 Insulin Human Lispro (HumaLOG) 5 units TIDWMEALS SQ Last administered on 04/09/19at 08:33; Start 04/06/19 at 08:00 Lisinopril (Prinivil) 40 mg DAILY PO Last administered on 04/07/19at 09:04; Start 04/06/19 at 09:00 Vitamin B Complex/ Vitamin C (Lizzette-Jose Carlos) 1 tab DAILY PO Last administered on 04/07/19 09:03; Start 04/06/19 at 09:00 Insulin Glargine (Lantus Syringe) 10 unit QHS SQ Last administered on 04/08/19at 21:40; Start 04/06/19 at 21:00 Magnesium Oxide (Magnesium Oxide) 400 mg DAILY PO Last administered on 04/07/19 09:03; Start 04/06/19 at 09:00 Fish Oil (Fish Oil) 1,000 mg DAILY PO Last administered on 10/13/19at 09:03; Start 04/06/19 at 09:00 Aspirin (Abena Aspirin) 325 mg QHS PO ; Start 04/06/19 at 21:00; Stop 04/06/19 at 17:17; Status DC Ceftriaxone Sodium (Rocephin) 1 gm Q24H IVP Last administered on 04/08/19at 17:11; Start 04/06/19 at 17:00 Lactobacillus Rhamnosus (Culturelle) 1 cap BID PO Last administered on 04/07/19at 09:03; Start 04/06/19 at 21:00 Acetaminophen (Tylenol) 650 mg PRN Q6HRS PRN PO TEMP > 100.4F; Start 04/06/19 at 17:15 Acetaminophen (Tylenol Supp) 650 mg PRN Q4HRS PRN [place] TEMP > 100.4F; Start 04/06/19 at 17:15 Aspirin (Ecotrin) 325 mg DAILYWBKFT PO Last administered on 04/07/19at 09:03; Start 04/07/19 at 08:00 Aspirin (Aspirin Rectal Supp) 300 mg PRN DAILY PRN [place] IF UNABLE TO TAKE PO Last administered on 04/08/19at 09:34; Start 04/06/19 at 17:15 Iohexol (Omnipaque 300 Mg/ml) 75 ml 1X ONCE IV Last administered on 04/07/19at 12:15; Start 04/07/19 at 12:15; Stop 04/07/19 at 12:16; Status DC Info (CONTRAST GIVEN -- Rx MONITORING) 1 each PRN DAILY PRN MC SEE COMMENTS; Start 04/07/19 at 12:15; Stop 04/09/19 at 12:14 Sodium Chloride 1,000 ml @ 50 mls/hr Q20H IV Last administered on 04/08/19at 11:24; Start 04/07/19 at 16:00 Insulin Human Lispro (HumaLOG) 0-7 UNITS TIDWMEALS SQ ; Start 04/08/19 at 08:00 Dextrose (Dextrose 50%-Water Syringe) 12.5 gm PRN Q15MIN PRN IV SEE COMMENTS Last administered on 04/07/19at 20:53; Start 04/07/19 at 20:15 Ondansetron HCl (Zofran) 4 mg PRN Q6HRS PRN IVP NAUSEA/VOMITING; Start 04/07/19 at 20:15 Potassium Chloride (Klor-Con) 40 meq 1X ONCE PO ; Start 04/08/19 at 08:45; Stop 04/08/19 at 08:46; Status DC Potassium Chloride/Water 50 ml @ 50 mls/hr 1X ONCE IV Last administered on 04/08/19at 13:16; Start 04/08/19 at 13:00; Stop 04/08/19 at 13:59; Status DC Amino Acids/ Glycerin/ Electrolytes 1,000 ml @ 80 mls/hr [id number] IV Last administered on 04/09/19at 10:33; Start 04/08/19 at 21:30 Barium Sulfate (Varibar Thin Liquid Apple) 148 gm 1X ONCE PO Last administered on 04/09/19at 11:00; Start 04/09/19 at 11:00; Stop 04/09/19 at 11:01; Status DC Active Scripts Active [mac] 25 mg/ 5 ml 20 Ml PO 7 Days Macrobid 100 Mg Capsule (Nitrofurantoin Monohyd/M-Cryst) 100 Mg Capsule 1 Cap PO BID Reported Lantus Solostar (Insulin Glargine,Hum.rec.anlog) 100 Unit/1 Ml Insuln.pen 10 Unit SQ QHS Humalog (Insulin Lispro) 100 Unit/1 Ml Vial 5 Unit SQ TIDWMEALS Benazepril Hcl 40 Mg Tablet 40 Mg PO DAILY Fish Oil [place]-3 Softgel ([place]-3S/Dha/Epa/Fish Oil) 1 Each Capsule. 1 Each PO DAILY Renal Caps Softgel (Folic Acid/Vitamin B Comp W-C) 1 Mg Capsule 1 Mg PO DAILY Aspirin 325 Mg Tablet 325 Mg PO DAILY Magnesium (Magnesium Oxide) 400 Mg Capsule 500 Mg PO DAILY Gabapentin (Gabapentin) 300 Mg Capsule 300 Mg PO BID Vitals/I & O Vital Sign - Last 24 Hours 04/08/19 04/08/19 04/08/19 04/08/19 15:40 19:10 20:00 23:10 Temp 98.2 99.1 97.6 98.2 99.1 97.6 Pulse 92 94 90 Resp 16 18 19 B/P (MAP) 160/53 (88) 187/55 (99) 116/56 (76) Pulse Ox 96 97 95 O2 Delivery Room Air Room Air Room Air Room Air 04/09/19 04/09/19 04/09/19 03:10 07:00 08:00 Temp 99.6 98.1 99.6 98.1 Pulse 89 78 Resp 19 19 B/P (MAP) 154/61 (92) 154/60 (91) Pulse Ox 94 96 O2 Delivery Room Air Room Air Room Air Intake and Output 04/08/19 04/08/19 04/09/19 14:59 22:59 06:59 Intake Total 0 ml 0 ml 0 ml Output Total 500 ml 150 ml Balance -500 ml -150 ml 0 ml ANGELO MCDONNELL MD Apr 09, 2019 12:13
--- NOTE | 2019-04-09 14:59 | NUR ---
SW consulted for dc planning. Chart reviewed and discussed with Physician. Pt is from [facility]. PT/OT recommends SNU. Pt has failed swallow today and still NPO. Feeding will need to be addressed prior SNU eval as pt is currently on PPN. GI and PC following. Pt's family currently has been visiting [place] for possible placement. Will continue to follow.
[2019-04-09 15:00] VITALS: BP 141/55
[2019-04-09 16:10] VITALS: BP 174/56
--- NOTE | 2019-04-09 17:12 | RAD ---
Examination: VIDEO SWALLOW STUDY History: Acute right CVAs. Dysphagia. Comparison/Correlation: None Findings: Video swallow was performed utilizing 2.7 minutes of fluoroscopy. No images were acquired. Thin liquid, honey thick liquid, pudding consistency, and solid food forms of barium were utilized. Prolonged oral phase is noted with all substances. Posterior spillage into the pharynx is evident. Delay in initiation of swallowing noted. Small vallecular residuals noted. Deep laryngeal penetration is identified with honey thick liquid with suspected aspiration . Trace aspiration of thin liquid barium via teaspoon and cup noted. Cricopharyngeal hypertrophy is notable. No restriction to flow of bolus items noted. No backflow. Impression: Trace aspiration of the liquid barium. Deep laryngeal penetration with honey thick liquid barium and suspected minimal aspiration. Prolonged oral phase. Electronically signed by: Figueroa Quintero MD (04/09/2019 5:09 PM) [facility]
[2019-04-09] MEDS: cefTRIAXone IV Push 1 GM VIAL. IVP SCH (18:21)
[2019-04-09 19:00] VITALS: BP 204/75
[2019-04-09] MEDS: INSULIN GLARGINE SYRINGE. SQ SCH (22:00)
[2019-04-09 23:00] VITALS: BP 136/72
[2019-04-10 03:00] VITALS: BP 136/70
[2019-04-10] MEDS: IV NORMAL SALINE 1000ML BAG 1,000 ML IV SCH (04:47)
[2019-04-10 07:00] VITALS: BP 173/68
[2019-04-10] MEDS: INSULIN LISPRO 300 UNITS/3 ML VIAL. SQ SCH ×6 (08:00→17:00)
[2019-04-10] MEDS: ASPIRIN ENTERIC COATED 325 MG TABLET.DR. PO SCH (08:00)
--- NOTE | 2019-04-10 08:34 | CARD ---
MR#: [id number] Date of Study: 04/09/2019 Ordering Physician: JUDY TEJEDA, Referring Physician: JUDY TEJEDA, Tech: Bri Wilkinson APPROVED REPORT EXAM: Two-dimensional and M-mode echocardiogram with Doppler and color Doppler. Other Information Quality : AverageHR: 85bpm INDICATION CVA/TIA 2D DIMENSIONS RVDd2.0 (2.9-3.5cm)Left Atrium(2D)3.6 (1.6-4.0cm) IVSd1.0 (0.7-1.1cm)Aortic Root(2D)2.7 (2.0-3.7cm) LVDd4.4 (3.9-5.9cm)LVOT Diameter1.8 (1.8-2.4cm) PWd0.9 (0.7-1.1cm)LVDs2.9 (2.5-4.0cm) FS (%) 33.8 %SV55.2 ml LVEF(%)62.9 (>50%) Aortic Valve AoV Peak Colt.148.7cm/sAoV VTI28.5cm AO Peak GR.8.8mmHgLVOT VTI 19.85cm AO Mean GR.5mmHg Mitral Valve MV E Hmxbxolb185.7cm/sMV DECEL [id number] MV A Wijjvndq774.6cm/sE/A Ratio1.1 TDI Lateral E' P. V9.46cm/sMedial E' P. V7.27cm/s E/Lateral E'16.0E/Medial E'20.9 Tricuspid Valve TR P. Dquuzkoe237xr/sRAP [id number] TR Peak Gr.79dnUwOVBL31bfXd LEFT VENTRICLE The left ventricle is normal size. There is borderline to mild concentric left ventricular hypertroph y. The left ventricular systolic function is normal. The Ejection Fraction is 55-60%. There is normal LV segmental wall motion. The left ventricular diastolic function and filling is normal for age. RIGHT VENTRICLE The right ventricle is normal size. There is normal right ventricular wall thickness. The right ventr icular systolic function is normal. ATRIA The left atrium size is normal. The right atrium size is normal. The interatrial septum is intact wit h no evidence for an atrial septal defect or patent foramen ovale as noted on 2-D or Doppler imaging. AORTIC VALVE The aortic valve is calcified but opens well. Doppler and Color Flow revealed no significant aortic r egurgitation. There is no significant aortic valvular stenosis. MITRAL VALVE Mitral annular calcification is mild to moderate. There is no evidence of mitral valve prolapse. Ther e is no mitral valve stenosis. Doppler and Color-flow revealed trace mitral regurgitation. TRICUSPID VALVE The tricuspid valve is normal in structure and function. Doppler and Color Flow revealed trace tricus pid regurgitation with an estimated PAP of 66 mmHg. There is no tricuspid valve prolapse or vegetatio n. There is no tricuspid valve stenosis. PULMONIC VALVE The pulmonary valve is normal in structure and function. Doppler and Color Flow revealed trace pulmon ic valvular regurgitation. GREAT VESSELS The aortic root is normal in size. The IVC is normal in size and collapses >50% with inspiration. PERICARDIAL EFFUSION There is no evidence of significant pericardial effusion. Critical Notification Critical Value: No <Conclusion> The left ventricular systolic function is normal. The Ejection Fraction is 55-60%. Trace mitral regurgitation. Trace tricuspid regurgitation with an estimated PAP of 66 mmHg. There is no evidence of significant pericardial effusion. Signed by : Edison Paulson, Electronically Approved : 04/10/2019 08:33:27
--- NOTE | 2019-04-10 08:56 | PDOC ---
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 Occlusion of right middle cerebral artery Metabolic encephalopathy, cleared, urinary tract infection Diabetic peripheral neuropathy. Favorable lipid profile Dysphagia Gen weakness FULL CODE History of Present Illness History of Present Illness Family at bedside, I discussed code status and PO food options- THEY WILL TALK WITH THE OTHER SISTER WHO IS THE DPOA AND IS NOT AT BEDSIDE. SO they could not make the decision NPO, COMPUTER FORWARDING SYSTEM MARKUP CLERK discussed, Video swallow completely failed, will not repeat Patient does not complain of anything Came from [facility], agreeable to SNU SOunded like PEG was unattractive to family but they are coming around PLAN: Video swallow FULL CODE for now October t/o tele Dc tele ff up echo COnt procalamine for now SNU screen Vitals Vitals Vital Signs Date Time Temp Pulse Resp B/P (MAP) Pulse Ox O2 Delivery O2 Flow Rate FiO2 04/10/19 07:00 97.9 83 18 173/68 (103) 94 Room Air 97.9 Physical Exam Physical Exam VITALS: Within normal limits and are stable. GENERAL: No apparent distress. Alert and oriented.SOME NEW SLURRED SPEECH TODAY NOTED HEENT: Head is normocephalic, atraumatic, pupils were equally round and reactive to light and accommodation. NECK: Supple, no JVD, no thyromegaly was noted. LUNGS: Clear to auscultation in all lung english without rhonchi or wheezing. HEART: RRR, S1, S2 present. Peripheral pulses intact, no obvious murmurs were noted. ABDOMEN: Soft, nontender. Positive bowel sounds no organomegaly, normal bowel sounds. EXTREMITIES: feet bunion, the biggest I have ever seen. The toes are pressured together also on the left. NEUROLOGIC: confused. PSYCHIATRIC: Normal affect, normal mood. Stable. SKIN: No ulcerations or rashes, good skin turgor, no jaundice. VASCULAR: Good capillary refill, neurovascular bundle appears to be intact. General: Cooperative, No acute distress Heart: Regular rate, No murmurs Lungs: Clear Abdomen: Soft, No tenderness Extremities: No clubbing, No cyanosis, No edema Labs LABS Laboratory Tests Test 04/09/19 21:38 04/10/19 07:31 Glucose (Fingerstick) 201 mg/dL (70-99) 166 mg/dL (70-99) Assessment and Plan Assessmemt and Plan Problems Medical Problems: (1) Altered mental status Status: Acute Comment Review of Relevant I have reviewed the following items nathaniel (where applicable) has been applied. Labs Laboratory Tests Test 04/08/19 12:24 04/08/19 16:48 04/08/19 21:00 04/09/19 07:37 Glucose (Fingerstick) 136 mg/dL (70-99) 152 mg/dL (70-99) 152 mg/dL (70-99) 187 mg/dL (70-99) Test 04/09/19 21:38 04/10/19 07:31 Glucose (Fingerstick) 201 mg/dL (70-99) 166 mg/dL (70-99) Laboratory Tests Test 04/09/19 21:38 04/10/19 07:31 Glucose (Fingerstick) 201 mg/dL (70-99) 166 mg/dL (70-99) Microbiology 04/05/19 Urine Culture - Final, Complete 04/05/19 Urine Culture Result 1 (JESS) - Final, Complete 04/05/19 Blood Culture - Preliminary, Resulted NO GROWTH AFTER 4 DAYS Medications Current Medications Sodium Chloride 1,000 ml @ 1,000 mls/hr 1X ONCE IV Last administered on 04/05/19at 18:20; Start 04/05/19 at 17:45; Stop 04/05/19 at 18:44; Status DC Ondansetron HCl (Zofran) 4 mg PRN Q8HRS PRN IV NAUSEA/VOMITING; Start 04/05/19 at 19:15; Stop 04/06/19 at 19:14; Status DC Fentanyl Citrate (Fentanyl 2ml Vial) 50 mcg PRN Q1HR PRN IV PAIN; Start 04/05/19 at 19:15; Stop 04/06/19 at 19:14; Status UNV Acetaminophen (Tylenol) 650 mg PRN Q4HRS PRN PO FEVER; Start 04/05/19 at 19:15; Stop 04/06/19 at 19:14; Status DC Aspirin (Abena Aspirin) 325 mg DAILY PO ; Start 04/06/19 at 09:00; Stop 04/06/19 at 11:02; Status DC Gabapentin (Neurontin) 300 mg BID PO Last administered on 04/07/19at 09:03; Start 04/06/19 at 09:00 Insulin Human Lispro (HumaLOG) 5 units TIDWMEALS SQ Last administered on 04/09/19 08:33; Start 04/06/19 at 08:00 Lisinopril (Prinivil) 40 mg DAILY PO Last administered on 04/07/19 09:04; Start 04/06/19 at 09:00 Vitamin B Complex/ Vitamin C (Lizzette-Jose Carlos) 1 tab DAILY PO Last administered on 04/07/19 09:03; Start 04/06/19 at 09:00 Insulin Glargine (Lantus Syringe) 10 unit QHS SQ Last administered on 04/09/19 22:00; Start 04/06/19 at 21:00 Magnesium Oxide (Magnesium Oxide) 400 mg DAILY PO Last administered on 04/07/19 09:03; Start 04/06/19 at 09:00 Fish Oil (Fish Oil) 1,000 mg DAILY PO Last administered on 04/07/19 09:03; Start 04/06/19 at 09:00 Aspirin (Abena Aspirin) 325 mg QHS PO ; Start 04/06/19 at 21:00; Stop 04/06/19 at 17:17; Status DC Ceftriaxone Sodium (Rocephin) 1 gm Q24H IVP Last administered on 04/09/19 18:21; Start 04/06/19 at 17:00 Lactobacillus Rhamnosus (Culturelle) 1 cap BID PO Last administered on 09:03; Start 04/06/19 at 21:00 Acetaminophen (Tylenol) 650 mg PRN Q6HRS PRN PO TEMP > 100.4F; Start 04/06/19 at 17:15 Acetaminophen (Tylenol Supp) 650 mg PRN Q4HRS PRN [place] TEMP > 100.4F; Start 04/06/19 at 17:15 Aspirin (Ecotrin) 325 mg DAILYWBKFT PO Last administered on 04/07/19 09:03; Start 04/07/19 at 08:00 Aspirin (Aspirin Rectal Supp) 300 mg PRN DAILY PRN [place] IF UNABLE TO TAKE PO Last administered on 04/08/19 09:34; Start 04/06/19 at 17:15 Iohexol (Omnipaque 300 Mg/ml) 75 ml 1X ONCE IV Last administered on 04/07/19at 12:15; Start 04/07/19 at 12:15; Stop 04/07/19 at 12:16; Status DC Info (CONTRAST GIVEN -- Rx MONITORING) 1 each PRN DAILY PRN MC SEE COMMENTS; Start 04/07/19 at 12:15; Stop 04/09/19 at 12:14; Status DC Sodium Chloride 1,000 ml @ 50 mls/hr Q20H IV Last administered on 04/10/19at 04:47; Start 04/07/19 at 16:00 Insulin Human Lispro (HumaLOG) 0-7 UNITS TIDWMEALS SQ ; Start 04/08/19 at 08:00 Dextrose (Dextrose 50%-Water Syringe) 12.5 gm PRN Q15MIN PRN IV SEE COMMENTS Last administered on 04/07/19at 20:53; Start 04/07/19 at 20:15 Ondansetron HCl (Zofran) 4 mg PRN Q6HRS PRN IVP NAUSEA/VOMITING; Start 04/07/19 at 20:15 Potassium Chloride (Klor-Con) 40 meq 1X ONCE PO ; Start 04/08/19 at 08:45; Stop 04/08/19 at 08:46; Status DC Potassium Chloride/Water 50 ml @ 50 mls/hr 1X ONCE IV Last administered on 04/08/19at 13:16; Start 04/08/19 at 13:00; Stop 04/08/19 at 13:59; Status DC Amino Acids/ Glycerin/ Electrolytes 1,000 ml @ 80 mls/hr [id number] IV Last administered on 04/09/19at 23:00; Start 04/08/19 at 21:30 Barium Sulfate (Varibar Thin Liquid Apple) 148 gm 1X ONCE PO Last administered on 04/09/19at 11:00; Start 04/09/19 at 11:00; Stop 04/09/19 at 11:01; Status DC Active Scripts Active [mac] 25 mg/ 5 ml 20 Ml PO 7 Days Macrobid 100 Mg Capsule (Nitrofurantoin Monohyd/M-Cryst) 100 Mg Capsule 1 Cap PO BID Reported Lantus Solostar (Insulin Glargine,Hum.rec.anlog) 100 Unit/1 Ml Insuln.pen 10 Unit SQ QHS Humalog (Insulin Lispro) 100 Unit/1 Ml Vial 5 Unit SQ TIDWMEALS Benazepril Hcl 40 Mg Tablet 40 Mg PO DAILY Fish Oil [place]-3 Softgel ([place]-3S/Dha/Epa/Fish Oil) 1 Each Capsule. 1 Each PO DAILY Renal Caps Softgel (Folic Acid/Vitamin B Comp W-C) 1 Mg Capsule 1 Mg PO DAILY Aspirin 325 Mg Tablet 325 Mg PO DAILY Magnesium (Magnesium Oxide) 400 Mg Capsule 500 Mg PO DAILY Gabapentin (Gabapentin) 300 Mg Capsule 300 Mg PO BID Vitals/I & O Vital Sign - Last 24 Hours 04/09/19 04/09/19 04/09/19 04/09/19 15:00 16:10 19:00 20:00 Temp 98.0 98.1 97.9 98.0 98.1 97.9 Pulse 74 83 90 Resp 19 18 18 B/P (MAP) 141/55 (83) 174/56 (95) 204/75 (118) Pulse Ox 98 94 97 O2 Delivery Room Air Room Air Room Air 04/09/19 04/10/19 04/10/19 23:00 03:00 07:00 Temp 98.9 98.8 97.9 98.9 98.8 97.9 Pulse 89 78 83 Resp 18 18 18 B/P (MAP) 136/72 (93) 136/70 (92) 173/68 (103) Pulse Ox 95 96 94 O2 Delivery Room Air Room Air Room Air Intake and Output 04/09/19 04/09/19 04/10/19 14:59 22:59 06:59 Intake Total 0 ml Balance 0 ml RAMON BENITES MD Apr 10, 2019 08:56
[2019-04-10] MEDS: OMEGA-3 FATTY ACIDS/FISH OIL 1,000 MG CAPSULE. PO SCH (09:00)
[2019-04-10] MEDS: MAGNESIUM OXIDE 400 MG TABLET PO SCH (09:00)
[2019-04-10] MEDS: LISINOPRIL 20 MG TABLET PO SCH (09:00)
[2019-04-10] MEDS: FOLIC/VIT B COMP W-C (RENAL) TABLET. PO SCH (09:00)
[2019-04-10] MEDS: LACTOBACILLUS RHAMNOSUS GG 1 CAPSULE. PO SCH ×2 (09:00→20:04)
[2019-04-10] MEDS: GABAPENTIN 300 MG CAPSULE. PO SCH ×2 (09:00→20:04)
--- NOTE | 2019-04-10 09:43 | PDOC ---
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 Occlusion of right middle cerebral artery Metabolic encephalopathy, cleared, urinary tract infection Diabetic peripheral neuropathy. Favorable lipid profile Dysphagia Plan Await repeat swallow tests, consulted G.ITaryn to be on standby for PEG Continue aspirin Given patient's age and lipid panel results, I believe the risks outweigh the benefits of a statin Rehabilitation modalities, will need SNU Subjective Wants to eat Objective Vital Signs Date Time Temp Pulse Resp B/P (MAP) Pulse Ox O2 Delivery O2 Flow Rate FiO2 04/10/19 07:00 97.9 83 18 173/68 (103) 94 Room Air 97.9 Intake and Output 04/10/19 07:00 Intake Total 0 ml Balance 0 ml Intake Oral 0 ml # Voids 5 # Bowel Movements 2 PHYSICAL EXAM Alert. Oriented to time, place and person. PERRL. EOMI. CN: Left central facial weakness, dysarthric speech Muscle tone: normal. Muscle strength: 4/5 on left DTR: 1+ Plantar reflex: flexor Gait: not examined in bed. Sensory exam: stocking loss. No cerebellar signs elicited. Review of Relevant I have reviewed the following items nathaniel (where applicable) has been applied. Labs Laboratory Tests Test 04/08/19 12:24 04/08/19 16:48 04/08/19 21:00 04/09/19 07:37 Glucose (Fingerstick) 136 mg/dL (70-99) 152 mg/dL (70-99) 152 mg/dL (70-99) 187 mg/dL (70-99) Test 04/09/19 21:38 04/10/19 07:31 Glucose (Fingerstick) 201 mg/dL (70-99) 166 mg/dL (70-99) Laboratory Tests Test 04/09/19 21:38 04/10/19 07:31 Glucose (Fingerstick) 201 mg/dL (70-99) 166 mg/dL (70-99) Microbiology 04/05/19 Urine Culture - Final, Complete 04/05/19 Urine Culture Result 1 (JESS) - Final, Complete 04/05/19 Blood Culture - Preliminary, Resulted NO GROWTH AFTER 4 DAYS Medications Current Medications Sodium Chloride 1,000 ml @ 1,000 mls/hr 1X ONCE IV Last administered on 04/05/19at 18:20; Start 04/05/19 at 17:45; Stop 04/05/19 at 18:44; Status DC Ondansetron HCl (Zofran) 4 mg PRN Q8HRS PRN IV NAUSEA/VOMITING; Start 04/05/19 at 19:15; Stop 04/06/19 at 19:14; Status DC Fentanyl Citrate (Fentanyl 2ml Vial) 50 mcg PRN Q1HR PRN IV PAIN; Start 04/05/19 at 19:15; Stop 04/06/19 at 19:14; Status UNV Acetaminophen (Tylenol) 650 mg PRN Q4HRS PRN PO FEVER; Start 04/05/19 at 19:15; Stop 04/06/19 at 19:14; Status DC Aspirin (Listnerd Aspirin) 325 mg DAILY PO ; Start 04/06/19 at 09:00; Stop 04/06/19 at 11:02; Status DC Gabapentin (Neurontin) 300 mg BID PO Last administered on 04/07/19at 09:03; Start 04/06/19 at 09:00 Insulin Human Lispro (HumaLOG) 5 units TIDWMEALS SQ Last administered on 04/09/19at 08:33; Start 04/06/19 at 08:00 Lisinopril (Prinivil) 40 mg DAILY PO Last administered on 04/07/19 09:04; Start 04/06/19 at 09:00 Vitamin B Complex/ Vitamin C (Lizzette-Jose Carlos) 1 tab DAILY PO Last administered on 04/07/19 09:03; Start 04/06/19 at 09:00 Insulin Glargine (Lantus Syringe) 10 unit QHS SQ Last administered on 04/09/19at 22:00; Start 04/06/19 at 21:00 Magnesium Oxide (Magnesium Oxide) 400 mg DAILY PO Last administered on 04/07/19 09:03; Start 04/06/19 at 09:00 Fish Oil (Fish Oil) 1,000 mg DAILY PO Last administered on 04/07/19at 09:03; Start 04/06/19 at 09:00 Aspirin (Abena Aspirin) 325 mg QHS PO ; Start 04/06/19 at 21:00; Stop 04/06/19 at 17:17; Status DC Ceftriaxone Sodium (Rocephin) 1 gm Q24H IVP Last administered on 04/09/19at 18:21; Start 04/06/19 at 17:00 Lactobacillus Rhamnosus (Culturelle) 1 cap BID PO Last administered on 04/07/19at 09:03; Start 04/06/19 at 21:00 Acetaminophen (Tylenol) 650 mg PRN Q6HRS PRN PO TEMP > 100.4F; Start 04/06/19 at 17:15 Acetaminophen (Tylenol Supp) 650 mg PRN Q4HRS PRN RI TEMP > 100.4F; Start 04/06/19 at 17:15 Aspirin (Ecotrin) 325 mg DAILYWBKFT PO Last administered on 04/07/19at 09:03; Start 04/07/19 at 08:00 Aspirin (Aspirin Rectal Supp) 300 mg PRN DAILY PRN RI IF UNABLE TO TAKE PO Last administered on 04/08/19at 09:34; Start 04/06/19 at 17:15 Iohexol (Omnipaque 300 Mg/ml) 75 ml 1X ONCE IV Last administered on 04/07/19at 12:15; Start 04/07/19 at 12:15; Stop 04/07/19 at 12:16; Status DC Info (CONTRAST GIVEN -- Rx MONITORING) 1 each PRN DAILY PRN MC SEE COMMENTS; Start 04/07/19 at 12:15; Stop 04/09/19 at 12:14; Status DC Sodium Chloride 1,000 ml @ 50 mls/hr Q20H IV Last administered on 04/10/19at 04:47; Start 04/07/19 at 16:00 Insulin Human Lispro (HumaLOG) 0-7 UNITS TIDWMEALS SQ ; Start 04/08/19 at 08:00 Dextrose (Dextrose 50%-Water Syringe) 12.5 gm PRN Q15MIN PRN IV SEE COMMENTS Last administered on 04/07/19at 20:53; Start 04/07/19 at 20:15 Ondansetron HCl (Zofran) 4 mg PRN Q6HRS PRN IVP NAUSEA/VOMITING; Start 04/07/19 at 20:15 Potassium Chloride (Klor-Con) 40 meq 1X ONCE PO ; Start 04/08/19 at 08:45; Stop 04/08/19 at 08:46; Status DC Potassium Chloride/Water 50 ml @ 50 mls/hr 1X ONCE IV Last administered on 04/08/19at 13:16; Start 04/08/19 at 13:00; Stop 04/08/19 at 13:59; Status DC Amino Acids/ Glycerin/ Electrolytes 1,000 ml @ 80 mls/hr [id number] IV Last administered on 04/09/19at 23:00; Start 04/08/19 at 21:30 Barium Sulfate (Varibar Thin Liquid Apple) 148 gm 1X ONCE PO Last administered on 04/09/19at 11:00; Start 04/09/19 at 11:00; Stop 04/09/19 at 11:01; Status DC Active Scripts Active [mac] 25 mg/ 5 ml 20 Ml PO 7 Days Macrobid 100 Mg Capsule (Nitrofurantoin Monohyd/M-Cryst) 100 Mg Capsule 1 Cap PO BID Reported Lantus Solostar (Insulin Glargine,Hum.rec.anlog) 100 Unit/1 Ml Insuln.pen 10 Unit SQ QHS Humalog (Insulin Lispro) 100 Unit/1 Ml Vial 5 Unit SQ TIDWMEALS Benazepril Hcl 40 Mg Tablet 40 Mg PO DAILY Fish Oil [place]inety [place]-3 Softgel (Ninety Six-3S/Dha/Epa/Fish Oil) 1 Each Capsule.dr 1 Each PO DAILY Renal Caps Softgel (Folic Acid/Vitamin B Comp W-C) 1 Mg Capsule 1 Mg PO DAILY Aspirin 325 Mg Tablet 325 Mg PO DAILY Magnesium (Magnesium Oxide) 400 Mg Capsule 500 Mg PO DAILY Gabapentin (Gabapentin) 300 Mg Capsule 300 Mg PO BID Vitals/I & O Vital Sign - Last 24 Hours 04/09/19 04/09/19 04/09/19 04/09/19 15:00 16:10 19:00 20:00 Temp 98.0 98.1 97.9 98.0 98.1 97.9 Pulse 74 83 90 Resp 18 18 B/P (MAP) 141/55 (83) 174/56 (95) 204/75 (118) Pulse Ox 98 94 97 O2 Delivery Room Air Room Air Room Air 04/09/19 04/10/19 04/10/19 23:00 03:00 07:00 Temp 98.9 98.8 97.9 98.9 98.8 97.9 Pulse 89 78 83 Resp 18 18 18 B/P (MAP) 136/72 (93) 136/70 (92) 173/68 (103) Pulse Ox 95 96 94 O2 Delivery Room Air Room Air Room Air Intake and Output 04/09/19 04/09/19 04/10/19 15:00 23:00 07:00 Intake Total 0 ml Balance 0 ml Images LEFT VENTRICLE The left ventricle is normal size. There is borderline to mild concentric left ventricular hypertrophy. The left ventricular systolic function is normal. The Ejection Fraction is 55-60%. There is normal LV segmental wall motion. The left ventricular diastolic function and filling is normal for age. RIGHT VENTRICLE The right ventricle is normal size. There is normal right ventricular wall thickness. The right ventricular systolic function is normal. ATRIA The left atrium size is normal. The right atrium size is normal. The interatrial septum is intact with no evidence for an atrial septal defect or patent foramen ovale as noted on 2-D or Doppler imaging. AORTIC VALVE The aortic valve is calcified but opens well. Doppler and Color Flow revealed no significant aortic regurgitation. There is no significant aortic valvular stenosis. MITRAL VALVE Mitral annular calcification is mild to moderate. There is no evidence of mitral valve prolapse. There is no mitral valve stenosis. Doppler and Color-flow revealed trace mitral regurgitation. TRICUSPID VALVE The tricuspid valve is normal in structure and function. Doppler and Color Flow revealed trace tricuspid regurgitation with an estimated PAP of 66 mmHg. There is no tricuspid valve prolapse or vegetation. There is no tricuspid valve stenosis. PULMONIC VALVE The pulmonary valve is normal in structure and function. Doppler and Color Flow revealed trace pulmonic valvular regurgitation. GREAT VESSELS The aortic root is normal in size. The IVC is normal in size and collapses >50% with inspiration. PERICARDIAL EFFUSION There is no evidence of significant pericardial effusion. Critical Notification Critical Value: No <Conclusion> The left ventricular systolic function is normal. The Ejection Fraction is 55-60%. Trace mitral regurgitation. Trace tricuspid regurgitation with an estimated PAP of 66 mmHg. There is no evidence of significant pericardial effusion. JUDY TEJEDA MD Apr 10, 2019 09:43
[2019-04-10 10:17] LABS: CALCIUM 9.2 mg/dL (8.5-10.1); CREATININE 0.7 mg/dL (0.6-1.0); MAGNESIUM 2.4 mg/dL (1.8-2.4); POTASSIUM 3.9 mmol/L (3.5-5.1)
[2019-04-10 11:00] VITALS: BP 169/70
--- NOTE | 2019-04-10 11:37 | PDOC ---
Subjective: Subjective: Alone in room when I stopped by - she says she's feeling okay. I asked if she would want a feeding tube and she said "they left it up to me and I'm tired of tubes." Objective: Objective: Palliative care asked to see. Vital Signs: Vital Signs Date Time Temp Pulse Resp B/P (MAP) Pulse Ox O2 Delivery O2 Flow Rate FiO2 04/10/19 07:00 97.9 83 18 173/68 (103) 94 Room Air 97.9 Labs: Laboratory Tests Test 04/09/19 21:38 04/10/19 07:31 04/10/19 09:30 Glucose (Fingerstick) 201 mg/dL 166 mg/dL Sodium Level 135 mmol/L Potassium Level 3.9 mmol/L Chloride Level 99 mmol/L Carbon Dioxide Level 26 mmol/L Anion Gap 10 Blood Urea Nitrogen 21 mg/dL Creatinine 0.7 mg/dL Estimated GFR (Cockcroft-Gault) 79.0 Glucose Level 187 mg/dL Calcium Level 9.2 mg/dL Magnesium Level 2.4 mg/dL Imaging: Videoswallow Impression: Trace aspiration of the liquid barium. Deep laryngeal penetration with honey thick liquid barium and suspected minimal aspiration. Prolonged oral phase. Initial Videoswallow Study Report Oropharyngeal delay noted w/puree and oral residue present across consistencies. Trace aspiration of thin liquid via cup and tsp; deep penetration of honey thick liquid w/at least one instance of suspected aspiration on uncleared penetration. Solids w/sig delay to ABSENT swallow initiation and mod oral residue. Delayed cough noted in response to aspiration. IMPRESSIONS: Moderate oropharyngeal d ysphagia. Pt w/high risk of aspiration on thin and honey thick liquids. Solids non-functional. Non-oral nutrition indicated for at least immediate future. Both weakness and delay are contributing factors to current dysphagia and are c/w recent acute R CVAs. RECOMMENDATIONS: Con't NPO meds and nutrition; oral care. Echocardiogram <Conclusion> The left ventricular systolic function is normal. The Ejection Fraction is 55-60%. Trace mitral regurgitation. Trace tricuspid regurgitation with an estimated PAP of 66 mmHg. There is no evidence of significant pericardial effusion. PE: GEN: NAD, in chair LUNGS: CTAB HEART: RRR ABD: S/ND/NT NEURO/PSYCH: A & O 3 A/P: Dysphagia s/p CVA - NPO on PPN, ASA supp -- Await palliative care discussion re: PEG. GRISEL WINSTON Apr 10, 2019 11:37
[2019-04-10] MEDS: AMINO AC 3%/ELECTROLYTE/GLYCER 1,000 ML IV SCH ×2 (11:52→23:14)
[2019-04-10 15:00] VITALS: BP 154/68
--- NOTE | 2019-04-10 16:22 | NUR ---
SW following pt. Spoke with pt's daughter, Etta, phone: [phone] and discussed dc plan. Pt is scheduled for PEG tomorrow or on Monday. Pt's daughter have been visiting facilities yesterday and requested SWer to send referral to [facility]. Daughter is already aware of medicare ratings and discussed possible LTC placement for pt after rehab. Etta does not think pt will be able to return to [facility] and thinks pt might need more than a support [place] can provide. Per daughter, Pt has [facility] medicaid (SW will notify about this, nothing in EMR about Medicaid). SW discussed insurance benefits for SNU and LTC. Etta hopes pt will be able to transfer to LTC after SNU. Plan 1.SW phoned and faxed referral to [facility]. Pt acceptance pending. 2. Pt will need to have PEG placed and tolerate feeding prior dc to SNU. 3. SW will continue to follow.
[2019-04-10] MEDS: cefTRIAXone IV Push 1 GM VIAL. IVP SCH (18:00)
--- NOTE | 2019-04-10 18:03 | PDOC2 ---
PALLIATIVE CARE Palliative Care Note Palliative Care Met with Dr. Dixon and Etta /MAN. Dr. Dixon had discussion regarding goals. Plan PEG tomorrow. Copy of AD placed on record. Code Status; Full code. PC will sign off. YOKASTA MACDONALD Apr 10, 2019 18:03
[2019-04-10 19:00] VITALS: BP 171/63
[2019-04-10] MEDS: INSULIN GLARGINE SYRINGE. SQ SCH (21:00)
[2019-04-10 23:00] VITALS: BP 163/61
[2019-04-11] VITALS (14 sets, daily range): BP systolic 125–200; BP diastolic 46–97
[2019-04-11] MEDS ORDERED: IV RINGERS,LACTATED 1000ML 1,000 ML IV SCH (07:00)
[2019-04-11] MEDS ORDERED: IV RINGERS,LACTATED 1000ML 1,000 ML IV ONE (07:30)
[2019-04-11] MEDS: ASPIRIN ENTERIC COATED 325 MG TABLET.DR. PO SCH (08:00)
[2019-04-11] MEDS: INSULIN LISPRO 300 UNITS/3 ML VIAL. SQ SCH ×6 (08:00→17:00)
[2019-04-11] MEDS: FOLIC/VIT B COMP W-C (RENAL) TABLET. PO SCH (08:12)
[2019-04-11] MEDS: GABAPENTIN 300 MG CAPSULE. PO SCH ×2 (08:12→20:22)
[2019-04-11] MEDS: MAGNESIUM OXIDE 400 MG TABLET PO SCH (08:12)
[2019-04-11] MEDS: LACTOBACILLUS RHAMNOSUS GG 1 CAPSULE. PO SCH (08:12)
[2019-04-11] MEDS: LISINOPRIL 20 MG TABLET PO SCH (08:12)
[2019-04-11] MEDS: OMEGA-3 FATTY ACIDS/FISH OIL 1,000 MG CAPSULE. PO SCH (08:12)
--- NOTE | 2019-04-11 08:27 | PDOC ---
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 Occlusion of right middle cerebral artery Metabolic encephalopathy, cleared, urinary tract infection Diabetic peripheral neuropathy. Favorable lipid profile Dysphagia Gen weakness FULL CODE History of Present Illness History of Present Illness 88-year-old right-handed female whose daughter brought her in for altered mental status. She has been found to have an abnormal head CT and urinary tract infection. She is feeling better today. At baseline, the patient lives on her own and get some help from the family. She gets around with a walker or a wheelchair because of her neuropathy. MRI confirmed right temporal lobe and right parietal lobe and posterior right frontal lobe infarcts and CTA showed occlusion of right MCA. NPO, [employer] discussed, Video swallow completely failed, will not repeat. Daughter has consented to PEG, though patient (not oriented) still does not want it. Patient does not complain of anything except she wants rye bread Came from [facility], agreeable to SNU PLAN: PEG FULL CODE for now Cont procalamine for now SNU approved, likely d/c tomorrow Vitals Vitals Vital Signs Date Time Temp Pulse Resp B/P (MAP) Pulse Ox O2 Delivery O2 Flow Rate FiO2 04/11/19 07:00 98.3 80 16 125/74 (91) 96 Room Air 98.3 Physical Exam Physical Exam VITALS: Within normal limits and are stable. GENERAL: No apparent distress. Alert and oriented.SOME NEW [place]UR[place] SPEECH TODAY NOTED HEENT: Head is normocephalic, atraumatic, pupils were equally round and reactive to light and accommodation. NECK: Supple, no JVD, no thyromegaly was noted. LUNGS: Clear to auscultation in all lung english without rhonchi or wheezing. HEART: RRR, S1, S2 present. Peripheral pulses intact, no obvious murmurs were noted. ABDOMEN: Soft, nontender. Positive bowel sounds no organomegaly, normal bowel sounds. EXTREMITIES: feet bunion, the biggest I have ever seen. The toes are pressured together also on the left. NEUROLOGIC: confused. PSYCHIATRIC: Normal affect, normal mood. Stable. SKIN: No ulcerations or rashes, good skin turgor, no jaundice. VASCULAR: Good capillary refill, neurovascular bundle appears to be intact. General: Cooperative, No acute distress Heart: Regular rate, No murmurs Lungs: Clear Abdomen: Soft, No tenderness Extremities: No clubbing, No cyanosis, No edema Labs LABS Laboratory Tests Test 04/10/19 09:30 04/10/19 11:34 04/10/19 16:11 04/10/19 21:24 Sodium Level 135 mmol/L (136-145) Potassium Level 3.9 mmol/L (3.5-5.1) Chloride Level 99 mmol/L (98-107) Carbon Dioxide Level 26 mmol/L (21-32) Anion Gap 10 (6-14) Blood Urea Nitrogen 21 mg/dL (7-20) Creatinine 0.7 mg/dL (0.6-1.0) Estimated GFR (Cockcroft-Gault) 79.0 Glucose Level 187 mg/dL (70-99) Calcium Level 9.2 mg/dL (8.5-10.1) Magnesium Level 2.4 mg/dL (1.8-2.4) Glucose (Fingerstick) 169 mg/dL (70-99) 173 mg/dL (70-99) 164 mg/dL (70-99) Test 04/11/19 08:01 Glucose (Fingerstick) 164 mg/dL (70-99) Assessment and Plan Assessmemt and Plan Problems Medical Problems: (1) Altered mental status Status: Acute Comment Review of Relevant I have reviewed the following items nathaniel (where applicable) has been applied. Labs Laboratory Tests Test 04/09/19 21:38 04/10/19 07:31 04/10/19 09:30 04/10/19 11:34 Glucose (Fingerstick) 201 mg/dL (70-99) 166 mg/dL (70-99) 169 mg/dL (70-99) Sodium Level 135 mmol/L (136-145) Potassium Level 3.9 mmol/L (3.5-5.1) Chloride Level 99 mmol/L (98-107) Carbon Dioxide Level 26 mmol/L (21-32) Anion Gap 10 (6-14) Blood Urea Nitrogen 21 mg/dL (7-20) Creatinine 0.7 mg/dL (0.6-1.0) Estimated GFR (Cockcroft-Gault) 79.0 Glucose Level 187 mg/dL (70-99) Calcium Level 9.2 mg/dL (8.5-10.1) Magnesium Level 2.4 mg/dL (1.8-2.4) Test 04/10/19 16:11 04/10/19 21:24 04/11/19 08:01 Glucose (Fingerstick) 173 mg/dL (70-99) 164 mg/dL (70-99) 164 mg/dL (70-99) Laboratory Tests Test 04/10/19 09:30 04/10/19 11:34 04/10/19 16:11 04/10/19 21:24 Sodium Level 135 mmol/L (136-145) Potassium Level 3.9 mmol/L (3.5-5.1) Chloride Level 99 mmol/L (98-107) Carbon Dioxide Level 26 mmol/L (21-32) Anion Gap 10 (6-14) Blood Urea Nitrogen 21 mg/dL (7-20) Creatinine 0.7 mg/dL (0.6-1.0) Estimated GFR (Cockcroft-Gault) 79.0 Glucose Level 187 mg/dL (70-99) Calcium Level 9.2 mg/dL (8.5-10.1) Magnesium Level 2.4 mg/dL (1.8-2.4) Glucose (Fingerstick) 169 mg/dL (70-99) 173 mg/dL (70-99) 164 mg/dL (70-99) Test 04/11/19 08:01 Glucose (Fingerstick) 164 mg/dL (70-99) Microbiology 04/05/19 Urine Culture - Final, Complete 04/05/19 Urine Culture Result 1 (JESS) - Final, Complete 04/05/19 Blood Culture - Final, Complete NO GROWTH AFTER 5 DAYS Medications Current Medications Sodium Chloride 1,000 ml @ 1,000 mls/hr 1X ONCE IV Last administered on 04/05/19at 18:20; Start 04/05/19 at 17:45; Stop 04/05/19 at 18:44; Status DC Ondansetron HCl (Zofran) 4 mg PRN Q8HRS PRN IV NAUSEA/VOMITING; Start 04/05/19 at 19:15; Stop 04/06/19 at 19:14; Status DC Fentanyl Citrate (Fentanyl 2ml Vial) 50 mcg PRN Q1HR PRN IV PAIN; Start 04/05/19 at 19:15; Stop 04/06/19 at 19:14; Status UNV Acetaminophen (Tylenol) 650 mg PRN Q4HRS PRN PO FEVER; Start 04/05/19 at 19:15; Stop 04/06/19 at 19:14; Status DC Aspirin (Abena Aspirin) 325 mg DAILY PO ; Start 04/06/19 at 09:00; Stop 04/06/19 at 11:02; Status DC Gabapentin (Neurontin) 300 mg BID PO Last administered on 04/07/19at 09:03; Start 04/06/19 at 09:00 Insulin Human Lispro (HumaLOG) 5 units TIDWMEALS SQ Last administered on 04/09/19 08:33; Start 04/06/19 at 08:00 Lisinopril (Prinivil) 40 mg DAILY PO Last administered on 04/07/19 09:04; Start 04/06/19 at 09:00 Vitamin B Complex/ Vitamin C (Lizzette-Jose Carlos) 1 tab DAILY PO Last administered on 04/07/19 09:03; Start 04/06/19 at 09:00 Insulin Glargine (Lantus Syringe) 10 unit QHS SQ Last administered on 04/10/19at 21:00; Start 04/06/19 at 21:00 Magnesium Oxide (Magnesium Oxide) 400 mg DAILY PO Last administered on 04/07/19 09:03; Start 04/06/19 at 09:00 Fish Oil (Fish Oil) 1,000 mg DAILY PO Last administered on 04/07/19at 09:03; Start 04/06/19 at 09:00 Aspirin (Abena Aspirin) 325 mg QHS PO ; Start 04/06/19 at 21:00; Stop 04/06/19 at 17:17; Status DC Ceftriaxone Sodium (Rocephin) 1 gm Q24H IVP Last administered on 04/10/19at 18:00; Start 04/06/19 at 17:00; Stop 04/10/19 at 17:01; Status DC Lactobacillus Rhamnosus (Culturelle) 1 cap BID PO Last administered on 04/07/19 09:03; Start 04/06/19 at 21:00 Acetaminophen (Tylenol) 650 mg PRN Q6HRS PRN PO TEMP > 100.4F; Start 04/06/19 at 17:15 Acetaminophen (Tylenol Supp) 650 mg PRN Q4HRS PRN NJ TEMP > 100.4F; Start 04/06/19 at 17:15 Aspirin (Ecotrin) 325 mg DAILYWBKFT PO Last administered on 04/07/19at 09:03; Start 04/07/19 at 08:00 Aspirin (Aspirin Rectal Supp) 300 mg PRN DAILY PRN NJ IF UNABLE TO TAKE PO Last administered on 04/08/19at 09:34; Start 04/06/19 at 17:15 Iohexol (Omnipaque 300 Mg/ml) 75 ml 1X ONCE IV Last administered on 04/07/19at 12:15; Start 04/07/19 at 12:15; Stop 04/07/19 at 12:16; Status DC Info (CONTRAST GIVEN -- Rx MONITORING) 1 each PRN DAILY PRN MC SEE COMMENTS; Start 04/07/19 at 12:15; Stop 04/09/19 at 12:14; Status DC Sodium Chloride 1,000 ml @ 50 mls/hr Q20H IV Last administered on 04/10/19at 04:47; Start 04/07/19 at 16:00; Stop 04/10/19 at 20:06; Status DC Insulin Human Lispro (HumaLOG) 0-7 UNITS TIDWMEALS SQ ; Start 04/08/19 at 08:00 Dextrose (Dextrose 50%-Water Syringe) 12.5 gm PRN Q15MIN PRN IV SEE COMMENTS Last administered on 04/07/19at 20:53; Start 04/07/19 at 20:15 Ondansetron HCl (Zofran) 4 mg PRN Q6HRS PRN IVP NAUSEA/VOMITING; Start 04/07/19 at 20:15 Potassium Chloride (Klor-Con) 40 meq 1X ONCE PO ; Start 04/08/19 at 08:45; S top 04/08/19 at 08:46; Status DC Potassium Chloride/Water 50 ml @ 50 mls/hr 1X ONCE IV Last administered on 04/08/19at 13:16; Start 04/08/19 at 13:00; Stop 04/08/19 at 13:59; Status DC Amino Acids/ Glycerin/ Electrolytes 1,000 ml @ 80 mls/hr [id number] IV Last administered on 04/10/19at 23:14; Start 04/08/19 at 21:30 Barium Sulfate (Varibar Thin Liquid Apple) 148 gm 1X ONCE PO Last administered on 04/09/19at 11:00; Start 04/09/19 at 11:00; Stop 04/09/19 at 11:01; Status DC Ringer's Solution 1,000 ml @ 50 mls/hr Q20H IV ; Start 04/11/19 at 07:00; Stop 04/11/19 at 18:59 Ringer's Solution 1,000 ml @ 75 mls/hr 1X ONCE IV ; Start 04/11/19 at 07:30; Stop 04/11/19 at 20:49 Active Scripts Active [mac] 25 mg/ 5 ml 20 Ml PO 7 Days Macrobid 100 Mg Capsule (Nitrofurantoin Monohyd/M-Cryst) 100 Mg Capsule 1 Cap PO BID Reported Lantus Solostar (Insulin Glargine,Hum.rec.anlog) 100 Unit/1 Ml Insuln.pen 10 Unit SQ QHS Humalog (Insulin Lispro) 100 Unit/1 Ml Vial 5 Unit SQ TIDWMEALS Benazepril Hcl 40 Mg Tablet 40 Mg PO DAILY Fish Oil Minter-3 Softgel (Minter-3S/Dha/Epa/Fish Oil) 1 Each Capsule. 1 Each PO DAILY Renal Caps Softgel (Folic Acid/Vitamin B Comp W-C) 1 Mg Capsule 1 Mg PO DAILY Aspirin 325 Mg Tablet 325 Mg PO DAILY Magnesium (Magnesium Oxide) 400 Mg Capsule 500 Mg PO DAILY Gabapentin (Gabapentin) 300 Mg Capsule 300 Mg PO BID Vitals/I & O Vital Sign - Last 24 Hours 04/10/19 04/10/19 04/10/19 04/10/19 09:00 11:00 15:00 19:00 Temp 97.9 97.8 98.4 97.9 97.8 98.4 Pulse 83 80 80 84 Resp 18 18 18 B/P (MAP) 173/68 169/70 (103) 154/68 (96) 171/63 (99) Pulse Ox 95 95 97 O2 Delivery Room Air Room Air Room Air 04/10/19 04/10/19 04/11/19 04/11/19 20:00 23:00 03:00 07:00 Temp 98.3 98.1 98.3 98.3 98.1 98.3 Pulse 79 74 80 Resp 18 18 16 B/P (MAP) 163/61 (95) 162/46 (84) 125/74 (91) Pulse Ox 98 96 96 O2 Delivery Room Air Room Air Room Air Room Air Intake and Output 04/10/19 04/10/19 04/11/19 14:59 22:59 06:59 Intake Total 1000 ml Output Total 100 ml 100 ml Balance -100 ml 900 ml RAMON BENITES MD Apr 11, 2019 08:27
--- NOTE | 2019-04-11 11:40 | NUR ---
JESUS following pt. Pt has been accepted at [facility] [place] and rehab, facility will have a bed available upon dc. JESUS left a VM to pt's daughter, Etta. Will continue to follow.
[2019-04-11] MEDS: AMINO AC 3%/ELECTROLYTE/GLYCER 1,000 ML IV SCH ×2 (12:00→19:37)
--- NOTE | 2019-04-11 13:49 | PDOC ---
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 Occlusion of right middle cerebral artery Metabolic encephalopathy, cleared, urinary tract infection Diabetic peripheral neuropathy. Favorable lipid profile Dysphagia Plan PEG Continue aspirin Given patient's age and lipid panel results, I believe the risks outweigh the benefits of a statin Rehabilitation modalities, will need SNU Discussed with daughter Subjective no complaints Objective Vital Signs Date Time Temp Pulse Resp B/P (MAP) Pulse Ox O2 Delivery O2 Flow Rate FiO2 04/11/19 11:00 98.1 87 16 131/48 (75) 94 Room Air 98.1 Intake and Output 04/11/19 07:00 Intake Total 1000 ml Output Total 200 ml Balance 800 ml IV Total 1000 ml Output Urine Total 200 ml # Voids 8 # Bowel Movements 2 PHYSICAL EXAM Alert. Oriented to time, place and person. PERRL. EOMI. CN: Left central facial weakness, dysarthric speech Muscle tone: normal. Muscle strength: 4/5 on left DTR: 1+ Plantar reflex: flexor Gait: not examined in bed. Sensory exam: stocking loss. No cerebellar signs elicited. Review of Relevant I have reviewed the following items nathaniel (where applicable) has been applied. Labs Laboratory Tests Test 04/09/19 21:38 04/10/19 07:31 04/10/19 09:30 04/10/19 11:34 Glucose (Fingerstick) 201 mg/dL (70-99) 166 mg/dL (70-99) 169 mg/dL (70-99) Sodium Level 135 mmol/L (136-145) Potassium Level 3.9 mmol/L (3.5-5.1) Chloride Level 99 mmol/L (98-107) Carbon Dioxide Level 26 mmol/L (21-32) Anion Gap 10 (6-14) Blood Urea Nitrogen 21 mg/dL (7-20) Creatinine 0.7 mg/dL (0.6-1.0) Estimated GFR (Cockcroft-Gault) 79.0 Glucose Level 187 mg/dL (70-99) Calcium Level 9.2 mg/dL (8.5-10.1) Magnesium Level 2.4 mg/dL (1.8-2.4) Test 04/10/19 16:11 04/10/19 21:24 04/11/19 08:01 04/11/19 11:50 Glucose (Fingerstick) 173 mg/dL (70-99) 164 mg/dL (70-99) 164 mg/dL (70-99) 97 mg/dL (70-99) Laboratory Tests Test 04/10/19 16:11 04/10/19 21:24 04/11/19 08:01 04/11/19 11:50 Glucose (Fingerstick) 173 mg/dL (70-99) 164 mg/dL (70-99) 164 mg/dL (70-99) 97 mg/dL (70-99) Microbiology 04/05/19 Urine Culture - Final, Complete 04/05/19 Urine Culture Result 1 (JESS) - Final, Complete 04/05/19 Blood Culture - Final, Complete NO GROWTH AFTER 5 DAYS Medications Current Medications Sodium Chloride 1,000 ml @ 1,000 mls/hr 1X ONCE IV Last administered on 04/05/19at 18:20; Start 04/05/19 at 17:45; Stop 04/05/19 at 18:44; Status DC Ondansetron HCl (Zofran) 4 mg PRN Q8HRS PRN IV NAUSEA/VOMITING; Start 04/05/19 at 19:15; Stop 04/06/19 at 19:14; Status DC Fentanyl Citrate (Fentanyl 2ml Vial) 50 mcg PRN Q1HR PRN IV PAIN; Start 04/05/19 at 19:15; Stop 04/06/19 at 19:14; Status UNV Acetaminophen (Tylenol) 650 mg PRN Q4HRS PRN PO FEVER; Start 04/05/19 at 19:15; Stop 04/06/19 at 19:14; Status DC Aspirin (Abena Aspirin) 325 mg DAILY PO ; Start 04/06/19 at 09:00; Stop 04/06/19 at 11:02; Status DC Gabapentin (Neurontin) 300 mg BID PO Last administered on 04/07/19at 09:03; Start 04/06/19 at 09:00 Insulin Human Lispro (HumaLOG) 5 units TIDWMEALS SQ Last administered on 04/11/19at 12:13; Start 04/06/19 at 08:00 Lisinopril (Prinivil) 40 mg DAILY PO Last administered on 04/07/19at 09:04; Start 04/06/19 at 09:00 Vitamin B Complex/ Vitamin C (Lizzette-Jose Carlos) 1 tab DAILY PO Last administered on 04/07/19at 09:03; Start 04/06/19 at 09:00 Insulin Glargine (Lantus Syringe) 10 unit QHS SQ Last administered on 04/10/19at 21:00; Start 04/06/19 at 21:00 Magnesium Oxide (Magnesium Oxide) 400 mg DAILY PO Last administered on 04/07/19at 09:03; Start 04/06/19 at 09:00 Fish Oil (Fish Oil) 1,000 mg DAILY PO Last administered on 04/07/19at 09:03; Start 04/06/19 at 09:00 Aspirin (Abena Aspirin) 325 mg QHS PO ; Start 04/06/19 at 21:00; Stop 04/06/19 at 17:17; Status DC Ceftriaxone Sodium (Rocephin) 1 gm Q24H IVP Last administered on 04/10/19at 18:00; Start 04/06/19 at 17:00; Stop 04/10/19 at 17:01; Status DC Lactobacillus Rhamnosus (Culturelle) 1 cap BID PO Last administered on 04/07/19 at 09:03; Start 04/06/19 at 21:00; Stop 04/11/19 at 09:41; Status DC Acetaminophen (Tylenol) 650 mg PRN Q6HRS PRN PO TEMP > 100.4F; Start 04/06/19 at 17:15 Acetaminophen (Tylenol Supp) 650 mg PRN Q4HRS PRN OK TEMP > 100.4F; Start 04/06/19 at 17:15 Aspirin (Ecotrin) 325 mg DAILYWBKFT PO Last administered on 04/07/19at 09:03; Start 04/07/19 at 08:00 Aspirin (Aspirin Rectal Supp) 300 mg PRN DAILY PRN OK IF UNABLE TO TAKE PO Last administered on 04/08/19at 09:34; Start 04/06/19 at 17:15 Iohexol (Omnipaque 300 Mg/ml) 75 ml 1X ONCE IV Last administered on 04/07/19at 12:15; Start 04/07/19 at 12:15; Stop 04/07/19 at 12:16; Status DC Info (CONTRAST GIVEN -- Rx MONITORING) 1 each PRN DAILY PRN MC SEE COMMENTS; Start 04/07/19 at 12:15; Stop 04/09/19 at 12:14; Status DC Sodium Chloride 1,000 ml @ 50 mls/hr Q20H IV Last administered on 04/10/19at 04:47; Start 04/07/19 at 16:00; Stop 04/10/19 at 20:06; Status DC Insulin Human Lispro (HumaLOG) 0-7 UNITS TIDWMEALS SQ ; Start 04/08/19 at 08:00 Dextrose (Dextrose 50%-Water Syringe) 12.5 gm PRN Q15MIN PRN IV SEE COMMENTS Last administered on 04/07/19at 20:53; Start 04/07/19 at 20:15 Ondansetron HCl (Zofran) 4 mg PRN Q6HRS PRN IVP NAUSEA/VOMITING; Start 04/07/19 at 20:15 Potassium Chloride (Klor-Con) 40 meq 1X ONCE PO ; Start 04/08/19 at 08:45; Stop 04/08/19 at 08:46; Status DC Potassium Chloride/Water 50 ml @ 50 mls/hr 1X ONCE IV Last administered on 04/08/19at 13:16; Start 04/08/19 at 13:00; Stop 04/08/19 at 13:59; Status DC Amino Acids/ Glycerin/ Electrolytes 1,000 ml @ 80 mls/hr [id number] IV Last administered on 04/10/19at 23:14; Start 04/08/19 at 21:30 Barium Sulfate (Varibar Thin Liquid Apple) 148 gm 1X ONCE PO Last administered on 04/09/19at 11:00; Start 04/09/19 at 11:00; Stop 04/09/19 at 11:01; Status DC Ringer's Solution 1,000 ml @ 50 mls/hr Q20H IV ; Start 04/11/19 at 07:00; Stop 04/11/19 at 18:59 Ringer's Solution 1,000 ml @ 75 mls/hr 1X ONCE IV ; Start 04/11/19 at 07:30; Stop 04/11/19 at 20:49 Active Scripts Active [mac] 25 mg/ 5 ml 20 Ml PO 7 Days Macrobid 100 Mg Capsule (Nitrofurantoin Monohyd/M-Cryst) 100 Mg Capsule 1 Cap PO BID Reported Lantus Solostar (Insulin Glargine,Hum.rec.anlog) 100 Unit/1 Ml Insuln.pen 10 Unit SQ QHS Humalog (Insulin Lispro) 100 Unit/1 Ml Vial 5 Unit SQ TIDWMEALS Benazepril Hcl 40 Mg Tablet 40 Mg PO DAILY Fish Oil [place]-3 Softgel ([place]-3S/Dha/Epa/Fish Oil) 1 Each Capsule.dr 1 Each PO DAILY Renal Caps Softgel (Folic Acid/Vitamin B Comp W-C) 1 Mg Capsule 1 Mg PO DAILY Aspirin 325 Mg Tablet 325 Mg PO DAILY Magnesium (Magnesium Oxide) 400 Mg Capsule 500 Mg PO DAILY Gabapentin (Gabapentin) 300 Mg Capsule 300 Mg PO BID Vitals/I & O Vital Sign - Last 24 Hours 04/10/19 04/10/19 04/10/19 04/10/19 15:00 19:00 20:00 23:00 Temp 97.8 98.4 98.3 97.8 98.4 98.3 Pulse 80 84 79 Resp 18 18 18 B/P (MAP) 154/68 (96) 171/63 (99) 163/61 (95) Pulse Ox 95 97 98 O2 Delivery Room Air Room Air Room Air Room Air 04/11/19 04/11/19 04/11/19 04/11/19 03:00 07:00 08:00 11:00 Temp 98.1 98.3 98.1 98.1 98.3 98.1 Pulse 74 80 87 Resp 18 16 16 B/P (MAP) 162/46 (84) 125/74 (91) 131/48 (75) Pulse Ox 96 96 94 O2 Delivery Room Air Room Air Room Air Room Air Intake and Output 04/10/19 04/10/19 04/11/19 15:00 23:00 07:00 Intake Total 1000 ml Output Total 100 ml 100 ml Balance -100 ml 900 ml JUDY TEJEDA MD Apr 11, 2019 13:48
[2019-04-11] MEDS ORDERED: PROPOFOL 20 ML IV ONE (14:27)
--- NOTE | 2019-04-11 14:56 | PDOC4 ---
PROCEDURE Procedure EGD/balloon dilate/PEG Indication: OP dysphagia Meds: per anesthesia Findings: E--Moderate stricture at GEJ, ~33F. Partly dilated with scope, but balloon dilated to 45F to allow PEG passage. G--Small HH D--Normal to second portion. --20F g-tube placed uneventfully. Briefly re-scoped, confirming good position. Sailaja. well. IMP: HH Esophageal stricture, dilated. Successful PEG. REC: Water, meds OK per tube today. If no problems, start feedings in AM. PPI if not on. Abdominal binder. Thanks. SALTY COOPER MD Apr 11, 2019 14:56
[2019-04-11] MEDS: LANSOPRAZOLE 30 MG TAB.RAP.DR FT SCH (15:17)
[2019-04-11] MEDS: INSULIN GLARGINE SYRINGE. SQ SCH (20:25)
[2019-04-11] MEDS ORDERED: LABETALOL 20 MG/4 ML DISP.SYRIN. IVP ONE (21:00)
[2019-04-11] MEDS: cloNIDine HCL 0.2 MG TABLET PO SCH (23:16)
[2019-04-12 03:00] VITALS: BP 130/44
[2019-04-12] MEDS: cloNIDine HCL 0.2 MG TABLET PO SCH ×2 (05:42→14:00)
[2019-04-12] MEDS: LANSOPRAZOLE 30 MG TAB.RAP.DR FT SCH (05:43)
[2019-04-12 07:00] VITALS: BP 146/49
[2019-04-12] MEDS: AMINO AC 3%/ELECTROLYTE/GLYCER 1,000 ML IV SCH ×2 (07:25→08:10)
[2019-04-12] MEDS: INSULIN LISPRO 300 UNITS/3 ML VIAL. SQ SCH ×6 (08:00→16:55)
--- NOTE | 2019-04-12 08:25 | PDOC ---
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 Occlusion of right middle cerebral artery Metabolic encephalopathy, cleared, urinary tract infection Diabetic peripheral neuropathy. Favorable lipid profile Dysphagia - s/p PEG 04/11/19 Gen weakness FULL CODE History of Present Illness History of Present Illness Ms Mabry is an 88-year-old right-handed female whose daughter brought her in for altered mental status. She has been found to have an abnormal head CT and urinary tract infection. She is feeling better today. At baseline, the patient lives on her own and get some help from the family. She gets around with a walker or a wheelchair because of her neuropathy. MRI confirmed right temporal lobe and right parietal lobe and posterior right frontal lobe infarcts and CTA showed occlusion of right MCA. NPO, [employer] discussed, Video swallow completely failed, will not repeat. S/P PEG on 04/11 with concomitant esophageal dilation. Patient does not complain of anything except she wants rye bread Came from [facility], agreeable to SNU PLAN: S/p PEG, initiate feeds now FULL CODE for now Cont procalamine for now SNU approved, likely d/c tomorrow Vitals Vitals Vital Signs Date Time Temp Pulse Resp B/P (MAP) Pulse Ox O2 Delivery O2 Flow Rate FiO2 04/12/19 07:00 98.3 65 20 146/49 (81) 95 Room Air 98.3 04/11/19 14:55 2 Physical Exam Physical Exam VITALS: Within normal limits and are stable. GENERAL: No apparent distress. Alert and oriented.SOME NEW [place]URRED SPEECH TODAY NOTED HEENT: Head is normocephalic, atraumatic, pupils were equally round and reactive to light and accommodation. NECK: Supple, no JVD, no thyromegaly was noted. LUNGS: Clear to auscultation in all lung english without rhonchi or wheezing. HEART: RRR, S1, S2 present. Peripheral pulses intact, no obvious murmurs were noted. ABDOMEN: Soft, nontender. Positive bowel sounds no organomegaly, normal bowel sounds. EXTREMITIES: feet bunion, the biggest I have ever seen. The toes are pressured together also on the left. NEUROLOGIC: confused. PSYCHIATRIC: Normal affect, normal mood. Stable. SKIN: No ulcerations or rashes, good skin turgor, no jaundice. VASCULAR: Good capillary refill, neurovascular bundle appears to be intact. General: Cooperative, No acute distress Heart: Regular rate, No murmurs Lungs: Clear Abdomen: Soft, No tenderness Extremities: No clubbing, No cyanosis, No edema Labs LABS Laboratory Tests Test 04/11/19 11:50 04/11/19 16:07 04/11/19 20:18 04/12/19 07:36 Glucose (Fingerstick) 97 mg/dL (70-99) 69 mg/dL (70-99) 132 mg/dL (70-99) 183 mg/dL (70-99) Assessment and Plan Assessmemt and Plan Problems Medical Problems: (1) Altered mental status Status: Acute Comment Review of Relevant I have reviewed the following items nathaniel (where applicable) has been applied. Labs Laboratory Tests Test 04/10/19 09:30 04/10/19 11:34 04/10/19 16:11 04/10/19 21:24 Sodium Level 135 mmol/L (136-145) Potassium Level 3.9 mmol/L (3.5-5.1) Chloride Level 99 mmol/L (98-107) Carbon Dioxide Level 26 mmol/L (21-32) Anion Gap 10 (6-14) Blood Urea Nitrogen 21 mg/dL (7-20) Creatinine 0.7 mg/dL (0.6-1.0) Estimated GFR (Cockcroft-Gault) 79.0 Glucose Level 187 mg/dL (70-99) Calcium Level 9.2 mg/dL (8.5-10.1) Magnesium Level 2.4 mg/dL (1.8-2.4) Glucose (Fingerstick) 169 mg/dL (70-99) 173 mg/dL (70-99) 164 mg/dL (70-99) Test 04/11/19 08:01 04/11/19 11:50 04/11/19 16:07 04/11/19 20:18 Glucose (Fingerstick) 164 mg/dL (70-99) 97 mg/dL (70-99) 69 mg/dL (70-99) 132 mg/dL (70-99) Test 04/12/19 07:36 Glucose (Fingerstick) 183 mg/dL (70-99) Laboratory Tests Test 04/11/19 11:50 04/11/19 16:07 04/11/19 20:18 04/12/19 07:36 Glucose (Fingerstick) 97 mg/dL (70-99) 69 mg/dL (70-99) 132 mg/dL (70-99) 183 mg/dL (70-99) Microbiology 04/05/19 Urine Culture - Final, Complete 04/05/19 Urine Culture Result 1 (JESS) - Final, Complete 04/05/19 Blood Culture - Final, Complete NO GROWTH AFTER 5 DAYS Medications Current Medications Sodium Chloride 1,000 ml @ 1,000 mls/hr 1X ONCE IV Last administered on 04/05/19at 18:20; Start 04/05/19 at 17:45; Stop 04/05/19 at 18:44; Status DC Ondansetron HCl (Zofran) 4 mg PRN Q8HRS PRN IV NAUSEA/VOMITING; Start 04/05/19 at 19:15; Stop 04/06/19 at 19:14; Status DC Fentanyl Citrate (Fentanyl 2ml Vial) 50 mcg PRN Q1HR PRN IV PAIN; Start 04/05/19 at 19:15; Stop 04/06/19 at 19:14; Status UNV Acetaminophen (Tylenol) 650 mg PRN Q4HRS PRN PO FEVER; Start 04/05/19 at 19:15; Stop 04/06/19 at 19:14; Status DC Aspirin (Abena Aspirin) 325 mg DAILY PO ; Start 04/06/19 at 09:00; Stop 1 at 11:02; Status DC Gabapentin (Neurontin) 300 mg BID PO Last administered on 04/11/19at 20:22; Start 04/06/19 at 09:00 Insulin Human Lispro (HumaLOG) 5 units TIDWMEALS SQ Last administered on 04/11/19at 12:13; Start 04/06/19 at 08:00 Lisinopril (Prinivil) 40 mg DAILY PO Last administered on 04/07/19at 09:04; Start 04/06/19 at 09:00 Vitamin B Complex/ Vitamin C (Lizzette-Jose Carlos) 1 tab DAILY PO Last administered on 04/07/19at 09:03; Start 04/06/19 at 09:00 Insulin Glargine (Lantus Syringe) 10 unit QHS SQ Last administered on 04/11/19at 20:25; Start 04/06/19 at 21:00 Magnesium Oxide (Magnesium Oxide) 400 mg DAILY PO Last administered on 04/07/19 09:03; Start 04/06/19 at 09:00 Fish Oil (Fish Oil) 1,000 mg DAILY PO Last administered on 04/07/19 09:03; Start 04/06/19 at 09:00 Aspirin (Abena Aspirin) 325 mg QHS PO ; Start 04/06/19 at 21:00; Stop 04/06/19 at 17:17; Status DC Ceftriaxone Sodium (Rocephin) 1 gm Q24H IVP Last administered on 04/10/19 18:00; Start 04/06/19 at 17:00; Stop 04/10/19 at 17:01; Status DC Lactobacillus Rhamnosus (Culturelle) 1 cap BID PO Last administered on 04/07/19 09:03; Start 04/06/19 at 21:00; Stop 04/11/19 at 09:41; Status DC Acetaminophen (Tylenol) 650 mg PRN Q6HRS PRN PO TEMP > 100.4F; Start 04/06/19 at 17:15 Acetaminophen (Tylenol Supp) 650 mg PRN Q4HRS PRN CA TEMP > 100.4F; Start 04/06/19 at 17:15 Aspirin (Ecotrin) 325 mg DAILYWBKFT PO Last administered on 04/07/19at 09:03; Start 04/07/19 at 08:00 Aspirin (Aspirin Rectal Supp) 300 mg PRN DAILY PRN CA IF UNABLE TO TAKE PO Last administered on 04/08/19at 09:34; Start 04/06/19 at 17:15 Iohexol (Omnipaque 300 Mg/ml) 75 ml 1X ONCE IV Last administered on 04/07/19at 12:15; Start 04/07/19 at 12:15; Stop 04/07/19 at 12:16; Status DC Info (CONTRAST GIVEN -- Rx MONITORING) 1 each PRN DAILY PRN MC SEE COMMENTS; Start 04/07/19 at 12:15; Stop 04/09/19 at 12:14; Status DC Sodium Chloride 1,000 ml @ 50 mls/hr Q20H IV Last administered on 04/10/19at 04:47; Start 04/07/19 at 16:00; Stop 04/10/19 at 20:06; Status DC Insulin Human Lispro (HumaLOG) 0-7 UNITS TIDWMEALS SQ ; Start 04/08/19 at 08:00 Dextrose (Dextrose 50%-Water Syringe) 12.5 gm PRN Q15MIN PRN IV SEE COMMENTS Last administered on 04/07/19at 20:53; Start 04/07/19 at 20:15 Ondansetron HCl (Zofran) 4 mg PRN Q6HRS PRN IVP NAUSEA/VOMITING; Start 04/07/19 at 20:15 Potassium Chloride (Klor-Con) 40 meq 1X ONCE PO ; Start 04/08/19 at 08:45; Stop 04/08/19 at 08:46; Status DC Potassium Chloride/Water 50 ml @ 50 mls/hr 1X ONCE IV Last administered on 04/08/19at 13:16; Start 04/08/19 at 13:00; Stop 04/08/19 at 13:59; Status DC Amino Acids/ Glycerin/ Electrolytes 1,000 ml @ 80 mls/hr [id number] IV Last administered on 04/12/19at 08:10; Start 04/08/19 at 21:30 Barium Sulfate (Varibar Thin Liquid Apple) 148 gm 1X ONCE PO Last administered on 04/09/19at 11:00; Start 04/09/19 at 11:00; Stop 04/09/19 at 11:01; Status DC Ringer's Solution 1,000 ml @ 50 mls/hr Q20H IV Last administered on 04/11/19at 14:25; Start 04/11/19 at 07:00; Stop 04/11/19 at 18:59; Status DC Ringer's Solution 1,000 ml @ 75 mls/hr 1X ONCE IV Last administered on 04/11/19at 14:00; Start 04/11/19 at 07:30; Stop 04/11/19 at 20:49; Status DC Propofol 20 ml @ As Directed STK-MED ONCE IV ; Start 04/11/19 at 14:27; Stop 04/11/19 at 14:27; Status DC Lansoprazole (Prevacid) 30 mg DAILYAC FT Last administered on 04/12/19at 05:43; Start 04/11/19 at 15:30 Clonidine HCl (Catapres) 0.2 mg Q8HRS PO Last administered on 04/11/19at 23:16; Start 04/11/19 at 22:00 Labetalol HCl (Normodyne Iv Push) 20 mg 1X ONCE IVP Last administered on 04/11/19at 21:11; Start 04/11/19 at 21:00; Stop 04/11/19 at 21:01; Status DC Active Scripts Active [mac] 25 mg/ 5 ml 20 Ml PO 7 Days Macrobid 100 Mg Capsule (Nitrofurantoin Monohyd/M-Cryst) 100 Mg Capsule 1 Cap PO BID Reported Lantus Solostar (Insulin Glargine,Hum.rec.anlog) 100 Unit/1 Ml Insuln.pen 10 Unit SQ QHS Humalog (Insulin Lispro) 100 Unit/1 Ml Vial 5 Unit SQ TIDWMEALS Benazepril Hcl 40 Mg Tablet 40 Mg PO DAILY Fish Oil [place]-3 Softgel ([place]-3S/Dha/Epa/Fish Oil) 1 Each Capsule. 1 Each PO DAILY Renal Caps Softgel (Folic Acid/Vitamin B Comp W-C) 1 Mg Capsule 1 Mg PO DAILY Aspirin 325 Mg Tablet 325 Mg PO DAILY Magnesium (Magnesium Oxide) 400 Mg Capsule 500 Mg PO DAILY Gabapentin (Gabapentin) 300 Mg Capsule 300 Mg PO BID Vitals/I & O Vital Sign - Last 24 Hours 04/11/19 04/11/19 04/11/19 04/11/19 11:00 14:55 15:10 15:20 Temp 98.1 98.1 98.1 98.1 98.1 98.1 98.1 98.1 Pulse 87 74 71 78 Resp 16 20 20 20 B/P (MAP) 131/48 (75) 140/63 148/65 157/68 Pulse Ox 94 97 97 94 O2 Delivery Room Air Room Air Room Air Room Air O2 Flow Rate 2 04/11/19 04/11/19 04/11/19 04/11/19 15:30 15:43 16:00 16:15 Temp 98.1 98.1 Pulse 79 77 84 83 Resp 20 B/P (MAP) 149/79 151/58 (89) 130/59 (82) 125/71 (89) Pulse Ox 97 95 96 95 O2 Delivery Room Air Room Air 10/1704/11/19 04/11/19 04/11/19 16:30 17:01 17:34 18:00 Pulse 101 84 86 90 B/P (MAP) 146/97 (113) 155/86 (109) 179/68 (105) 176/65 (102) Pulse Ox 95 96 95 94 O2 Delivery Room Air Room Air 04/11/19 04/11/19 04/11/19 04/11/19 20:00 20:33 20:35 21:10 Pulse 84 84 84 B/P (MAP) 200/59 (106) 195/64 (107) 195/59 (104) Pulse Ox 97 O2 Delivery Room Air Room Air 04/11/19 04/11/19 04/11/19 04/12/19 21:11 23:10 23:16 03:00 Temp 97.7 97.6 97.7 97.6 Pulse 84 96 77 72 Resp 18 18 B/P (MAP) 195/59 137/75 (95) 153/47 130/44 (72) Pulse Ox 96 96 O2 Delivery Room Air Room Air 04/12/19 04/12/19 05:42 07:00 Temp 98.3 98.3 Pulse 73 65 Resp 20 B/P (MAP) 135/47 146/49 (81) Pulse Ox 95 O2 Delivery Room Air Intake and Output 04/11/19 04/11/19 04/12/19 14:59 22:59 06:59 Intake Total 100 ml 600 ml 180 ml Output Total 100 ml Balance 100 ml 500 ml 180 ml RAMON BENITES MD Apr 12, 2019 08:25
--- NOTE | 2019-04-12 09:01 | PDOC ---
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 Occlusion of right middle cerebral artery Metabolic encephalopathy, cleared, urinary tract infection Diabetic peripheral neuropathy. Favorable lipid profile Dysphagia, Status-post PEG Plan Switch to medications via PEG Continue aspirin Given patient's age and lipid panel results, I believe the risks outweigh the benefits of a statin Rehabilitation modalities, will need SNU Subjective Hungry Objective Vital Signs Date Time Temp Pulse Resp B/P (MAP) Pulse Ox O2 Delivery O2 Flow Rate FiO2 04/12/19 07:00 98.3 65 20 146/49 (81) 95 Room Air 98.3 04/11/19 14:55 2 Intake and Output 04/12/19 07:00 Intake Total 880 ml Output Total 100 ml Balance 780 ml Intake Oral 0 ml IV Total 700 ml Other 180 ml Output Urine Total 100 ml # Voids 7 # Bowel Movements 1 PHYSICAL EXAM Alert. Oriented to time, place and person. Doesn't remember getting PEG yesterday PERRL. EOMI. CN: Left central facial weakness, dysarthric speech Muscle tone: normal. Muscle strength: 4/5 on left DTR: 1+ Plantar reflex: flexor Gait: not examined in bed. Sensory exam: stocking loss. No cerebellar signs elicited. Review of Relevant I have reviewed the following items nathaniel (where applicable) has been applied. Labs Laboratory Tests Test 04/10/19 09:30 04/10/19 11:34 04/10/19 16:11 04/10/19 21:24 Sodium Level 135 mmol/L (136-145) Potassium Level 3.9 mmol/L (3.5-5.1) Chloride Level 99 mmol/L (98-107) Carbon Dioxide Level 26 mmol/L (21-32) Anion Gap 10 (6-14) Blood Urea Nitrogen 21 mg/dL (7-20) Creatinine 0.7 mg/dL (0.6-1.0) Estimated GFR (Cockcroft-Gault) 79.0 Glucose Level 187 mg/dL (70-99) Calcium Level 9.2 mg/dL (8.5-10.1) Magnesium Level 2.4 mg/dL (1.8-2.4) Glucose (Fingerstick) 169 mg/dL (70-99) 173 mg/dL (70-99) 164 mg/dL (70-99) Test 04/11/19 08:01 04/11/19 11:50 04/11/19 16:07 04/11/19 20:18 Glucose (Fingerstick) 164 mg/dL (70-99) 97 mg/dL (70-99) 69 mg/dL (70-99) 132 mg/dL (70-99) Test 04/12/19 07:36 Glucose (Fingerstick) 183 mg/dL (70-99) Laboratory Tests Test 04/11/19 11:50 04/11/19 16:07 04/11/19 20:18 04/12/19 07:36 Glucose (Fingerstick) 97 mg/dL (70-99) 69 mg/dL (70-99) 132 mg/dL (70-99) 183 mg/dL (70-99) Microbiology 04/05/19 Urine Culture - Final, Complete 04/05/19 Urine Culture Result 1 (JESS) - Final, Complete 04/05/19 Blood Culture - Final, Complete NO GROWTH AFTER 5 DAYS Medications Current Medications Sodium Chloride 1,000 ml @ 1,000 mls/hr 1X ONCE IV Last administered on 04/05/19at 18:20; Start 04/05/19 at 17:45; Stop 04/05/19 at 18:44; Status DC Ondansetron HCl (Zofran) 4 mg PRN Q8HRS PRN IV NAUSEA/VOMITING; Start 04/05/19 at 19:15; Stop 04/06/19 at 19:14; Status DC Fentanyl Citrate (Fentanyl 2ml Vial) 50 mcg PRN Q1HR PRN IV PAIN; Start 04/05/19 at 19:15; Stop 04/06/19 at 19:14; Status UNV Acetaminophen (Tylenol) 650 mg PRN Q4HRS PRN PO FEVER; Start 04/05/19 at 19:15; Stop 04/06/19 at 19:14; Status DC Aspirin (Abena Aspirin) 325 mg DAILY PO ; Start 04/06/19 at 09:00; Stop 04/06/19 at 11:02; Status DC Gabapentin (Neurontin) 300 mg BID PO Last administered on 04/11/19at 20:22; Start 04/06/19 at 09:00 Insulin Human Lispro (HumaLOG) 5 units TIDWMEALS SQ Last administered on 04/11/19 12:13; Start 04/06/19 at 08:00 Lisinopril (Prinivil) 40 mg DAILY PO Last administered on 04/07/19 09:04; Start 04/06/19 at 09:00 Vitamin B Complex/ Vitamin C (Lizzette-Jose Carlos) 1 tab DAILY PO Last administered on 04/07/19 09:03; Start 04/06/19 at 09:00 Insulin Glargine (Lantus Syringe) 10 unit QHS SQ Last administered on 04/11/19 20:25; Start 04/06/19 at 21:00 Magnesium Oxide (Magnesium Oxide) 400 mg DAILY PO Last administered on 04/07/19 09:03; Start 04/06/19 at 09:00 Fish Oil (Fish Oil) 1,000 mg DAILY PO Last administered on 04/07/19 09:03; Start 04/06/19 at 09:00 Aspirin (Abena Aspirin) 325 mg QHS PO ; Start 04/06/19 at 21:00; Stop 04/06/19 at 17:17; Status DC Ceftriaxone Sodium (Rocephin) 1 gm Q24H IVP Last administered on 04/10/19 18:00; Start 04/06/19 at 17:00; Stop 04/10/19 at 17:01; Status DC Lactobacillus Rhamnosus (Culturelle) 1 cap BID PO Last administered on 04/07/19 09:03; Start 04/06/19 at 21:00; Stop 04/11/19 at 09:41; Status DC Acetaminophen (Tylenol) 650 mg PRN Q6HRS PRN PO TEMP > 100.4F; Start 04/06/19 at 17:15 Acetaminophen (Tylenol Supp) 650 mg PRN Q4HRS PRN NV TEMP > 100.4F; Start 04/06/19 at 17:15 Aspirin (Ecotrin) 325 mg DAILYWBKFT PO Last administered on 04/07/19 09:03; Start 04/07/19 at 08:00 Aspirin (Aspirin Rectal Supp) 300 mg PRN DAILY PRN NV IF UNABLE TO TAKE PO Last administered on 04/08/19 09:34; Start 04/06/19 at 17:15 Iohexol (Omnipaque 300 Mg/ml) 75 ml 1X ONCE IV Last administered on 04/07/19at 12:15; Start 04/07/19 at 12:15; Stop 04/07/19 at 12:16; Status DC Info (CONTRAST GIVEN -- Rx MONITORING) 1 each PRN DAILY PRN MC SEE COMMENTS; Start 04/07/19 at 12:15; Stop 04/09/19 at 12:14; Status DC Sodium Chloride 1,000 ml @ 50 mls/hr Q20H IV Last administered on 04/10/19at 04:47; Start 04/07/19 at 16:00; Stop 04/10/19 at 20:06; Status DC Insulin Human Lispro (HumaLOG) 0-7 UNITS TIDWMEALS SQ ; Start 04/08/19 at 08:00 Dextrose (Dextrose 50%-Water Syringe) 12.5 gm PRN Q15MIN PRN IV SEE COMMENTS Last administered on 04/07/19at 20:53; Start 04/07/19 at 20:15 Ondansetron HCl (Zofran) 4 mg PRN Q6HRS PRN IVP NAUSEA/VOMITING; Start 04/07/19 at 20:15 Potassium Chloride (Klor-Con) 40 meq 1X ONCE PO ; Start 04/08/19 at 08:45; Stop 04/08/19 at 08:46; Status DC Potassium Chloride/Water 50 ml @ 50 mls/hr 1X ONCE IV Last administered on 04/08/19at 13:16; Start 04/08/19 at 13:00; Stop 04/08/19 at 13:59; Status DC Amino Acids/ Glycerin/ Electrolytes 1,000 ml @ 80 mls/hr [id number] IV Last administered on 04/12/19at 08:10; Start 04/08/19 at 21:30 Barium Sulfate (Varibar Thin Liquid Apple) 148 gm 1X ONCE PO Last administered on 04/09/19at 11:00; Start 04/09/19 at 11:00; Stop 04/09/19 at 11:01; Status DC Ringer's Solution 1,000 ml @ 50 mls/hr Q20H IV Last administered on 04/11/19at 14:25; Start 04/11/19 at 07:00; Stop 04/11/19 at 18:59; Status DC Ringer's Solution 1,000 ml @ 75 mls/hr 1X ONCE IV Last administered on 04/11/19at 14:00; Start 04/11/19 at 07:30; Stop 04/11/19 at 20:49; Status DC Propofol 20 ml @ As Directed STK-MED ONCE IV ; Start 04/11/19 at 14:27; Stop 04/11/19 at 14:27; Status DC Lansoprazole (Prevacid) 30 mg DAILYAC FT Last administered on 04/12/19at 05:43; Start 04/11/19 at 15:30 Clonidine HCl (Catapres) 0.2 mg Q8HRS PO Last administered on 04/11/19at 23:16; Start 04/11/19 at 22:00 Labetalol HCl (Normodyne Iv Push) 20 mg 1X ONCE IVP Last administered on 04/11/19at 21:11; Start 04/11/19 at 21:00; Stop 04/11/19 at 21:01; Status DC Active Scripts Active [mac] 25 mg/ 5 ml 20 Ml PO 7 Days Macrobid 100 Mg Capsule (Nitrofurantoin Monohyd/M-Cryst) 100 Mg Capsule 1 Cap PO BID Reported Lantus Solostar (Insulin Glargine,Hum.rec.anlog) 100 Unit/1 Ml Insuln.pen 10 Un it SQ QHS Humalog (Insulin Lispro) 100 Unit/1 Ml Vial 5 Unit SQ TIDWMEALS Benazepril Hcl 40 Mg Tablet 40 Mg PO DAILY Fish Oil [place]-3 Softgel ([place]-3S/Dha/Epa/Fish Oil) 1 Each Capsule. 1 Each PO DAILY Renal Caps Softgel (Folic Acid/Vitamin B Comp W-C) 1 Mg Capsule 1 Mg PO DAILY Aspirin 325 Mg Tablet 325 Mg PO DAILY Magnesium (Magnesium Oxide) 400 Mg Capsule 500 Mg PO DAILY Gabapentin (Gabapentin) 300 Mg Capsule 300 Mg PO BID Vitals/I & O Vital Sign - Last 24 Hours 04/11/19 04/11/19 04/11/19 04/11/19 11:00 14:55 15:10 15:20 Temp 98.1 98.1 98.1 98.1 98.1 98.1 98.1 98.1 Pulse 87 74 71 78 Resp 16 20 20 20 B/P (MAP) 131/48 (75) 140/63 148/65 157/68 Pulse Ox 94 97 97 94 O2 Delivery Room Air Room Air Room Air Room Air O2 Flow Rate 2 04/11/19 04/11/19 04/11/19 04/11/19 15:30 15:43 16:00 16:15 Temp 98.1 98.1 Pulse 79 77 84 83 Resp 20 B/P (MAP) 149/79 151/58 (89) 130/59 (82) 125/71 (89) Pulse Ox 97 95 96 95 O2 Delivery Room Air Room Air 04/11/19 04/11/19 04/11/19 04/11/19 16:30 17:01 17:34 18:00 Pulse 101 84 86 90 B/P (MAP) 146/97 (113) 155/86 (109) 179/68 (105) 176/65 (102) Pulse Ox 95 96 95 94 O2 Delivery Room Air Room Air 04/11/19 04/11/19 04/11/19 04/11/19 20:00 20:33 20:35 21:10 Pulse 84 84 84 B/P (MAP) 200/59 (106) 195/64 (107) 195/59 (104) Pulse Ox 97 O2 Delivery Room Air Room Air 04/11/19 04/11/19 04/11/19 04/12/19 21:11 23:10 23:16 03:00 Temp 97.7 97.6 97.7 97.6 Pulse 84 96 77 72 Resp 18 18 B/P (MAP) 195/59 137/75 (95) 153/47 130/44 (72) Pulse Ox 96 96 O2 Delivery Room Air Room Air 04/12/19 04/12/19 05:42 07:00 Temp 98.3 98.3 Pulse 73 65 Resp 20 B/P (MAP) 135/47 146/49 (81) Pulse Ox 95 O2 Delivery Room Air Intake and Output 04/11/19 04/11/19 04/12/19 15:00 23:00 07:00 Intake Total 100 ml 600 ml 180 ml Output Total 100 ml Balance 100 ml 500 ml 180 ml JUDY TEJEDA MD Apr 12, 2019 09:01
[2019-04-12] MEDS: FOLIC/VIT B COMP W-C (RENAL) TABLET. PO SCH (09:32)
[2019-04-12] MEDS: MAGNESIUM OXIDE 400 MG TABLET PO SCH (09:32)
[2019-04-12] MEDS: ASPIRIN ENTERIC COATED 325 MG TABLET.DR. PO SCH (09:33)
[2019-04-12] MEDS: OMEGA-3 FATTY ACIDS/FISH OIL 1,000 MG CAPSULE. PO SCH (09:33)
[2019-04-12] MEDS: LISINOPRIL 20 MG TABLET PO SCH (09:33)
[2019-04-12] MEDS: GABAPENTIN 300 MG CAPSULE. PO SCH (09:33)
[2019-04-12 11:00] VITALS: BP 105/67
--- NOTE | 2019-04-12 11:24 | PDOC ---
Subjective: Subjective: No abd pain. "They said I could eat today and I'm hungry, but I know... liquids only." Objective: Objective: No issues w/ PEG per nurse. Vital Signs: Vital Signs Date Time Temp Pulse Resp B/P (MAP) Pulse Ox O2 Delivery O2 Flow Rate FiO2 04/12/19 09:33 65 146/49 04/12/19 07:00 98.3 20 95 Room Air 98.3 04/11/19 14:55 2 Labs: Laboratory Tests Test 04/11/19 11:50 04/11/19 16:07 04/11/19 20:18 04/12/19 07:36 Glucose (Fingerstick) 97 mg/dL 69 mg/dL 132 mg/dL 183 mg/dL BLOOD CULTURE Final NO GROWTH AFTER 5 DAYS PE: GEN: NAD - on commode LUNGS: room air HEART: RRR ABD: removed gauze from under PEG, loosened bumper a bit, abd soft and non- tender NEURO/PSYCH: awake and alert, talking about tea A/P: CVA, dysphagia S/p PEG placement 04/11/19 -- Plans to start PEG feeds. PPN per primary. GRISEL WINSTON Apr 12, 2019 11:24
[2019-04-12] MEDS ORDERED: INSU100I11 SQ (12:53)
[2019-04-12] MEDS ORDERED: ATOR40TA59 PO (12:53)
[2019-04-12] MEDS ORDERED: LANS30TA6 FT (12:53)
[2019-04-12] MEDS ORDERED: ACET325T9 PO (12:53)
[2019-04-12] MEDS ORDERED: CLON0.2T10 PO (12:53)
--- NOTE | 2019-04-12 12:56 | SNU/HH DC ---
DISCHARGE ORDERS DISCHARGE INFORMATION: DISCHARGE DATE: Apr 12, 2019 FINAL DIAGNOSIS Problems Medical Problems: (1) Altered mental status Status: Acute CONDITION ON DISCHARGE: Stable CODE STATUS: Code Status: Full USP: SNF STAY <30 DAYS: Yes POST DISCHARGE ORDERS: ACTIVITY ORDERS: Resume previous activity WEIGHT BEARING STATUS: Full weight bearing DIET AFTER DISCHARGE: NPO (PEG FEEDS) WOUND/INCISION CARE: Ice to area for comfort, Change dressing CHECKS AFTER DISCHARGE: CHECKS AFTER DISCHARGE: Check blood press - daily, Check blood sugar, ac/hs, Check your Temp as needed, Weigh Yourself Daily TREATMENT/EQUIPMENT ORDERS: INFUSION EQUIPMENT NEEDED: Feeding Tube (TF : JEVITY @ 50 ml/hr, 150 ml q 6 hr flushes) Physical Therapy For: Evalulation/Treatment Occupational Therapy For: Evaluation/Treatment Speech Language Pathology For: Evaluation/Treatment DISCHARGE MEDICATIONS: Home Meds Active Scripts Atorvastatin Calcium (ATORVASTATIN CALCIUM) 40 Mg Tablet, 1 TAB PO QHS for CVA for 30 Days, #30 TAB 3 Refills Prov:RAMON BENITES MD 04/12/19 Insulin Lispro (HUMALOG) 100 Unit/1 Ml Insuln.pen, 0 UNITS SQ TIDWMEALS for DM2 for 30 Days, #1 EACH Sliding scale BG - 151-200 - 3u BG - 201-250 - 4u BG - 251-300 - 6u BG - 301-350 - 7u BG >350 Call Prov:RAMON BENITES MD 04/12/19 Lansoprazole (PREVACID) 30 Mg Tab.rap.dr, 30 MG FT DAILYAC for GERD for 30 Days, #30 TAB Prov:RAMON BENITES MD 04/12/19 Acetaminophen (TYLENOL) 325 Mg Tablet, 650 MG PO PRN Q6HRS PRN for TEMP > 100.4F for 30 Days, #120 TAB Prov:RAMON BENITES MD 04/12/19 Clonidine Hcl (CATAPRES) 0.2 Mg Tablet, 0.2 MG PO Q8HRS for HTN for 30 Days, #90 TAB Prov:RAMON BENITES MD 04/12/19 [mac] 25 mg/ 5 ml No Conflict Check, 20 ML PO for 7 Days, #280 ML 0 Refills Prov:DEWEY SARGENT MD 03/28/19 Reported Medications Insulin Glargine,Hum.rec.anlog (LANTUS SOLOSTAR) 100 Unit/1 Ml Insuln.pen, 10 UNIT SQ QHS for diabetes, #15 ML 3 Refills 04/06/19 Insulin Lispro (HUMALOG) 100 Unit/1 Ml Vial, 5 UNIT SQ TIDWMEALS for diabetes, VIAL 04/06/19 Benazepril Hcl (BENAZEPRIL HCL) 40 Mg Tablet, 40 MG PO DAILY for hypertension, T AB 04/06/19 [place]-3S/Dha/Epa/Fish Oil (Fish Oil [place]-3 Softgel) 1 Each Capsule.dr, 1 EACH PO DAILY for supplement, CAP 04/06/19 Folic Acid/Vitamin B Comp W-C (RENAL CAPS SOFTGEL) 1 Mg Capsule, 1 MG PO DAILY for supplement, CAP 04/06/19 Aspirin (ASPIRIN) 325 Mg Tablet, 325 MG PO DAILY for anti-platelet, TAB 04/06/19 Magnesium Oxide (MAGNESIUM) 400 Mg Capsule, 500 MG PO DAILY for constipation, CAP 04/06/19 Gabapentin (GABAPENTIN ) 300 Mg Capsule, 300 MG PO BID for NEUROGENIC PAIN, CAP 04/06/19 Discontinued Scripts Nitrofurantoin Monohyd/M-Cryst (MACROBID 100 MG CAPSULE) 100 Mg Capsule, 1 CAP PO BID, #14 CAP Prov:ORQUIDEA LEE APRN 03/28/19 RAMON BENITES MD Apr 12, 2019 12:56
--- NOTE | 2019-04-12 13:18 | NUR ---
See orders and interventions. Tube feeding initiated per order. Patient verb. understanding POC. Continue cares and monitor.
--- NOTE | 2019-04-12 13:38 | PDOC3 ---
Discharge Summary Visit Information Date of Admission: Apr 05, 2019 Date of Discharge: Apr 12, 2019 Admitting Diagnosis: Acute CVA Final Diagnosis Problems Medical Problems: (1) Altered mental status Status: Acute Brief Hospital Course Allergies Allergies Coded Allergies Type Severity Reaction Last Updated Verified Tetracyclines Allergy Intermediate 04/11/19 Yes amitriptyline Allergy Intermediate 04/11/19 Yes codeine Allergy Intermediate 04/11/19 Yes coffee (Coffea arabica) Allergy Intermediate 04/11/19 Yes erythromycin base Allergy Intermediate 04/11/19 Yes meperidine Allergy Intermediate 04/11/19 Yes morphine Allergy Intermediate 03/27/16 Yes prednisone Allergy Intermediate 03/27/16 Yes sucralose Allergy Intermediate 03/27/16 Yes Vital Signs Vital Signs Date Time Temp Pulse Resp B/P (MAP) Pulse Ox O2 Delivery O2 Flow Rate FiO2 04/12/19 11:00 98.2 68 20 105/67 (80) 93 Room Air 98.2 04/11/19 14:55 2 Lab Results Laboratory Tests Test 04/10/19 16:11 04/10/19 21:24 04/11/19 08:01 04/11/19 11:50 Glucose (Fingerstick) 173 mg/dL (70-99) 164 mg/dL (70-99) 164 mg/dL (70-99) 97 mg/dL (70-99) Test 04/11/19 16:07 04/11/19 20:18 04/12/19 07:36 04/12/19 11:43 Glucose (Fingerstick) 69 mg/dL (70-99) 132 mg/dL (70-99) 183 mg/dL (70-99) 179 mg/dL (70-99) Laboratory Tests Test 04/11/19 16:07 04/11/19 20:18 04/12/19 07:36 04/12/19 11:43 Glucose (Fingerstick) 69 mg/dL (70-99) 132 mg/dL (70-99) 183 mg/dL (70-99) 179 mg/dL (70-99) Brief Hospital Course Ms Mabry is an 88-year-old right-handed female whose daughter brought her in for altered mental status. She has been found to have an abnormal head CT and urinary tract infection. She is feeling better today. At baseline, the patient lives on her own and get some help from the family. She gets around with a walker or a wheelchair because of her neuropathy. MRI confirmed right temporal lobe and right parietal lobe and posterior right frontal lobe infarcts and CTA showed occlusion of right MCA. Seen by Neurology, recommended 325mg ASA daily, statin. After 30 days can change to 325mg ASA. NPO, [employer] discussed, Video swallow completely failed, will not repeat. S/P PEG on 04/11 with concomitant esophageal dilation. 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 Occlusion of right middle cerebral artery Metabolic encephalopathy, cleared, urinary tract infection Diabetic peripheral neuropathy. Favorable lipid profile Dysphagia - s/p PEG 04/11/19 Gen weakness PLAN: S/p PEG, initiate feeds now - glucerna 1.2, goal 50cc/hr FULL CODE for now SNU approved Discharge Information Condition at Discharge: Improved Follow Up: Weeks (2) Disposition/Orders: D/C to Another Facility Scheduled Aspirin (Aspirin) 325 Mg Tablet, 325 MG PO DAILY for anti-platelet, (Reported) Entered as Reported by: JEAN BUNN RN on 04/06/19453 Last Taken: Unknown Dose on 04/05/19 Last Action: Continued on 04/06/19736 by ROULA COLBERT RN Atorvastatin Calcium (Atorvastatin Calcium) 40 Mg Tablet, 1 TAB PO QHS for CVA for 30 Days, #30 Ref 3 Prescribed by: RAMON BENITES MD on 04/12/19 1253 Benazepril Hcl (Benazepril Hcl) 40 Mg Tablet, 40 MG PO DAILY for hypertension, (Reported) Entered as Reported by: JEAN BUNN RN on 04/06/19453 Last Taken: Unknown Dose on 04/05/19 Last Action: Converted on 04/06/19736 by ROULA COLBERT RN Clonidine Hcl (Catapres) 0.2 Mg Tablet, 0.2 MG PO Q8HRS for HTN for 30 Days, #90 Prescribed by: RAMON BENITES MD on 04/12/19 1253 Folic Acid/Vitamin B Comp W-C (Renal Caps Softgel) 1 Mg Capsule, 1 MG PO DAILY for supplement, (Reported) Entered as Reported by: JEAN BUNN RN on 04/06/19453 Last Taken: Unknown Dose on 04/05/19 Last Action: Converted on 04/06/19736 by ROULA COLBERT RN Gabapentin (Gabapentin ) 300 Mg Capsule, 300 MG PO BID for NEUROGENIC PAIN, (Reported) Entered as Reported by: JEAN BUNN RN on 04/06/19453 Last Taken: Unknown Dose on 04/05/19 Last Action: Continued on 04/06/19736 by ROULA COLBERT RN Insulin Glargine,Hum.rec.anlog (Lantus Solostar) 100 Unit/1 Ml Insuln.pen, 10 UNIT SQ QHS for diabetes, #15 Ref 3 (Reported) Entered as Reported by: JEAN BUNN RN on 04/06/19453 Last Taken: Unknown Dose on 04/05/19 Last Action: Converted on 04/06/19736 by ROULA COLBERT RN Insulin Lispro (Humalog) 100 Unit/1 Ml Vial, 5 UNIT SQ TIDWMEALS for diabetes, (Reported) Entered as Reported by: JEAN BUNN RN on 04/06/19453 Last Taken: Unknown Dose on 04/05/19 Last Action: Continued on 04/06/19736 by ROULA COLBERT RN Insulin Lispro (Humalog) 100 Unit/1 Ml Insuln.pen, 0 UNITS SQ TIDWMEALS for DM2 for 30 Days, #1 Sliding scale BG - 151-200 - 3u BG - 201-250 - 4u BG - 251-300 - 6u BG - 301- 350 - 7u BG >350 Call MD Prescribed by: RAMON BENITES MD on 04/12/19 1253 Lansoprazole (Prevacid) 30 Mg Tab.rap.dr, 30 MG FT DAILYAC for GERD for 30 Days, #30 Prescribed by: RAMON BENITES MD on 04/12/19 1253 Magnesium Oxide (Magnesium) 400 Mg Capsule, 500 MG PO DAILY for constipation, (Reported) Entered as Reported by: JEAN BUNN RN on 04/06/19453 Last Taken: Unknown Dose on 04/05/19 Last Action: Converted on 04/06/19 0737 by ROULA COLBERT RN [place]-3S/Dha/Epa/Fish Oil (Fish Oil [place]-3 Softgel) 1 Each Capsule.dr, 1 EACH PO DAILY for supplement, (Reported) Entered as Reported by: JEAN BUNN RN on 04/06/19 0454 Last Taken: Unknown Dose on 04/05/19 Last Action: Converted on 04/06/19736 by ROULA COLBERT RN Scheduled PRN Acetaminophen (Tylenol) 325 Mg Tablet, 650 MG PO PRN Q6HRS PRN for TEMP > 100.4F for 30 Days, #120 Prescribed by: RAMON BENITES MD on 04/12/19 1253 Miscellaneous Medications [mac] 25 mg/ 5 ml , 20 ML PO for 7 Days, #280 Ref 0 Prescribed by: DEWEY SARGENT MD on 03/28/19 2143 Discontinued Medications Nitrofurantoin Monohyd/M-Cryst (Macrobid 100 Mg Capsule) 100 Mg Capsule, 1 CAP PO BID, #14 Prescribed by: Lucretia Sahu APRN on 03/28/19 1939 RAMON BENITES MD Apr 12, 2019 13:38
[2019-04-12 15:53] VITALS: BP 155/56
--- NOTE | 2019-04-12 16:33 | NUR ---
JESUS following pt. ORders faxed to [facility] and pt agreeable with semi private room. [facility] requested orders to Switch to Jevity and have 4 bottles sent. Communicated with RNmauro to send bottles to pt's room. Mario from [facility] will call RN with a berry picker time. Addendum: 04/12/19 at 1648 by CAEDN LEE Pt will leave at 1900. Pt's daughter notified and agreeable.
--- NOTE | 2019-04-12 16:52 | NUR ---
PICC dc'd per order after explanation of procedure to patient. PICC dc per protocol with pressure held for 10 minutes, no bleeding at site, vaseline gauze, 4x4 gauze and pressure dressing applied. Patient tolerated procedure without any problems. Patient forgetful, but verb. understanding POC discharge to SNF and patient's daughter Etta notified by Social Work Moshe. See orders, notes, nursing interventions and communication.
--- NOTE | 2019-04-12 17:17 | NUR ---
Report to Viral ESPINOSA at [facility]. See nursing communication.
--- NOTE | 2019-04-12 19:09 | NUR ---
Patient discharge to [facility] per ambulance per jackson with copied chart and physician orders, 5 bottles of tube feed glucerna per request, patient's daughter took patient belongings home earlier today.
== END 2019-04-12 19:11 | DRG 871 ==
LOC: ER 16:59 → 6 SOUTH 20:40 → 5 SOUTH 04-09 16:30
PROVIDERS: ADMIT Internal Medicine; ATTEND Internal Medicine
PROC: 0DH63UZ Insertion of Feeding Device into Stomach, Percutaneous Approach (ICD-10-PCS; principal; 2019-04-11 15:00)
PROC: 0D758ZZ Dilation of Esophagus, Via Natural or Artificial Opening Endoscopic (ICD-10-PCS; 2019-04-11 15:00)
DX: A41.9 Sepsis, unspecified organism (principal); I63.9 Cerebral infarction, unspecified; G93.41 Metabolic encephalopathy; N39.0 Urinary tract infection, site not specified; E04.2 Nontoxic multinodular goiter; E11.42 Type 2 diabetes mellitus with diabetic polyneuropathy; E66.9 Obesity, unspecified; E87.6 Hypokalemia; I10 Essential (primary) hypertension; K22.2 Esophageal obstruction; K44.9 Diaphragmatic hernia without obstruction or gangrene; K57.30 Diverticulosis of large intestine without perforation or abscess without bleeding; M79.7 Fibromyalgia; R13.12 Dysphagia, oropharyngeal phase; Z82.49 Family history of ischemic heart disease and other diseases of the circulatory system; Z86.73 Personal history of transient ischemic attack (TIA), and cerebral infarction without residual deficits; Z90.711 Acquired absence of uterus with remaining cervical stump; Z91.81 History of falling; Z88.8 Allergy status to other drugs, medicaments and biological substances
CPT/HCPCS: 36415; 36569; 70450; 70496; 70498; 70551; 71045; 74230; 80048; 80053; 80061; 81001; 82962; 83605; 83735; 84484; 85025; 85610; 87040; 87086; 93005; 93306; 93880; 93971; 96361; 96374; 96375; J0696; J1815; J2704; J3480; J3490; J7030; J7042; J7120; Q9967; 92526; 92610; 92611; 97110; 97116; 97530; 97535; 99285-25; G0378